=== PATIENT | female | born 1935 | race Caucasian/White ===

== ENCOUNTER 2016-09-24 14:05 | Inpatient (IN) | payer OTHER ==
[~2016-09-24] VITALS: Ht 167.6 cm; Wt 64.0 kg
[~2016-09-24 14:05] MED LIST: AMT10 PO; ATV1 PO; BISA-16 PO; CHOL400C7 PO; CLTP PO; HYDR2TAB PO; HYDR2TAB48 PO; LEVO1TAB50 PO; LRS10 PO; POLY335040 PO
[2016-09-24] MEDS ORDERED: OPTIRAY 320 IV PRN (15:00)
[2016-09-24] MEDS ORDERED: CLINDAMYCIN IV 900 MG in DEXTROSE 5% ADD-VANTAGE 100ML 100 ML IV ONE (15:00)
[2016-09-24] MEDS ORDERED: MULT-513 PO (15:29)
[2016-09-24] MEDS ORDERED: FURO40TA3 PO (15:29)
[2016-09-24 16:04] LABS: COMPLETE YES; HEMATOCRIT 42.6 % (37-47); IG% 0.1 %; LYMPH % 6.4 %; LYMPH ABS # 0.57 K/uL (1.2-3.4); MEAN CELL VOLUME 87.8 fL (80-100); MEAN CORPUSCULAR HEMOGLOBIN 29.9 pg (25-34); MEAN PLATELET VOLUME 11.4 fL (7.4-10.4); MONO % 13.9 %; NEUT % 79.6 %; PLATELET COUNT 196 K/uL (130-400); RED BLOOD COUNT 4.85 M/uL (4.2-5.4); WHITE BLOOD COUNT 8.86 K/uL (4.8-10.8)
[2016-09-24 16:15] LABS: PROTHROMBIN TIME (PATIENT) 10.7 SECONDS (9.0-12.0)
[2016-09-24 16:26] LABS: BUN/CREATININE RATIO 11.5 (10-20); CALCIUM 9.1 mg/dl (8.5-10.1); CREATININE 0.52 mg/dl (0.60-1.20); POTASSIUM 3.4 mmol/L (3.5-5.1)
--- NOTE | 2016-09-24 17:27 | DIAGNOSTIC IMAGING REPORT ---
CT neck with intravenous contrast. HISTORY: Right neck swelling. eval for abscess/bulmaro TECHNIQUE: Multiaxial CT images of the neck were performed following the use of intravenous contrast. COMPARISON STUDY: None. FINDINGS: The paranasal sinuses and mastoid air cells are clear. The visualized brain parenchyma and orbits are unremarkable. The parotid and submandibular glands appear symmetric. Difficult evaluation of the neck due to patient's positioning. The major mucosal airway surfaces appear to be grossly intact. Prevertebral soft tissues and the epiglottis are normal in thickness. No pneumothorax. The trachea is patent. Moderate calcified plaque within the bilateral carotid bifurcations. This results in 30% stenosis at the proximal right internal carotid artery. No loculated fluid collections to suggest an abscess. Skin thickening and subcutaneous fat stranding along the right side of the jaw which appears to extend into the right sublingual area. However, this is difficult to confirm due to patient's positioning and the dental hardware artifact. There is also mild edema surrounding the inferior right sternocleidomastoid muscle. There is also mild edema surrounding the right masseter muscle. Multiple right lower molar caries and periapical lucencies which measure up to 5 mm in size. This may account for the right lower mandibular soft tissue edema. IMPRESSION: 1. Difficult evaluation due to patient's positioning. 2. Right lateral mandibular and lower neck subcutaneous fat stranding/edema which may extend towards the right sublingual space. However, this is difficult to assess due to patient positioning and the dental hardware artifact. Clinical correlation recommended to evaluate for Bulmaro's angina. There are no loculated fluid collections to suggest an abscess within the soft tissues at this time. 3. Right lower molar caries and periapical lucencies which may account for the right mandibular/neck soft tissue swelling. Electronically signed by: Sunil Hutton M.D. 09/24/2016 5:25 PM Dictated Date/Time: 09/24/2016 5:14 PM
[2016-09-24] MEDS ORDERED: HYDROmorphone HCL 2 MG TAB PO PRN (18:30)
[2016-09-24] MEDS ORDERED: CLINDAMYCIN 600 MG/54 ML D5W IV SCH (18:30)
[2016-09-24] MEDS ORDERED: ONDANSETRON INJ 2 MG/ML 2 ML VIAL IV PRN (18:45)
[2016-09-24] MEDS ORDERED: ACETAMINOPHEN 325 MG TAB PO PRN (18:45)
[2016-09-24] MEDS: HYDROmorphone HCL 2 MG TAB PO PRN ×2 (18:59→22:21)
[2016-09-24] MEDS ORDERED: BACLOFEN 10 MG TAB PO ONE (19:15)
[2016-09-24 19:47] VITALS: BP 169/91; PULSE 81; TEMP 37.2; O2SAT 93; Ht 167.6 cm; Wt 64.0 kg
[2016-09-24] MEDS ORDERED: LEVOTHYROXINE 50 MCG TAB PO ONE (20:00)
[2016-09-24] MEDS: CALCIUM 600MG + VIT D 400 IU TAB PO SCH (20:05)
--- NOTE | 2016-09-24 20:25 | EMERGENCY ROOM VISIT NOTE ---
History Report prepared by Francisco: Angella Brewster Under the Supervision of: Dr. Homer Burden M.D. First contact with patient: 14:39 Chief Complaint: OTHER COMPLAINT Stated Complaint: SWOLLEN FACE History of Present Illness The patient is a 81 year old female who presents to the Emergency Room with complaints of worsening right sided jaw swelling that began 2 days ago. The patient notes that she initially had some pain to her bottom right first molar a few days ago and subsequently developed the swelling. She does have increased pain with cold food and liquid on the right side of her mouth. She had a dose of Dilaudid about an hour ago. She is chronically on MS. Denies fever, body aches, chills, vomiting, or other complaints. Source of History: patient Onset: 2 days ago Position: other (right jaw) Quality: other (swelling) Timing: worsening Associated Symptoms: No chills, No fevers, No vomiting Review of Systems See HPI for pertinent positives & negatives. A total of 10 systems reviewed and were otherwise negative. Past Medical & Surgical Medical Problems: (1) Deep venous thrombosis (2) Diffuse cellulitis of face (3) Endocarditis (4) Hypothyroidism (5) Multiple sclerosis (6) Osteoporosis (7) s/p hysterectomy (8) s/p left LUCERO (9) s/p tonsillectomy Family History Cancer Diabetes mellitus Heart disease Hypertension Social History Smoking Status: Former Smoker Alcohol Use: none Occupation Status: retired Current/Historical Medications Scheduled Amitriptyline Hcl (Elavil *), 20 MG PO HS Baclofen (Baclofen *), 20 MG PO QID PRN Calcium/Vitamin D (Caltrate 600 Plus *), 1 TAB PO BID Cholecalciferol (Vitamin D 400 Iu), 800 INTER.UNIT PO DAILY Hydromorphone Hcl (Dilaudid), 6 MG PO DIRECTED Hydromorphone Hcl (Dilaudid), 4 MG PO DIRECTED Levothyroxine Sodium (Levoxyl), 0.05 MG PO DAILY Lorazepam (Ativan *), 1 MG PO BID Multivitamins/Minerals (Mvi With Minerals), 1 TAB PO DAILY Polyethylene (Miralax Powder Packet), 17 GM PO DAILY PRN Scheduled PRN Furosemide (Lasix), 1 TAB PO DAILY PRN for SWELLING Allergies Coded Allergies: Nitrofurantoin (Unverified Allergy, Severe, FEVER, 09/24/16) Ceftriaxone (Verified Allergy, Mild, 09/24/16) Penicillins (Verified Allergy, Mild, 09/24/16) Sulbactam (Verified Allergy, Mild, 09/24/16) Clavulanic Acid (Verified Allergy, Unknown, "BETA-LACTAMASE INHIBITORS" ALLERGY, 09/24/16) Rifampin (Verified Allergy, Unknown, POSSIBLE DRUG FEVER, 09/24/16) Tazobactam (Verified Allergy, Unknown, "BETA-LACTAMASE INHIBITORS" ALLERGY , 09/24/16) Physical Exam Vital Signs Date Time Temp Pulse Resp B/P Pulse Ox O2 Delivery O2 Flow Rate FiO2 09/24/16 18:15 87 16 173/91 95 Room Air 09/24/16 16:07 78 18 171/88 93 Room Air 09/24/16 14:15 37.0 92 18 186/90 94 Room Air Physical Exam Constitutional: Vital signs reviewed. Eyes: Pupils are equal round reactive to light. Conjunctiva are noninjected. ENT: Mild percussion tenderness to the right mandibular first molar. Significant soft tissue swelling to the right face with cellulitis extending into the neck. No submandibular tenderness or firmness. No elevation of the tongue. Mucous membranes are moist. Neck supple without meningeal signs. Respiratory: Clear to auscultation bilaterally. Breath sounds are equal bilaterally. Cardiovascular: Regular rate and rhythm. No rubs or gallops. GI: Soft, nondistended and nontender. Bowel sounds are present. Musculoskeletal: No peripheral edema. No lower extremity tenderness. Integumentary: No cyanosis. Neurological: The patient is awake and alert. She is wheelchair bound. Psychiatric: Normal affect. Medical Decision & Procedures ER Provider Diagnostic Interpretation: CT results as stated below per my review and radiologist interpretation. CT neck with intravenous contrast. HISTORY: Right neck swelling. eval for abscess/andre TECHNIQUE: Multiaxial CT images of the neck were performed following the use of intravenous contrast. COMPARISON STUDY: None. FINDINGS: The paranasal sinuses and mastoid air cells are clear. The visualized brain parenchyma and orbits are unremarkable. The parotid and submandibular glands appear symmetric. Difficult evaluation of the neck due to patient's positioning. The major mucosal airway surfaces appear to be grossly intact. Prevertebral soft tissues and the epiglottis are normal in thickness. No pneumothorax. The trachea is patent. Moderate calcified plaque within the bilateral carotid bifurcations. This results in 30% stenosis at the proximal right internal carotid artery. No loculated fluid collections to suggest an abscess. Skin thickening and subcutaneous fat stranding along the right side of the jaw which appears to extend into the right sublingual area. However, this is difficult to confirm due to patient's positioning and the dental hardware artifact. There is also mild edema surrounding the inferior right sternocleidomastoid muscle. There is also mild edema surrounding the right masseter muscle. Multiple right lower molar caries and periapical lucencies which measure up to 5 mm in size. This may account for the right lower mandibular soft tissue edema. IMPRESSION: 1. Difficult evaluation due to patient's positioning. 2. Right lateral mandibular and lower neck subcutaneous fat stranding/edema which may extend towards the right sublingual space. However, this is difficult to assess due to patient positioning and the dental hardware artifact. Clinical correlation recommended to evaluate for Andre's angina. There are no loculated fluid collections to suggest an abscess within the soft tissues at this time. 3. Right lower molar caries and periapical lucencies which may account for the right mandibular/neck soft tissue swelling. Electronically signed by: Sunil Hutton M.D. 09/24/2016 5:25 PM Dictated Date/Time: 09/24/2016 5:14 PM Laboratory Results 09/24/16 15:40 Red Blood Count 4.85, Mean Corpuscular Volume 87.8, Mean Corpuscular Hemoglobin 29.9, Mean Corpuscular Hemoglobin Concent 34.0, Mean Platelet Volume 11.4, Neutrophils (%) (Auto) 79.6, Lymphocytes (%) (Auto) 6.4, Monocytes (%) (Auto) 13.9, Eosinophils (%) (Auto) 0.0, Basophils (%) (Auto) 0.0, Neutrophils # (Auto ) 7.05, Lymphocytes # (Auto) 0.57, Monocytes # (Auto) 1.23, Eosinophils # (Auto ) 0.00, Basophils # (Auto) 0.00 09/24/16 15:40 Test 09/24/16 15:40 White Blood Count 8.86 K/uL (4.8-10.8) Red Blood Count 4.85 M/uL (4.2-5.4) Hemoglobin 14.5 g/dL (12.0-16.0) Hematocrit 42.6 % (37-47) Mean Corpuscular Volume 87.8 fL (80-100) Mean Corpuscular Hemoglobin 29.9 pg (25-34) Mean Corpuscular Hemoglobin Concent 34.0 g/dl (32-36) Platelet Count 196 K/uL (130-400) Mean Platelet Volume 11.4 fL (7.4-10.4) Neutrophils (%) (Auto) 79.6 % Lymphocytes (%) (Auto) 6.4 % Monocytes (%) (Auto) 13.9 % Eosinophils (%) (Auto) 0.0 % Basophils (%) (Auto) 0.0 % Neutrophils # (Auto) 7.05 K/uL (1.4-6.5) Lymphocytes # (Auto) 0.57 K/uL (1.2-3.4) Monocytes # (Auto) 1.23 K/uL (0.11-0.59) Eosinophils # (Auto) 0.00 K/uL (0-0.5) Basophils # (Auto) 0.00 K/uL (0-0.2) RDW Standard Deviation 44.7 fL (36.4-46.3) RDW Coefficient of Variation 13.9 % (11.5-14.5) Immature Granulocyte % (Auto) 0.1 % Immature Granulocyte # (Auto) 0.01 K/uL (0.00-0.02) Prothrombin Time 10.7 SECONDS (9.0-12.0) Prothromb Time International Ratio 1.0 (0.9-1.1) Activated Partial Thromboplast Time 26.6 SECONDS (21.0-31.0) Partial Thromboplastin Ratio 1.0 Anion Gap 11.0 mmol/L (3-11) Est Creatinine Clear Calc Drug Dose 80.7 ml/min Estimated GFR () 104.6 Estimated GFR (Non- 90.2 BUN/Creatinine Ratio 11.5 (10-20) Calcium Level 9.1 mg/dl (8.5-10.1) Laboratory results as reviewed by me. Medications Administered Medications (Trade) Dose Ordered Sig/It[place] Route Start Time Stop Time Status Last Admin Dose Admin Clindamycin Phosphate/Dextrose (Cleocin Iv/ Dextrose Add-[place] 100ML) 106 ml @ 100 mls/hr ONE ONCE IV 2/5/17 15:00 09/24/16 16:03 DC 09/24/16 16:02 100 MLS/HR Hydromorphone HCl (Dilaudid Tab) 4 mg Q3H PRN PO 09/24/16 18:30 10/08/16 18:29 09/24/16 18:59 4 MG ED Course 1443: The patient was evaluated in room B8. A complete history and physical exam was performed. 1500: Ordered Clindamycin Phosphate 900 mg/Dextrose 106 ml @ 100 mls/hr IV. 1748: I told the patient her test results and recommended hospitalization after I speak with an oral surgeon. 1754: I discussed the case with Dr. Mix - Oral Surgery. He said that there is no need for surgical intervention at this time and he will see the patient in the hospital once she is on IV antibiotics and her swelling comes down. 1800: I reassessed the patient and talked to her about the plan. She was agreeable. 180: I discussed the case with Leeann Sepulveda PA-C - [facility]. The patient will be evaluated for further management. Medical Decision This is an 81-year-old female who presents with right facial pain and swelling. Differential diagnosis includes cellulitis, infection, facial abscess, periapical abscess, Andre angina. I did perform a limited focused review of portions of the patient's old chart on the electronic medical record. The patient has had no recent pertinent visits to this hospital. I did evaluate the patient as noted above. IV access was established. I did treat the patient with clindamycin IV. She did have Dilaudid prior to arrival and so not require any pain medication here. I did order blood cultures. I did order and review the patient's blood work as noted in the electronic medical record. I did order a CT of the soft tissue neck. I did review the images myself as well as the radiology report as described above. She does have significant facial cellulitis. I do not believe that clinically she has a Andre's angina. There is no elevation of tongue or firmness in the submental region. She does have some swelling on the right jaw but this is mostly redundant tissue. I did discuss the test results with the patient. I did recommend hospitalization for IV antibiotics. I did discuss the case with Dr. Mix of oral surgery. I did discuss case with the hospitalist and case planner. Consults Time Called: 1749 Consulting Physician: Dr. Mix - Oral Surgery Returned Call: 1753 I discussed the case with him. He said that there is no need for surgical intervention at this time and he will see the patient in the hospital once she is on IV antibiotics and her swelling comes down. Additional Consults: Time Called: 1757 Consulted Physician: [facility] Returned Call: [phone] Additional Comments: I discussed the case with her. The patient will be evaluated for further management. Impression Primary Impression: Facial cellulitis Additional Impression: Periapical abscess Scribe Attestation The scribe's documentation has been prepared under my direct and personally reviewed by me in its entirety. I confirm that the note above accurately reflects all work, treatment, procedures, and medical decision making performed by me. Departure Information Dispostion Being Evaluated By Hospitalist Referrals Lee Keller D.O. (PCP) Patient Instructions My [facility] Problem Qualifiers
[2016-09-24] MEDS: NSS + 20MEQ KCL 1000ML 1,000 ML IV SCH (20:43)
[2016-09-24] MEDS: CLINDAMYCIN IV 600 MG in DEXTROSE 5% ADD-VANTAGE 50ML 50 ML IV SCH (20:44)
[2016-09-24] MEDS ORDERED: METHYLPREDNISOLONE IV 60 MG in SYRINGE 0 ML IV STA (21:20)
[2016-09-24] MEDS: AMITRIPTYLINE HCL 10 MG TAB PO SCH (22:20)
[2016-09-24] MEDS: BACLOFEN TAB 20 MG TAB PO PRN (22:22)
[2016-09-24] MEDS: LORAZEPAM 1 MG TAB PO SCH (22:23)
[2016-09-24] MEDS: HEPARIN SOD 5000 UNIT/0.5 ML CARP SQ SCH (22:30)
[2016-09-24 22:48] VITALS: BP 166/83; PULSE 75; TEMP 37.5; O2SAT 94
[2016-09-25] MEDS: CLINDAMYCIN IV 600 MG in DEXTROSE 5% ADD-VANTAGE 50ML 50 ML IV SCH ×4 (03:33→22:07)
[2016-09-25 05:27] LABS: HEMATOCRIT 38.9 % (37-47); MEAN CELL VOLUME 87.8 fL (80-100); MEAN CORPUSCULAR HGB CONC 34.2 g/dl (32-36); PLATELET COUNT 192 K/uL (130-400); RED BLOOD COUNT 4.43 M/uL (4.2-5.4); WHITE BLOOD COUNT 7.78 K/uL (4.8-10.8)
[2016-09-25] MEDS: HEPARIN SOD 5000 UNIT/0.5 ML CARP SQ SCH ×3 (05:39→22:11)
[2016-09-25] MEDS: LEVOTHYROXINE 50 MCG TAB PO SCH (05:41)
[2016-09-25 06:00] LABS: BUN/CREATININE RATIO 16.7 (10-20); CALCIUM 8.4 mg/dl (8.5-10.1); CREATININE 0.37 mg/dl (0.60-1.20); POTASSIUM 3.7 mmol/L (3.5-5.1)
--- NOTE | 2016-09-25 07:10 | HISTORY & PHYSICAL EXAMINATION ---
DATE OF ADMISSION: 09/24/2016 PRIMARY CARE PHYSICIAN: Dr. Keller. CHIEF COMPLAINT: Swelling of the right side of the face for the last 2 days. HISTORY OF PRESENT ILLNESS: Swelling of the right side of the face for the last 2 days and also she did have fever documented at home of about 99 degrees Fahrenheit. She came to the ER with these symptoms. She does not have any problem with breathing, does not have any problem with swallowing. In the ER, she was noted to have swollen right face on the lower side with induration on palpation and also tenderness on palpation with increased local temperature and redness. A CT scan of the soft tissue of the neck that was done today documented as right lateral mandibular and lower neck subcutaneous fat stranding/edema which may extend toward the right sublingual space. There is no loculated fluid collection suggesting abscess within the soft tissue at this time. Right lower molar caries and periapical lucencies, which may account for the right mandibular neck/soft tissue swelling. From that point, the ENT on-call physician was consulted and she was started with IV antibiotic and advised for admission. PAST MEDICAL HISTORY: Significant for multiple sclerosis affecting the legs and right side of the body with involvement of the bladder, history of deep venous thrombosis, osteoporosis, history of hepatitis and infective Endocarditis , mitral valve regurgitation, persistent insomnia, hypothyroidism and chronic anemia. 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 FAMILY HISTORY: Father had heart disorder. Sister has breast cancer, mother had a pacemaker and sister with hypertension. SOCIAL HISTORY: She is . She quit smoking 08/20/1975. Does not use any alcohol. She is mostly bedbound and mobile with a wheelchair and she gets help with ADLs most of the time. REVIEW OF SYSTEMS: Systemic review was unremarkable except those mentioned in history of present complaint. ALLERGIES: ALLERGIC TO CEFTRIAXONE, CLAVULANIC ACID, NITROFURANTOIN, PENICILLIN, RIFAMPIN, SULBACTAM AND TAZOBACTAM. MEDICATIONS: She has been on furosemide 40 mg 1 tablet daily, amitriptyline 10 mg tablet 20 mg daily, baclofen 20 mg q.i.d. as needed, calcium with vitamin D 1 tablet twice daily, vitamin D 400 unit tablet 2 tablets daily, hydromorphone/Dilaudid 4 mg as directed, also Dilaudid 6 mg as directed, levothyroxine sodium 50 mcg daily, lorazepam 1 mg b.i.d., multivitamin 1 tablet daily, MiraLax 17 grams daily. PHYSICAL EXAMINATION: GENERAL: On examination in the Emergency Room, she was not having any acute distress, but she complained of some pain in the right of the face. VITAL SIGNS: Temperature 37.0, pulse 87, blood pressure 173/91, saturation 95% on room air. HEENT: Remarkable for right lower facial swelling with induration, redness and increased local temperature and tenderness involving the right lower jaw area. No definite inflammation noted inside the mouth. NECK: Supple. CHEST: Clear to auscultation bilaterally with decreased breath sounds. HEART: S1, S2 with a 2/6 systolic murmur in the precordium. ABDOMEN: Soft, benign, nontender. EXTREMITIES: Trace edema bilaterally. EXAMINATION OF THE MUSCULOSKELETAL SYSTEM: No acute arthritis. CENTRAL NERVOUS SYSTEM: She was alert, awake. She has multiple sclerosis with flexion deformity involving the right upper extremity and also extension deformity involving the legs, more on the right than the left and she has chronic indwelling Alanis catheter. LABS NOTED TODAY: White count was 8.86, H\T\H 14.5/42.6, platelet was 196. Sodium 137, potassium 3.4, chloride 98, carbon dioxide 28, BUN 6, creatinine 0.52, calcium 9.1. Coagulation profile: PT/INR unremarkable. Imaging scans: CT of the soft tissue of the neck reported as difficult evaluation due to patient's positioning. Right lateral mandibular and lower neck subcutaneous fat stranding/edema which may extend toward the right sublingual space; however, this is difficult to asses due to patient's positioning and the dental hardware defect. Clinical correlation is recommended to evaluate for abscess. There is no loculated fluid collection to suggest an abscess within the soft tissue at this time. Right lower molar caries and periapical lucencies which may account for the right mandibular neck/soft tissue swelling. IMPRESSION AND PLAN: 1. Right lateral mandibular and lower face swelling. The patient will be admitted to medical floor. She may have cellulitis and/or dental abscess. Blood cultures were taken and she was started with intravenous clindamycin. The Emergency Room physician did talk to on-call oral surgeon. The patient will be evaluated while in the hospital from him. Pain medications as needed. 2. Multiple sclerosis with chronic indwelling Alanis catheter. No acute symptoms at this time, but she mentioned that she has been having more weakness involving the left side. She does have deformities in the right side and also in the legs from multiple sclerosis. 3. Hypothyroidism. Continue with current medications. 4. History of osteoporosis. Continue with the supplement. 5. Gastrointestinal prophylaxis with Maalox and Mylanta. 6. Deep venous thrombosis prophylaxis with subQ heparin. 7. Code status. She will be a full code. In my clinical judgment, the beneficiary meets criteria as per CMS for 2-midnight stay in the hospital. ROSANNE
[2016-09-25 07:52] VITALS: BP 158/80; PULSE 84; TEMP 37.5; O2SAT 90
[2016-09-25] MEDS: CEROVITE ADV FORMULA TAB PO SCH (09:00)
[2016-09-25] MEDS: CALCIUM 600MG + VIT D 400 IU TAB PO SCH ×2 (09:00→22:13)
[2016-09-25] MEDS ORDERED: LEVOTHYROXINE 50 MCG TAB PO SCH (09:00)
[2016-09-25] MEDS: CHOLECALCIFEROL 400 INTER.UNIT TAB PO SCH (09:00)
[2016-09-25] MEDS: LACTOBACILLUS ACIDOPHILUS (FLORANEX) TAB PO SCH ×3 (09:11→18:51)
[2016-09-25] MEDS: NSS + 20MEQ KCL 1000ML 1,000 ML IV SCH ×2 (09:11→22:07)
[2016-09-25] MEDS: LORAZEPAM 1 MG TAB PO SCH ×2 (09:11→22:05)
[2016-09-25] MEDS: POLYETHYLENE (MIRALAX) 17 GM PACK PO SCH (09:11)
[2016-09-25] MEDS: HYDROmorphone HCL 2 MG TAB PO PRN ×2 (09:12→13:16)
[2016-09-25] MEDS: BACLOFEN TAB 20 MG TAB PO PRN ×3 (09:13→22:13)
[2016-09-25 10:09] VITALS: O2SAT 90; O2SAT 95
--- NOTE | 2016-09-25 13:01 | Progress Note ---
Internal Med Progress Note Date of Service: Sep 25, 2016. Provider Documentation: SUBJECTIVE: The patient was seen and examined Swelling and pain over the right facial area are better No fever,chills OBJECTIVE: Vital Signs-as noted below Exam: General-No distress Eyes-normal ENT-normal Neck-Right lower facial swelling with induration over right lower lateral Jaw Associated swelling of the upper part of the neck Redness and tenderness are better Lungs-clear to ausucltate bilaterally Heart-Regular Abdomen-Benign,no masses,bowel sound present Extremities-No edema Neuro-AA Has MS and weakness in legs and right UE deformity Lab data as noted below. ASSESSMENT & PLAN: Right lateral mandibular and lower face Cellulitis No definite Abscess on CT scan Ongoing tooth problem in that same area Has been on Clindamycin Blood culture pending Discussed with the Orofacial surgery-will need the tooth to come and will be done as an OP Clinically much better Likely discharge tomorrow Multiple sclerosis with chronic indwelling Alanis catheter. No acute symptoms at this time, she has been having more weakness involving the left side. She does have deformities in the right side and also in the legs from multiple sclerosis. Hypothyroidism. Continue with current medications. History of osteoporosis. Continue with the supplement. Gastrointestinal prophylaxis with Maalox and Mylanta. Deep venous thrombosis prophylaxis with subQ heparin. Code status. She will be a full code. Vital Signs: Date Time Temp Pulse Resp B/P Pulse Ox O2 Delivery O2 Flow Rate FiO2 09/25/16 10:09 90 Room Air 09/25/16 07:52 37.5 84 20 158/80 90 Room Air 09/25/16 07:45 Room Air 09/25/16 00:05 Room Air 09/24/16 22:48 37.5 75 14 166/83 94 Room Air 09/24/16 19:47 37.2 81 20 169/91 93 Room Air 09/24/16 19:17 82 18 166/90 91 Room Air 09/24/16 18:15 87 16 173/91 95 Room Air 09/24/16 16:07 78 18 171/88 93 Room Air 09/24/16 14:15 37.0 92 18 186/90 94 Room Air Lab Results: Results Past 24 Hours Test 09/24/16 15:40 09/25/16 05:10 09/25/16 07:45 Range/Units White Blood Count 8.86 7.78 4.8-10.8 K/uL Red Blood Count 4.85 4.43 4.2-5.4 M/uL Hemoglobin 14.5 13.3 12.0-16.0 g/dL Hematocrit 42.6 38.9 37-47 % Mean Corpuscular Volume 87.8 87.8 80-100 fL Mean Corpuscular Hemoglobin 29.9 30.0 25-34 pg Mean Corpuscular Hemoglobin Concent 34.0 34.2 32-36 g/dl Platelet Count 196 192 130-400 K/uL Mean Platelet Volume 11.4 11.0 7.4-10.4 fL Neutrophils (%) (Auto) 79.6 % Lymphocytes (%) (Auto) 6.4 % Monocytes (%) (Auto) 13.9 % Eosinophils (%) (Auto) 0.0 % Basophils (%) (Auto) 0.0 % Neutrophils # (Auto) 7.05 1.4-6.5 K/uL Lymphocytes # (Auto) 0.57 1.2-3.4 K/uL Monocytes # (Auto) 1.23 0.11-0.59 K/uL Eosinophils # (Auto) 0.00 0-0.5 K/uL Basophils # (Auto) 0.00 0-0.2 K/uL RDW Standard Deviation 44.7 44.9 36.4-46.3 fL RDW Coefficient of Variation 13.9 14.0 11.5-14.5 % Immature Granulocyte % (Auto) 0.1 % Immature Granulocyte # (Auto) 0.01 0.00-0.02 K/uL Prothrombin Time 10.7 9.0-12.0 SECONDS Prothromb Time International Ratio 1.0 0.9-1.1 Activated Partial Thromboplast Time 26.6 21.0-31.0 SECONDS Partial Thromboplastin Ratio 1.0 Sodium Level 137 136 136-145 mmol/L Potassium Level 3.4 3.7 3.5-5.1 mmol/L Chloride Level 98 101 98-107 mmol/L Carbon Dioxide Level 28 24 21-32 mmol/L Anion Gap 11.0 11.0 3-11 mmol/L Blood Urea Nitrogen 6 6 7-18 mg/dl Creatinine 0.52 0.37 0.60-1.20 mg/dl Est Creatinine Clear Calc Drug Dose 80.7 113.5 ml/min Estimated GFR () 104.6 117.0 Estimated GFR (Non- 90.2 100.9 BUN/Creatinine Ratio 11.5 16.7 10-20 Random Glucose 98 134 70-99 mg/dl Calcium Level 9.1 8.4 8.5-10.1 mg/dl Bedside Glucose 115 70-90 mg/dl Microbiology Results 09/24/16 Blood Culture, Received Pending 09/24/16 Blood Culture, Received Pending
[2016-09-25 15:15] VITALS: BP 125/71; PULSE 73; TEMP 37; O2SAT 90
[2016-09-25 15:45] VITALS: O2SAT 90
[2016-09-25] MEDS: AMITRIPTYLINE HCL 10 MG TAB PO SCH (22:05)
[2016-09-25 23:18] VITALS: BP 159/94; PULSE 87; TEMP 37; O2SAT 92
[2016-09-26] MEDS: CLINDAMYCIN IV 600 MG in DEXTROSE 5% ADD-VANTAGE 50ML 50 ML IV SCH ×2 (03:45→09:19)
[2016-09-26] MEDS: LEVOTHYROXINE 50 MCG TAB PO SCH (05:33)
[2016-09-26] MEDS: HEPARIN SOD 5000 UNIT/0.5 ML CARP SQ SCH ×2 (05:53→13:56)
[2016-09-26] MEDS: BACLOFEN TAB 20 MG TAB PO PRN ×2 (05:56→09:13)
[2016-09-26 07:41] VITALS: BP 135/75; PULSE 72; TEMP 37; O2SAT 90
[2016-09-26] MEDS: CALCIUM 600MG + VIT D 400 IU TAB PO SCH (09:00)
[2016-09-26] MEDS: POLYETHYLENE (MIRALAX) 17 GM PACK PO SCH (09:00)
[2016-09-26] MEDS: CHOLECALCIFEROL 400 INTER.UNIT TAB PO SCH (09:00)
[2016-09-26] MEDS: LACTOBACILLUS ACIDOPHILUS (FLORANEX) TAB PO SCH ×2 (09:11→12:33)
[2016-09-26] MEDS: CEROVITE ADV FORMULA TAB PO SCH (09:15)
[2016-09-26] MEDS: HYDROmorphone HCL 2 MG TAB PO PRN (09:18)
[2016-09-26] MEDS: LORAZEPAM 1 MG TAB PO SCH (09:18)
[2016-09-26] MEDS: NSS + 20MEQ KCL 1000ML 1,000 ML IV SCH (12:33)
--- NOTE | 2016-09-26 13:18 | Progress Note ---
Internal Med Progress Note Date of Service: Sep 26, 2016. Provider Documentation: SUBJECTIVE: The patient was seen and examined Swelling and pain over the right facial area are much better No fever,chills Remains stable OBJECTIVE: Vital Signs-as noted below Exam: General-No distress at rest Eyes-normal ENT-normal Neck-Right lower facial swelling with induration over right lower lateral Jaw Associated swelling of the upper part of the neck Redness and tenderness are better No fluctuation but still has the induration Lungs-clear to ausucltate bilaterally Heart-Regular Abdomen-Benign,no masses,bowel sound present Extremities-No edema Neuro-AA Has MS and weakness in legs and right UE deformity Lab data as noted below. ASSESSMENT & PLAN: Right lateral mandibular and lower face Cellulitis No definite Abscess on CT scan Ongoing tooth problem in that same area Has been on Clindamycin Blood culture pending Discussed with the Orofacial surgery-will need the tooth to come and will be done as an OP Clinically much better Only Induration but no fluctuation Discussed with Dr Mix -will see her tomorrow AM Multiple sclerosis with chronic indwelling Alanis catheter. No acute symptoms at this time, she has been having more weakness involving the left side. She does have deformities in the right side and also in the legs from multiple sclerosis. Hypothyroidism. Continue with current medications. History of osteoporosis. Continue with the supplement. Gastrointestinal prophylaxis with Maalox and Mylanta. Deep venous thrombosis prophylaxis with subQ heparin. Code status. She will be a full code. Discharge today Vital Signs: Date Time Temp Pulse Resp B/P Pulse Ox O2 Delivery O2 Flow Rate FiO2 09/26/16 07:41 Room Air 09/26/16 07:41 37.0 72 18 135/75 90 Room Air 09/25/16 23:45 Room Air 92 09/25/16 23:18 37.0 87 18 159/94 92 Room Air 09/25/16 15:45 90 09/25/16 15:15 37.0 73 16 125/71 90 Room Air
[2016-09-26] MEDS ORDERED: LCTX PO (13:24)
[2016-09-26] MEDS ORDERED: CLIN300C2 PO (13:24)
--- NOTE | 2016-09-26 13:27 | Discharge Instructions ---
Discharge Instructions Admission Reason for Admission: Diffuse Cellulitis Of Face Discharge Discharge Diagnosis / Problem: Facila Cellulitis,Infected tooth Discharge Goals Goal(s): Prevent Disease Progression Activity Recommendations Activity Limitations: resume your previous activity . Instructions / Follow-Up Instructions / Follow-Up Dr Keller on 10/02/16 at 11:10AM.Dr Mix's office will call for appointment Current Hospital Diet Patient's current hospital diet: Regular Diet Discharge Diet Recommended Diet: Regular Diet Pending Studies Studies pending at discharge: no Medical Emergencies . Who to Call and When: Medical Emergencies: If at any time you feel your situation is an emergency, please call 911 immediately. . Non-Emergent Contact Non-Emergency issues call your: Primary Care Provider . . "Provider Documentation" section prepared by Sherry Gillette. VTE Core Measure Inpt VTE Proph given/why not?: Unfractionated heparin SQ
[2016-09-26 13:59] VITALS: BP 135/75; PULSE 72; TEMP 37; O2SAT 90
[2016-09-26] MEDS ORDERED: CLINDAMYCIN HCL 150 MG CAP PO SCH (14:00)
--- NOTE | 2016-09-27 08:22 | Discharge Summary ---
Discharge Summary Admission Date: Sep 24, 2016 at 18:46 Discharge Date: Sep 26, 2016 Discharge Disposition: Home with services Principal Diagnosis: Right facial Cellulitis/Abscess.Dental Infection Secondary Diagnoses/Problems: Please see H&P Medication Reconciliation New Medications: Clindamycin Hcl (Cleocin) 300 Mg Cap 300 MG PO TID for 7 Days, #21 CAP Lactobacillus Acidophilus (Floranex) 1 Tab Tab 2 TAB PO BID for 10 Days, #40 TAB Continued Medications: Amitriptyline Hcl (Elavil *) 10 Mg Tab 20 MG PO HS Baclofen (Baclofen *) 10 Mg Tab 20 MG PO QID PRN Calcium/Vitamin D (Caltrate 600 Plus *) Tab 1 TAB PO BID Cholecalciferol (Vitamin D 400 Iu) 400 Unit Cap 800 INTER.UNIT PO DAILY, CAP Furosemide (Lasix) 40 Mg Tab 1 TAB PO DAILY PRN for SWELLING for 30 Days, #30 TAB 5 Refills Hydromorphone Hcl (Dilaudid) 2 Mg Tab 6 MG PO DIRECTED, TAB Q 3 HOURS FOR SEVERE PAIN Hydromorphone Hcl (Dilaudid) 2 Mg Tab 4 MG PO DIRECTED, TAB Q 3 HOURS FOR MOERATE PAIN Levothyroxine Sodium (Levoxyl) 50 Mcg Tab 0.05 MG PO DAILY, TAB Lorazepam (Ativan *) 1 Mg Tab 1 MG PO BID Multivitamins/Minerals (Mvi With Minerals) Tab 1 TAB PO DAILY, TAB Polyethylene (Miralax Powder Packet) 17 Gm Pack 17 GM PO DAILY PRN, PACK Admission Information HPI (per Admitting provider): DATE OF ADMISSION: 09/24/2016 PRIMARY CARE PHYSICIAN: Dr. Keller. CHIEF COMPLAINT: Swelling of the right side of the face for the last 2 days. HISTORY OF PRESENT ILLNESS: Swelling of the right side of the face for the last 2 days and also she did have fever documented at home of about 99 degrees Fahrenheit. She came to the ER with these symptoms. She does not have any problem with breathing, does not have any problem with swallowing. In the ER, she was noted to have swollen right face on the lower side with induration on palpation and also tenderness on palpation with increased local temperature and redness. A CT scan of the soft tissue of the neck that was done today documented as right lateral mandibular and lower neck subcutaneous fat stranding/edema which may extend toward the right sublingual space. There is no loculated fluid collection suggesting abscess within the soft tissue at this time. Right lower molar caries and periapical lucencies, which may account for the right mandibular neck/soft tissue swelling. From that point, the ENT on-call physician was consulted and she was started with IV antibiotic and advised for admission. PAST MEDICAL HISTORY: Significant for multiple sclerosis affecting the legs and right side of the body with involvement of the bladder, history of deep venous thrombosis, osteoporosis, history of hepatitis and infective Endocarditis , mitral valve regurgitation, persistent insomnia, hypothyroidism and chronic anemia. 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 FAMILY HISTORY: Father had heart disorder. Sister has breast cancer, mother had a pacemaker and sister with hypertension. SOCIAL HISTORY: She is . She quit smoking 08/20/1975. Does not use any alcohol. She is mostly bedbound and mobile with a wheelchair and she gets help with ADLs most of the time. REVIEW OF SYSTEMS: Systemic review was unremarkable except those mentioned in history of present complaint. ALLERGIES: ALLERGIC TO CEFTRIAXONE, CLAVULANIC ACID, NITROFURANTOIN, PENICILLIN, RIFAMPIN, SULBACTAM AND TAZOBACTAM. MEDICATIONS: She has been on furosemide 40 mg 1 tablet daily, amitriptyline 10 mg tablet 20 mg daily, baclofen 20 mg q.i.d. as needed, calcium with vitamin D 1 tablet twice daily, vitamin D 400 unit tablet 2 tablets daily, hydromorphone/Dilaudid 4 mg as directed, also Dilaudid 6 mg as directed, levothyroxine sodium 50 mcg daily, lorazepam 1 mg b.i.d., multivitamin 1 tablet daily, MiraLax 17 grams daily. PHYSICAL EXAMINATION: GENERAL: On examination in the Emergency Room, she was not having any acute distress, but she complained of some pain in the right of the face. VITAL SIGNS: Temperature 37.0, pulse 87, blood pressure 173/91, saturation 95% on room air. HEENT: Remarkable for right lower facial swelling with induration, redness and increased local temperature and tenderness involving the right lower jaw area. No definite inflammation noted inside the mouth. NECK: Supple. CHEST: Clear to auscultation bilaterally with decreased breath sounds. HEART: S1, S2 with a 2/6 systolic murmur in the precordium. ABDOMEN: Soft, benign, nontender. EXTREMITIES: Trace edema bilaterally. EXAMINATION OF THE MUSCULOSKELETAL SYSTEM: No acute arthritis. CENTRAL NERVOUS SYSTEM: She was alert, awake. She has multiple sclerosis with flexion deformity involving the right upper extremity and also extension deformity involving the legs, more on the right than the left and she has chronic indwelling Alanis catheter. LABS NOTED TODAY: White count was 8.86, H\\T\\H 14.5/42.6, platelet was 196. Sodium 137, potassium 3.4, chloride 98, carbon dioxide 28, BUN 6, creatinine 0.52, calcium 9.1. Coagulation profile: PT/INR unremarkable. Imaging scans: CT of the soft tissue of the neck reported as difficult evaluation due to patient's positioning. Right lateral mandibular and lower neck subcutaneous fat stranding/edema which may extend toward the right sublingual space; however, this is difficult to asses due to patient's positioning and the dental hardware defect. Clinical correlation is recommended to evaluate for abscess. There is no loculated fluid collection to suggest an abscess within the soft tissue at this time. Right lower molar caries and periapical lucencies which may account for the right mandibular neck/soft tissue swelling. IMPRESSION AND PLAN: 1. Right lateral mandibular and lower face swelling. The patient will be admitted to medical floor. She may have cellulitis and/or dental abscess. Blood cultures were taken and she was started with intravenous clindamycin. The Emergency Room physician did talk to on-call oral surgeon. The patient will be evaluated while in the hospital from him. Pain medications as needed. 2. Multiple sclerosis with chronic indwelling Alanis catheter. No acute symptoms at this time, but she mentioned that she has been having more weakness involving the left side. She does have deformities in the right side and also in the legs from multiple sclerosis. 3. Hypothyroidism. Continue with current medications. 4. History of osteoporosis. Continue with the supplement. 5. Gastrointestinal prophylaxis with Maalox and Mylanta. 6. Deep venous thrombosis prophylaxis with subQ heparin. 7. Code status. She will be a full code. In my clinical judgment, the beneficiary meets criteria as per CMS for 2-midnight stay in the hospital. Hospital Course Right lateral mandibular and lower face Cellulitis No definite Abscess on CT scan Ongoing tooth problem in that same area Has been on Clindamycin Blood culture pending Discussed with the Orofacial surgery-will need the tooth to come and will be done as an OP Clinically much better Only Induration but no fluctuation Discussed with Dr Mix -will see her tomorrow AM Multiple sclerosis with chronic indwelling Alanis catheter. No acute symptoms at this time, she has been having more weakness involving the left side. She does have deformities in the right side and also in the legs from multiple sclerosis. Hypothyroidism. Continue with current medications. History of osteoporosis. Continue with the supplement. Gastrointestinal prophylaxis with Maalox and Mylanta. Deep venous thrombosis prophylaxis with subQ heparin. Code status. She will be a full code. Discharge today Total time spent on discharge = 35 minutes This includes examination of the patient, discharge planning, medication reconciliation, and communication with other providers. Discharge Instructions Admission Reason for Admission: Diffuse Cellulitis Of Face Discharge Discharge Diagnosis / Problem: Facial Cellulitis,Infected tooth Discharge Goals Goal(s): Prevent Disease Progression Activity Recommendations Activity Limitations: resume your previous activity . Instructions / Follow-Up Instructions / Follow-Up Dr Keller on 10/02/16 at 11:10AM.Dr Mix's office will call for appointment Current Hospital Diet Patient's current hospital diet: Regular Diet Discharge Diet Recommended Diet: Regular Diet Pending Studies Studies pending at discharge: no Medical Emergencies . Who to Call and When: Medical Emergencies: If at any time you feel your situation is an emergency, please call 911 immediately. . Non-Emergent Contact Non-Emergency issues call your: Primary Care Provider . . "Provider Documentation" section prepared by Sherry Gillette. VTE Core Measure Inpt VTE Proph given/why not?: Unfractionated heparin SQ <Electronically signed by Sherry Gillette M.D.> Additional Copies To Lee Keller D.O.
== END 2016-09-26 15:58 | disposition home health service (06) | DRG 158 ==
LOC: ENRESERVDT → ENRESERVTM → C.EDB 14:06 → C.MSW 18:46
PROVIDERS: ADMIT Internal Medicine; ATTEND Internal Medicine
DX: K04.7 Periapical abscess without sinus (principal); L03.211 Cellulitis of face; G35 Multiple sclerosis; E03.9 Hypothyroidism, unspecified; D64.9 Anemia, unspecified; M81.0 Age-related osteoporosis without current pathological fracture; M21.821 Other specified acquired deformities of right upper arm; M21.852 Other specified acquired deformities of left thigh; M21.851 Other specified acquired deformities of right thigh; Z96.642 Presence of left artificial hip joint; Z96.0 Presence of urogenital implants; Z99.3 Dependence on wheelchair; Z87.891 Personal history of nicotine dependence; Z86.718 Personal history of other venous thrombosis and embolism; Z79.891 Long term (current) use of opiate analgesic; Z79.899 Other long term (current) drug therapy

== ENCOUNTER → 2018-03-19 | Outpatient (CLI) | payer OTHER ==
[~2018-03-19] MED LIST changes: +AMIT10TA6 PO; -AMT10 PO; +ASPI-320 PO; +ATV/1 PO; -ATV1 PO; +BACL10TA PO; -BISA-16 PO; +CALC-354 PO; -CHOL400C7 PO; +CLC100 PO; -CLTP PO; +ERGO500011 PO; +FRRS300 PO; +FRS/40 PO; -HYDR2TAB PO; -LEVO1TAB50 PO; +LEVO50TA PO; +LPR25 PO; -LRS10 PO; +LVQ500 PO; +MULT-513 PO; +POLY335019 PO; -POLY335040 PO; +TUMS PO
[2018-03-19 18:38] LABS: HEMATOCRIT 35.3 % (37-47); HEMOGLOBIN 11.3 g/dL (12.0-16.0); MEAN CELL VOLUME 91.2 fL (80-100); MEAN CORPUSCULAR HEMOGLOBIN 29.2 pg (25-34); MEAN PLATELET VOLUME 10.9 fL (7.4-10.4); PLATELET COUNT 260 K/uL (130-400); RED CELL DISTRIBUTION WIDTH CV 16.3 % (11.5-14.5); RED CELL DISTRIBUTION WIDTH SD 54.4 fL (36.4-46.3); WHITE BLOOD COUNT 6.51 K/uL (4.8-10.8)
[2018-03-19 18:50] LABS: BLOOD UREA NITROGEN 5 mg/dl (7-18); CALCIUM 8.4 mg/dl (8.5-10.1); CARBON DIOXIDE 28 mmol/L (21-32); CREATININE 0.41 mg/dl (0.60-1.20); GLUCOSE 137 mg/dl (70-99); POTASSIUM 3.6 mmol/L (3.5-5.1); SODIUM 136 mmol/L (136-145)
== END | disposition home or self-care (01) ==
LOC: C.LABSPEC 17:58
PROVIDERS: ATTEND Internal Medicine
DX: D50.9 Iron deficiency anemia, unspecified (principal)

== ENCOUNTER 2019-10-26 21:36 | Inpatient (IN) ==
[2019-10-26] MEDS ORDERED: SODIUM CHLORIDE 0.9% 1000ML 1,000 ML IV SCH (22:00)
--- NOTE | 2019-10-26 22:12 | XRay Report ---
SINGLE VIEW CHEST CLINICAL HISTORY: Seizure. FINDINGS: 2 AP, portable, semierect chest radiographs are compared to study dated 08/19/2018. Correla tion is made with chest CT dated 02/14/2018. The examination is severely degraded by portable techniqu e, scoliosis, and patient rotation. The heart is enlarged and there is atherosclerotic calcification of the thoracic aorta. The pulmonary vasculature is noncongested. Chronic interstitial thickening is similar to previous. Biapical scarring is observed. Patchy airspace consolidation is seen in the righ t upper lobe. Dense consolidation is noted at the right lung base. No large pleural effusion or pneum othorax is seen. The skeletal structures are osteopenic. Degenerative change and scoliosis are noted in the thoracic spine. IMPRESSION: 1. Cardiomegaly without radiographic evidence of congestive failure. 2. There is patchy airspace consolidation in the right upper lobe with dense airspace consolidation a t the right lung base. Correlate clinically for evidence of pneumonia/aspiration pneumonitis. Radiogr aphic follow-up to resolution is recommended. Electronically signed by: Min Faustin M.D. 10/26/2019 10:11 PM
[2019-10-26 22:49] LABS: Basophils # (auto) 0.01 K/uL (0-0.2); Basophils % (auto) 0.2 %; Eosinophils # (auto) 0.03 K/uL (0-0.5); Eosinophils % (auto) 0.5 %; Hematocrit (blood only) 41.8 % (37-47); Hemoglobin 14.2 g/dL (12.0-16.0); Immature Granulocytes # (auto) 0.02 K/uL (0.00-0.02); Immature Granulocytes % (auto) 0.3 %; Lymphocytes # (auto) 0.58 K/uL (1.2-3.4); Mean Corpuscular Hemoglobin 29.2 pg (25-34); Mean Corpuscular Volume 85.8 fL (80-100); Mean Platelet Volume 10.7 fL (7.4-10.4); Monocytes # (auto) 0.66 K/uL (0.11-0.59); Monocytes % (auto) 10.2 %; Neutrophils # (auto) 5.16 K/uL (1.4-6.5); Neutrophils % (auto) 79.8 %; Platelet Count 198 K/uL (130-400); RDW Coefficient of Variation 15.4 % (11.5-14.5); RDW Standard Deviation 48.9 fL (36.4-46.3); Red Blood Count 4.87 M/uL (4.2-5.4); White Blood Count 6.46 K/uL (4.8-10.8)
--- NOTE | 2019-10-26 22:59 | CT Scan Report ---
CT SCAN OF THE BRAIN WITHOUT IV CONTRAST CLINICAL HISTORY: Seizure. COMPARISON STUDY: CT of the brain dated 07/30/2018. TECHNIQUE: Unenhanced axial CT scan of the brain is performed from the vertex to the skull base. A do se lowering technique was utilized adhering to the principles of ALARA. The examination is modestly d egraded by motion artifact. CT DOSE: 537.48 mGy.cm FINDINGS: Brain parenchyma: There are age-related involutional changes noting moderate to advanced subcortical and periventricular microangiopathic change. Foci of right temporal and right parietal encephalomala rodriguez are consistent with a remote insult. There is no hemorrhage, mass effect, or evidence of acute te rritorial ischemia by CT criteria. Natarajan-white matter differentiation is preserved. No extra-axial flu id collection is seen. Ventricles, sulci, cisterns: Prominent secondary to involutional change. Intracranial vasculature: There is atherosclerotic calcification of the cavernous carotid arteries. Calvarium: Unremarkable. Sinuses and mastoids: The visualized paranasal sinuses are clear. The mastoid air cells are well pneu matized. Orbits: The bony orbits are grossly intact. IMPRESSION: There is no hemorrhage, mass effect, or evidence of acute territorial ischemia by CT laura rodriguez. ACT 112: Negative or not required by law. Electronically signed by: Min Faustin M.D. 10/26/2019 10:58 PM
[2019-10-26 23:07] LABS: Alanine Aminotransferase 11 U/L (12-78); Albumin Level 3.7 gm/dl (3.4-5.0); Aspartate Aminotransferase 20 U/L (15-37); BUN Creatinine Ratio 36.7 (10-20); Blood Urea Nitrogen 17 mg/dl (7-18); Carbon Dioxide 27 mmol/L (21-32); Chloride 95 mmol/L (98-107); Est GFR (African American) 107.4; Est GFR (Non-African American) 92.7; Glucose 111 mg/dl (70-99); Lipase 36 U/L (73-393); Magnesium 1.8 mg/dl (1.8-2.4); Potassium 3.9 mmol/L (3.5-5.1); Sodium 130 mmol/L (136-145)
[2019-10-26 23:10] LABS: INR 1.1 (0.9-1.1); Partial Thromboplastin Time 27.6 Seconds (21.0-31.0); Prothrombin Time 11.5 Seconds (9.0-12.0)
[2019-10-26 23:11] LABS: Alkaline Phosphatase 130 U/L (45-117); Bilirubin Direct 0.3 mg/dl (0-0.2); Creatine Kinase 107 U/L (26-192); Total Protein 8.1 gm/dl (6.4-8.2)
[2019-10-26] MEDS ORDERED: metroNIDAZOLE 500 MG/100 ML BAG IV STA (23:17)
[2019-10-26] MEDS ORDERED: LEVOFLOXACIN/D5W 750 MG/150 ML BAG IV SCH (23:30)
--- NOTE | 2019-10-26 23:57 | Emergency Department Note ---
Entered by Hien Mosquera acting as a scribe for Marek Thurman History of Present Illness General Chief complaint: Seizure Stated complaint: SEIZURE, AMS, AGITATED, COMBATIVE Time Seen by Provider: 10/26/19 21:42 Source: patient Mode of arrival: EMS Limitations: altered mental status History of Present Illness Onset (ago): hour(s) less than 1 Location: head Pain Consistency: + constant Quality: + other (seizure) Relieved By: + none Exacerbated By: + none Treatments prior to arrival: none The patient is a 84 year old female who presents to the Emergency Room with complaints of seizure that occurred less than an hour ago. EMS reports that the patient is bed all the time. Her seizure reportedly lasted about 1 minute. The patient has a history of MS and A fib. History is limited due to altered mental status. Home Medications Home Medications Medication Instructions Recorded Confirmed Type amitriptyline 20 mg PO HS 07/30/18 10/26/19 History aspirin 81 mg PO DAILY 07/30/18 10/26/19 History baclofen 20 mg PO QID 07/30/18 10/26/19 History levothyroxine 50 mcg PO DAILY 07/30/18 10/26/19 History metoprolol tartrate 12.5 mg PO BID 07/30/18 10/26/19 History polyethylene glycol 3350 [Miralax] 17 g PO DAILY PRN 07/30/18 10/26/19 History lorazepam [Ativan] 0.5 mg PO BID PRN 07/31/18 10/26/19 History lorazepam [Ativan] 1 mg PO HS 07/31/18 10/26/19 History levofloxacin 500 mg tablet 500 mg PO DAILY #30 tab 08/15/19 10/26/19 Rx calcium carbonate-vitamin D3 1 tab PO DAILY 10/26/19 10/26/19 History [Caltrate with Vitamin D3] furosemide 40 mg PO DAILY PRN 10/26/19 10/26/19 History hydromorphone [Dilaudid] 4 mg PO Q3H PRN 10/26/19 10/26/19 History nystatin 1 applic TOPICAL BID 10/26/19 10/26/19 History Allergies Allergy/AdvReac Type Severity Reaction Status Date / Time nitrofurantoin Allergy Severe FEVER Verified 08/26/19 11:30 ceftriaxone Allergy Mild Unknown Verified 08/26/19 11:30 Penicillins Allergy Mild Unknown Verified 08/26/19 11:30 sulbactam Allergy Mild Unknown Verified 08/26/19 11:30 Bactrim Allergy Unknown RASH/HIVES Verified 01/15/18 17:49 clavulanic acid Allergy Unknown "BETA-LACTAMASE Verified 08/26/19 11:30 INHIBITORS" ALLERGY clindamycin Allergy Unknown RASH Verified 08/26/19 11:30 rifampin Allergy Unknown POSSIBLE Verified 08/26/19 11:30 DRUG FEVER sulfamethoxazole Allergy Unknown RASH/HIVES Verified 08/26/19 11:30 tazobactam Allergy Unknown "BETA-LACTAMASE Verified 08/26/19 11:30 INHIBITORS" ALLERGY trimethoprim Allergy Unknown RASH/HIVES Verified 08/26/19 11:30 Past Med/Surg History Medical History Acute CVA (cerebrovascular accident) (Acute) GERD (gastroesophageal reflux disease) (Chronic) History of hepatitis (Chronic) Mitral regurgitation (Chronic) Multiple sclerosis (Chronic) Osteomyelitis (Acute) Permanent atrial fibrillation Sacral decubitus ulcer, stage III (Acute) Surgical History H/O cystoscopy (Chronic) S/P hysterectomy (Resolved Unknown) S/P tonsillectomy (Resolved Unknown) Family History Other Family history non-contributory Social History Preferred Language: Georgian Communication Ability: Effective Beliefs That Will Affect Care: None marital status: / Current Living Situation: Family Current Living Situation Comment: lives with son Feels Safe at Home: Yes Smoking Status: Unknown if ever smoked Hx Alcohol Use: No Hx Substance Use: No Review of Systems See HPI for pertinent positives & negatives. and A total of 10 systems reviewed and were otherwise negative Physical Exam Vital Signs Vital Signs - 24 hr 10/26/19 21:36 10/26/19 21:54 10/26/19 21:56 Temperature 36.4 C L Temperature Source Oral Pulse Rate 96 H 92 H Pulse Rate from SpO2 Sensor 88 Respiratory Rate 23 Respiratory Depth Normal Blood Pressure 169/111 H Blood Pressure Mean 130 Pulse Oximetry 93 93 Oxygen Delivery Method Room Air Room Air Room Air Sepsis Recent Fever Within 48 Hours No Sepsis New/Unexplained Change in Mental Status Yes Sepsis Action Taken by Nursing No Action Required 10/26/19 22:00 10/26/19 22:52 10/26/19 23:00 Temperature Temperature Source Pulse Rate 86 84 90 Pulse Rate from SpO2 Sensor Respiratory Rate 16 21 Respiratory Depth Blood Pressure 171/110 H 175/127 H Blood Pressure Mean 139 139 Pulse Oximetry 93 96 Oxygen Delivery Method Room Air Room Air Sepsis Recent Fever Within 48 Hours Sepsis New/Unexplained Change in Mental Status Sepsis Action Taken by Nursing 10/26/19 23:01 Temperature Temperature Source Pulse Rate 93 H Pulse Rate from SpO2 Sensor Respiratory Rate 15 Respiratory Depth Blood Pressure Blood Pressure Mean Pulse Oximetry 96 Oxygen Delivery Method Room Air Sepsis Recent Fever Within 48 Hours Sepsis New/Unexplained Change in Mental Status Sepsis Action Taken by Nursing GENERAL: She is oriented to person, place, and time. She appears well-developed and well-nourished. She does not appear distressed. HENT: Exam performed. Head: Normocephalic and atraumatic. Right Ear: External ear normal. No mastoid tenderness. Left Ear: External ear normal. No mastoid tenderness. Mouth/Throat: Dry mucus membranes. The oropharynx is clear and moist. No trismus in the jaw. No dental abscesses or uvula swelling. No oropharyngeal exudate or tonsillar abscesses. EYES: Conjunctivae and EOM are normal. Pupils are equal, round, and reactive to light. Right eye exhibits no discharge. Left eye exhibits no discharge. No scleral icterus. NECK: Normal range of motion. Neck supple. No JVD present. No spinous process tenderness present. No carotid bruit present. No rigidity. No tracheal deviation and normal range of motion present. No Brudzinski's sign and no Kernig's sign noted. CV: Normal rate, regular rhythm, normal heart sounds and intact distal pulses. There is no peripheral edema. Palpable radial pulses bue. PULM/CHEST: Effort normal and breath sounds normal. No respiratory distress. No stridor. She has no wheezes. She has no rales. Chest Wall: She exhibits no tenderness. ABD: Alanis with purulent looking urine. The abdomen is soft. Bowel sounds are normal. She has no distension. No mass is present. There is no tenderness. There is no rebound, no guarding, no Munoz's sign and no tenderness at McBurney's point. Rovsig negative BACK: Ulcer that is packed. No surrounding discharge or erythema. MUSC/SKEL: Normal range of motion. There is no peripheral edema, tenderness or deformity. LYMPH: No cervical adenopathy. NEURO: She is alert and oriented x 0. Paraplegic. She has normal strength. No cranial nerve deficit or sensory deficit. Coordination and gait normal. GCS eye subscore is 4. GCS verbal subscore is 5. GCS motor subscore is 6. cerbellar tests wnl. SKIN: Skin is warm and dry. She is not diaphoretic. PSYCH: She has a normal mood and affect. Her behavior is normal. Judgment and thought content normal. Course Course 2142: Past medical records reviewed. The patient was evaluated in room B04B. A c omplete history and physical exam was performed. Cardiac monitoring: An order was placed for continuous cardiac monitoring. The monitor shows a rate of 93 with sinus rhythm 2199: The patients son arrived and is sitting at bedside. He notes that most of the weekend, she has been slightly altered and confusing her dreams for reality. The patient was getting ready for dinner tonight, and her son states that it looked like she experienced a seizure. Her head and left side and went rigid. Her eyes rolled back slightly and the patient was unresponsive. After about a minute or two her body relaxed, but she was still not responsive. The patient was able to start talking by the time the ambulance arrived, but her words did not make sense. She has no history of seizure. The patient has bladder contractions with her MS that sometimes makes her feel like she needs to urinate. The patient ran out of Ativan about 4 days ago, and was not getting it refilled until she sees her PCP again this week. 4: The patients vital signs are stable. Labs show that the patient appears dehydrated. Her sodium is 130, and her lactic acid is within normal limits. The patients CT of head was within normal limits. There is concern for aspiration pneumonia on the chest X-ray. The patient has no elevated white blood cell count. A page to neurology has been sent out at this time. 2315: [facility] the patient. The patient and family understand and are agreeable to the treatment plan. The patient will be evaluated for further treatment. 2348: There is still no response from neurology, so we are going to treat the patient with Keppra 1g. Administered Medications Sodium Chloride (Nss 1000ml) 1,000 mls @ 125 mls/hr IV .Q8H CHRISTOFER Stop: 11/25/19 21:59 Last Admin: 10/26/19 22:56 Dose: 125 mls/hr Documented by: [id number] Levofloxacin/Dextrose (Levaquin/D5w) 750 mg in 150 mls @ 100 mls/hr IV Q24H CHRISTOFER Stop: 11/02/19 23:29 Last Admin: 10/26/19 23:26 Dose: 100 mls/hr Documented by: [id number] Medical Decision Making Medical Records Attestation: I reviewed the patient's medical records. Home Medications Current Medication List: was personally reviewed by me Laboratory Data Attestation: I reviewed the patient's lab results. Result diagrams: 10/26/19 22:38 10/26/19 22:38 Lab Results 10/26/19 10/26/19 10/26/19 Range/Units 22:11 22:38 22:38 WBC 6.46 (4.8-10.8) K/uL RBC 4.87 (4.2-5.4) M/uL Hgb 14.2 (12.0-16.0) g/dL Hct 41.8 (37-47) % MCV 85.8 (80-100) fL MCH 29.2 (25-34) pg MCHC 34.0 (32-36) g/dL RDW Std Deviation 48.9 H (36.4-46.3) fL RDW Coeff of Arsenio 15.4 H (11.5-14.5) % Plt Count 198 (130-400) K/uL MPV 10.7 H (7.4-10.4) fL Immature Gran % (Auto) 0.3 % Neut % (Auto) 79.8 % Lymph % (Auto) 9.0 % Churchill % (Auto) 10.2 % Eos % (Auto) 0.5 % Baso % (Auto) 0.2 % Immature Gran # (Auto) 0.02 (0.00-0.02) K/uL Neut # (Auto) 5.16 (1.4-6.5) K/uL Lymph # (Auto) 0.58 L (1.2-3.4) K/uL Churchill # (Auto) 0.66 H (0.11-0.59) K/uL Eos # (Auto) 0.03 (0-0.5) K/uL Baso # (Auto) 0.01 (0-0.2) K/uL PT 11.5 (9.0-12.0) Seconds INR 1.1 (0.9-1.1) APTT 27.6 (21.0-31.0) Seconds PTT Ratio 1.0 Sodium (136-145) mmol/L Potassium (3.5-5.1) mmol/L Chloride (98-107) mmol/L Carbon Dioxide (21-32) mmol/L Anion Gap (3-11) BUN (7-18) mg/dl Creatinine (0.6-1.2) mg/dl Est Cr Clr Drug Dosing Est GFR ( Amer) Est GFR (Non-Af Amer) BUN/Creatinine Ratio (10-20) Glucose (70-99) mg/dl POC Glucose 101 H (70-99) mg/dl Lactate (0.4-2.0) mmol/L Calcium (8.5-10.1) mg/dl Magnesium (1.8-2.4) mg/dl Total Bilirubin (0.2-1) mg/dl Direct Bilirubin (0-0.2) mg/dl AST (15-37) U/L ALT (12-78) U/L Alkaline Phosphatase (45-117) U/L Total Creatine Kinase (26-192) U/L Total Protein (6.4-8.2) gm/dl Albumin (3.4-5.0) gm/dl Lipase (73-393) U/L Prolactin ng/ml 10/26/19 10/26/19 10/26/19 Range/Units 22:38 22:38 22:38 WBC (4.8-10.8) K/uL RBC (4.2-5.4) M/uL Hgb (12.0-16.0) g/dL Hct (37-47) % MCV (80-100) fL MCH (25-34) pg MCHC (32-36) g/dL RDW Std Deviation (36.4-46.3) fL RDW Coeff of Arsenio (11.5-14.5) % Plt Count (130-400) K/uL MPV (7.4-10.4) fL Immature Gran % (Auto) % Neut % (Auto) % Lymph % (Auto) % Churchill % (Auto) % Eos % (Auto) % Baso % (Auto) % Immature Gran # (Auto) (0.00-0.02) K/uL Neut # (Auto) (1.4-6.5) K/uL Lymph # (Auto) (1.2-3.4) K/uL Churchill # (Auto) (0.11-0.59) K/uL Eos # (Auto) (0-0.5) K/uL Baso # (Auto) (0-0.2) K/uL PT (9.0-12.0) Seconds INR (0.9-1.1) APTT (21.0-31.0) Seconds PTT Ratio Sodium 130 L (136-145) mmol/L Potassium 3.9 (3.5-5.1) mmol/L Chloride 95 L (98-107) mmol/L Carbon Dioxide 27 (21-32) mmol/L Anion Gap 8.0 (3-11) BUN 17 (7-18) mg/dl Creatinine 0.45 L (0.6-1.2) mg/dl Est Cr Clr Drug Dosing Not Reportable Est GFR ( Amer) 107.4 Est GFR (Non-Af Amer) 92.7 BUN/Creatinine Ratio 36.7 H (10-20) Glucose 111 H (70-99) mg/dl POC Glucose (70-99) mg/dl Lactate 1.9 (0.4-2.0) mmol/L Calcium 9.0 (8.5-10.1) mg/dl Magnesium 1.8 (1.8-2.4) mg/dl Total Bilirubin 1.0 (0.2-1) mg/dl Direct Bilirubin 0.3 H (0-0.2) mg/dl AST 20 (15-37) U/L ALT 11 L (12-78) U/L Alkaline Phosphatase 130 H (45-117) U/L Total Creatine Kinase 107 (26-192) U/L Total Protein 8.1 (6.4-8.2) gm/dl Albumin 3.7 (3.4-5.0) gm/dl Lipase 36 L (73-393) U/L Prolactin 5.67 ng/ml Imaging Data Radiologist's Impression: Radiology results as stated below per my review and the radiologist's interpretation: SINGLE VIEW CHEST CLINICAL HISTORY: Seizure. FINDINGS: 2 AP, portable, semierect chest radiographs are compared to study dated 08/19/2018. Correlation is made with chest CT dated 02/14/2018. The examination is severely degraded by portable technique, scoliosis, and patient rotation. The heart is enlarged and there is atherosclerotic calcification of the thoracic aorta. The pulmonary vasculature is noncongested. Chronic interstitial thickening is similar to previous. Biapical scarring is observed. Patchy airspace consolidation is seen in the right upper lobe. Dense consolidation is noted at the right lung base. No large pleural effusion or pneumothorax is seen. The skeletal structures are osteopenic. Degenerative change and scoliosis are noted in the thoracic spine. IMPRESSION: 1. Cardiomegaly without radiographic evidence of congestive failure. 2. There is patchy airspace consolidation in the right upper lobe with dense air space consolidation at the right lung base. Correlate clinically for evidence of pneumonia/aspiration pneumonitis. Radiographic follow-up to resolution is recommended. Electronically signed by: Min Faustin M.D. 10/26/2019 10:[address] SCAN OF THE BRAIN WITHOUT IV CONTRAST CLINICAL HISTORY: Seizure. COMPARISON STUDY: CT of the brain dated 07/30/2018. TECHNIQUE: Unenhanced axial CT scan of the brain is performed from the vertex to the skull base. A dose lowering technique was utilized adhering to the principles of ALARA. The examination is modestly degraded by motion artifact. CT DOSE: 537.48 mGy.cm FINDINGS: Brain parenchyma: There are age-related involutional changes noting moderate to advanced subcortical and periventricular microangiopathic change. Foci of right temporal and right parietal encephalomalacia are consistent with a remote insult. There is no hemorrhage, mass effect, or evidence of acute territorial ischemia by CT criteria. Natarajan-white matter differentiation is preserved. No extra-axial fluid collection is seen. Ventricles, sulci, cisterns: Prominent secondary to involutional change. Intracranial vasculature: There is atherosclerotic calcification of the cavernous carotid arteries. Calvarium: Unremarkable. Sinuses and mastoids: The visualized paranasal sinuses are clear. The mastoid air cells are well pneumatized. Orbits: The bony orbits are grossly intact. IMPRESSION: There is no hemorrhage, mass effect, or evidence of acute territorial ischemia by CT criteria. ACT 112: Negative or not required by law. Electronically signed by: Min Faustin M.D. 10/26/2019 10:58 PM Blood Pressure Blood Pressure Findings: Elevated blood pressure Blood Pressure Disposition: further management by hospitalist JONATAN Narrative 2142: Past medical records reviewed. The patient was evaluated in room B04B. A complete history and physical exam was performed. Cardiac monitoring: An order was placed for continuous cardiac monitoring. The monitor shows a rate of 93 with sinus rhythm 2199: The patients son arrived and is sitting at bedside. He notes that most of the weekend, she has been slightly altered and confusing her dreams for reality. The patient was getting ready for dinner tonight, and her son states that it looked like she experienced a seizure. Her head and left side and went rigid. Her eyes rolled back slightly and the patient was unresponsive. After about a minute or two her body relaxed, but she was still not responsive. The patient was able to start talking by the time the ambulance arrived, but her words did not make sense. She has no history of seizure. The patient has bladder contractions with her MS that sometimes makes her feel like she needs to urinate. The patient ran out of Ativan about 4 days ago, and was not getting it refilled until she sees her PCP again this week. 2304: The patients vital signs are stable. Labs show that the patient appears dehydrated. Her sodium is 130, and her lactic acid is within normal limits. The patients CT of head was within normal limits. There is concern for aspiration pneumonia on the chest X-ray. The patient has no elevated white blood cell count. A page to neurology has been sent out at this time. 2315: I spoke to Dr. Banks, [facility] hospitalist, who agreed to take over care of the patient. The patient and family understand and are agreeable to the treatment plan. The patient will be evaluated for further treatment. 2348: There is still no response from neurology, so we are going to treat the patient with Christine oconnell. Impression & Plan AMS (altered mental status), Seizure Discharge Plan Visit Data Chief Complaint: Seizure Stated Complaint: SEIZURE, AMS, AGITATED, COMBATIVE ED Provider: Marek Thurman Discharge Problem: AMS (altered mental status), Seizure Forms Stand Alone Forms: My [facility] Prescriptions Prescriptions: No Action levofloxacin 500 mg tablet 500 mg PO DAILY Qty: 30 RF: 5 levothyroxine 50 mcg Tablet 50 mcg PO DAILY RF: 0 metoprolol tartrate 25 mg tablet 12.5 mg PO BID RF: 0 aspirin 81 mg Tablet,Delayed Release (Dr/Ec) 81 mg PO DAILY RF: 0 amitriptyline 10 mg Tablet 20 mg PO HS RF: 0 baclofen 10 mg Tablet 20 mg PO QID RF: 0 polyethylene glycol 3350 [Miralax] 17 gram/dose Powder 17 g PO DAILY PRN (Reason: Constipation) RF: 0 lorazepam [Ativan] 0.5 mg Tablet 0.5 mg PO BID PRN (Reason: Anxiety) RF: 0 lorazepam [Ativan] 1 mg Tablet 1 mg PO HS RF: 0 furosemide 40 mg Tablet 40 mg PO DAILY PRN (Reason: Edema) RF: 0 hydromorphone [Dilaudid] 4 mg Tablet 4 mg PO Q3H PRN (Reason: Pain, Moderate) RF: 0 calcium carbonate-vitamin D3 [Caltrate with Vitamin D3] 600 mg(1,500mg) -800 unit Tablet 1 tab PO DAILY RF: 0 nystatin 100,000 unit/gram Powder 1 applic TOPICAL BID RF: 0 Discharge Problem: AMS (altered mental status) Qualifiers: Altered mental status type: unspecified Qualified Code(s): R41.82 - Altered mental status, unspecified The scribe's documentation has been prepared under my direction and personally reviewed by me in its entirety. I confirm that the note above accurately reflects all work, treatment, procedures, and medical decision making performed by me.
[2019-10-27] MEDS ORDERED: POLYETHYLENE (MIRALAX) 17 GM PACK PO PRN (01:36)
[2019-10-27] MEDS ORDERED: NITROGLYCERIN SL 0.4 MG/TAB TAB SL PRN (01:36)
[2019-10-27] MEDS ORDERED: ONDANSETRON INJ 2 MG/ML 2 ML VIAL IV PRN (01:36)
[2019-10-27] MEDS ORDERED: FUROSEMIDE 40 MG TAB PO PRN (01:36)
[2019-10-27] MEDS ORDERED: ACETAMINOPHEN 325 MG TAB PO PRN (01:36)
[2019-10-27] MEDS ORDERED: LORazepam 1 MG/2 ML VIAL IV PRN (01:36)
[2019-10-27] MEDS ORDERED: LORazepam 0.5 MG TAB PO PRN (01:36)
[2019-10-27] MEDS: SODIUM CHLORIDE 0.9% 1000ML 1,000 ML IV SCH ×2 (01:40→08:08)
[2019-10-27] MEDS ORDERED: ERTAPENEM CONSULT ACTIVE PRN (01:52)
[2019-10-27] MEDS ORDERED: PATIENT'S HEIGHT AND/OR WEIGHT NEEDED SCH (02:00)
[2019-10-27] MEDS ORDERED: ERTAPENEM SODIUM 1,000 MG in SODIUM CHLORIDE 0.9% 50 ML IV SCH (03:00)
--- NOTE | 2019-10-27 03:06 | History and Physical Report ---
DATE OF ADMISSION: 10/27/2019 CHIEF COMPLAINT: Seizures. HISTORY OF PRESENT ILLNESS: This is an 84-year-old female with past medical history significant for hypothyroidism, atrial fibrillation, mitral valve regurgitation, urinary retention, on chronic Alanis catheter, multiple sclerosis with functional quadriplegia secondary to multiple sclerosis, chronic pain disorder, compression fracture of the spine, lower extremity edema, osteoporosis, anemia. The patient lives with her son, mostly bedbound. Son helps her to go to the bathroom. Presents with seizure-like episode. Last night around 8:30 p.m., she had a brief episode of 1-2 minutes of stiffness, seemed like seizure kind of episode, after that she rolled her eyes and she was unresponsive for some time and when woke up she was almost speaking gibberish for about 20 minutes and slowly improved. Now her mental status seemed to be back to baseline. In the ER, she had no more seizures. In the ER, CT of the head was okay. Labs are all fine. The patient is getting loaded with Keppra and her procalcitonins and lactate levels are okay. On chest x-ray, it looks like aspiration pneumonitis. Son says she is on regular diet. No dysphagia, but because she is always on the bed lying sometimes she may choke on the food. The patient has some chest pain, but more when taking deep breath. Denies any shortness of breath, no cough, no fever, no chills. Has some headache. Sometimes on and off she gets visual hallucinations.Has some pain behind her right ear from her MS. No sore throat. No biting of the tongue or incontinence during the episode. Currently, no nausea. She has chronic abdominal pain. No rash. Currently alert and oriented x2 and hemodynamically stable. ALLERGIES: CLINDAMYCIN, BACTRIM, CEFTRIAXONE, CLAVULANIC ACID, MACROBID, PENICILLIN, RIFAMPIN, SULBACTAM. PAST MEDICAL HISTORY: As mentioned above. PAST SURGICAL HISTORY: Hysteroscopy, flexible sigmoidoscopy, partial hysterectomy, tonsillectomy, left total hip replacement, treatment of collapsed spontaneous lung in 1975. MEDICATIONS: The patient is on amitriptyline 20 mg at bedtime, aspirin 81 mg p.o. daily, baclofen 20 mg p.o. b.i.d., calcium carbonate 1 tablet daily, Lasix 40 mg daily p.r.n., Dilaudid 4 mg p.o. q. 3 hours p.r.n., Levaquin 500 mg p.o. daily, levothyroxine 50 mcg p.o. daily, Ativan 0.5 mg p.o. b.i.d. p.r.n., Ativan 1 mg p.o. at bedtime, metoprolol tartrate 12.5 mg p.o. b.i.d., nystatin 1 application topically b.i.d., MiraLax 17 grams p.o. daily p.r.n. FAMILY HISTORY: Significant for father had heart disorder, mother has heart disorder, sister has hypertension, breast cancer. SOCIAL HISTORY: at age of 34, lives with her son. Former smoker, quit in 1975. No alcohol use, no drug use. REVIEW OF SYSTEMS: As per HPI. Rest of review of systems negative. PHYSICAL EXAMINATION: GENERAL: The patient is old and frail, not in acute distress. VITAL SIGNS: Temperature 36.4, pulse 93, respiratory rate 15, blood pressure 175/127, oxygen 96% on room air. HEENT: No pallor, no icterus. Pupils equal, round, reactive to light. NECK: No JVD, no neck masses, no carotid bruit. CARDIOVASCULAR: S1, S2 heard, regular rate and rhythm, no murmur, no gallop. RESPIRATORY SYSTEM: Normal AP diameter. No accessory muscle use. No wheezing, no crackles. ABDOMEN: Soft, bowel sounds present, nontender. No distention. CENTRAL NERVOUS SYSTEM: Cranial nerves II-XII grossly intact. Moves extremities. EXTREMITIES: No edema, no erythema. SKIN: Sacral decubitus ulcer stage II present. LABORATORY DATA: WBC 6.4, hemoglobin 14.2, hematocrit 41.8, platelets 198. PTT 11.5, INR 1.1, APTT 27.6. Sodium 130, potassium 3.9, chloride 95, bicarbonate 27, BUN 17, creatinine 0.4, serum glucose 111, lactate 1.9, calcium 9, magnesium 1.8, total bilirubin 1, direct bilirubin 0.3, AST 20, ALT 11, alkaline phosphatase 130, total creatinine kinase 107. Lipase 36. Procalcitonin 5.67. IMAGING DATA: CT of the head, there is no hemorrhage, mass effect, or evidence of acute territorial ischemia by CT criteria. Chest x-ray, cardiomegaly without radiological evidence of congestive failure. There is patchy airspace consolidation in the right lung base. Clinically, correlate for evidence of pneumonia, aspiration pneumonitis. ASSESSMENT AND PLAN: This is an 84-year-old female who presents with seizure-like episode. 1. Seizure-like episode. CT of the head is unremarkable. Currently, patient is back to baseline. Getting loaded with Keppra in the ER. We will get an EEG in the a.m. IV Ativan p.r.n. for breakthrough seizures. Consult neurology for further recommendation. Closely monitor in the tele floor. 2. Aspiration pneumonitis on chest x-ray. The patient is on regular diet at home. She has MS, she is mostly bedbound and because of position sometimes she may choke as per son. She has multiple drug allergies, we will start on IV Invanz. Follow the cultures. We will keep her n.p.o. except meds and consult speech therapy in a.m. for further recommendations. 3. Chronic sacral decubitus ulcer stage II. Follows with wound care and ID, on Levaquin. We will consult wound care while the patient is in the hospital. 4. Multiple sclerosis, functional quadriplegia secondary to multiple sclerosis. Follows with neurology, bedbound. 5. Chronic pain disorder. Continue with home pain medications. 6. Urinary retention, on Alanis catheter. 7. Hypothyroidism, on Synthroid. 8. Hyponatremia, sodium is 130, getting fluids. We will follow the labs in the a.m. 9. History of atrial fibrillation, rate is under control, on metoprolol. Not on anticoagulation because of bleeding risk. 10. History of endocarditis. 11. Dvt Px scds. 12. Disposition: Closely monitor in tele. Level 1 full code as per my discussion with son. Social service to help with discharge planning. ROSANNE
[2019-10-27] MEDS ORDERED: LEVOTHYROXINE SODIUM 50 MCG TABLET PO SCH (06:30)
[2019-10-27 07:17] LABS: Appearance Urine Slightly Cloudy (Clear); Bilirubin Urine Negative (Negative); Blood Urine 2+ (Negative); Color Urine Yellow; Glucose Urine UA Negative (Negative); Ketones Urine 2+ (Negative); Leukocyte Esterase Urine Negative (Negative); Nitrite Urine Positive (Negative); Urobilinogen Urine Negative (Negative); pH Urine 8.5 (4.5-7.5)
[2019-10-27 07:18] LABS: Protein Urine 1+ (Negative)
[2019-10-27 07:22] LABS: Sulfosalicylic Acid Urine Positive (Negative)
[2019-10-27 07:46] LABS: RBC Urine >30 /hpf (0-4)
[2019-10-27 07:48] LABS: Bacteria Urine Negative (Negative); Triple Phosphate Crystal Urine Present (None Prsent)
[2019-10-27] MEDS: ASPIRIN 81 MG ECTAB PO SCH (08:10)
[2019-10-27] MEDS: METOPROLOL TARTRATE 25 MG TAB PO SCH ×2 (08:10→20:44)
[2019-10-27] MEDS: NYSTATIN POWDER 15GM BTL EXT SCH ×2 (08:10→20:44)
[2019-10-27] MEDS: BACLOFEN 10 MG TAB PO SCH ×4 (08:11→20:44)
[2019-10-27] MEDS: CALCIUM 600MG + VIT D 400 IU TAB PO SCH (08:11)
--- NOTE | 2019-10-27 08:58 | Hospitalist Progress Note ---
Date of Service October 27, 2019 Assessment & Plan (1) AMS (altered mental status): from possible seizure -patient presented to the ED on 10/26/2019 brought in by EMS. as per review of the notes, that around 8:30 PM on 10/26/2019, patient was witnessed by family to have brief episode of 1 to 2 minutes of stiffness, seemed like seizure kind of episode, after that she rolled her eyes and she was unresponsive for some time and when woke up she was almost speaking gibberish for about 20 minutes and slowly improved. -patient was loaded with Keppra in the ED -awaiting EEG results and neurology consults, IV Ativan p.r.n. for breakthrough seizures, on telemetry -check prolactin, check CK, check lactic acid chronic atrial fibrillation -on metoprolol -not on systemic anticoagulation because of bleeding risks as per admission note Aspiration pneumonitis on chest x-ray. -The patient is on regular diet at home. She has Multiple Sclerosis (MS), she is mostly bedbound and because of position sometimes she may choke as per son. She has multiple drug allergies, started start on IV ertapenem -n.p.o. except meds and consult speech therapy Multiple sclerosis functional quadriplegia secondary to multiple sclerosis -bedbound. Chronic sacral decubitus ulcer stage II -on Levaquin as outpatient , will continue as IV Levaquin -consult wound care Chronic pain disorder. Continue with home pain medications. Urinary retention -on Alanis catheter. Hypothyroidism -on Synthroid. Hyponatremia -admission serum sodium is 130 -given IV fluids, trend serum sodium History of endocarditis in the past DVT Prophylaxis: SCDS Full Code Admission and Anticipated Discharge Date Admission Date: October 27, 2019 Subjective Patient seen and examined after cleaning by nurses. As per nurses patient was able to take her pills today. But reported to them that she felt very sleepy. Nurses report that patient can make some movements of the left upper extremity. The right upper extremity is contracted. The patient cannot move her lower extremities. On my exam, patient was arousable and able to open her eyes and say a few worlds but then kept going back to sleep. Review of Systems Review of Systems: Unobtainable due to cognitive status Physical Exam Constitutional: + frail appearing Eyes: PERRL, conjunctivae normal, anicteric sclerae ENMT: dry oral mucosa Neck: normal visual inspection Respiratory: normal respiratory effort Cardiovascular: Rate/Rhythm: regular rate and + irregularly irregular Gastrointestinal (Abdomen): normal bowel sounds, soft, nontender, no hepatosplenomegaly Neurologic: Nurses report that patient can make some movements of the left upper extremity. The right upper extremity is contracted. The patient cannot move her lower extremities. Results & Data ([facility]) Vital Signs (Past 12 Hours) Vital Signs Temp Pulse Pulse Resp BP BP BP 10/27/19 08:06 37.1 C 78 16 144/85 H 10/27/19 08:04 37.1 C 78 16 144/85 H 10/27/19 04:00 36.7 C 75 18 133/78 10/27/19 02:48 77 10/27/19 01:36 37.2 C 80 20 171/98 H 10/27/19 00:36 73 23 153/103 H 10/26/19 23:01 93 H 15 10/26/19 23:00 90 21 175/127 H 10/26/19 22:52 84 16 171/110 H 10/26/19 22:00 86 10/26/19 21:56 92 H 10/26/19 21:36 36.4 C L 96 H 23 169/111 H Pulse Ox Pulse Ox 10/27/19 08:06 96 10/27/19 08:04 96 10/27/19 04:00 98 10/27/19 02:48 10/27/19 01:36 95 95 10/27/19 00:36 96 10/26/19 23:01 96 10/26/19 23:00 96 10/26/19 22:52 10/26/19 22:00 93 10/26/19 21:56 93 10/26/19 21:36 93 (1) AMS (altered mental status) Altered mental status type: unspecified Qualified Code(s): R41.82 - Altered mental status, unspecified
[2019-10-27] MEDS ORDERED: ACETAMINOPHEN 1,000 MG/100 ML VIAL IV PRN (09:08)
[2019-10-27] MEDS ORDERED: D5W AND 1/2NSS 1,000 ML IV SCH (09:30)
[2019-10-27] MEDS: LEVOTHYROXINE SODIUM 25 MCG in SYRINGE 0 ML IV SCH (10:06)
[2019-10-27 10:15] LABS: Albumin Level 2.7 gm/dl (3.4-5.0); BUN Creatinine Ratio 50.4 (10-20); Calcium 8.1 mg/dl (8.5-10.1); Creatinine Clr Calc Pharmacy 137.1 ml/min; Est GFR (African American) 132.1; Potassium 3.4 mmol/L (3.5-5.1)
[2019-10-27 10:23] LABS: Albumin Globulin Ratio 0.8 (0.9-2); Globulin 3.6 gm/dl (2.5-4.0); Total Protein 6.3 gm/dl (6.4-8.2)
--- NOTE | 2019-10-27 10:27 | Electroencephalogram ---
EEG Procedure Note Date of Service October 27, 2019 Start / End Times Start Time: 09:10 End Time: 09:[address] Banks History A 84 year old woman with MS admitted for episode of unresponsiveness. EEG performed for evaluation of epileptiform activity. Home Medication List Home Medications Medication Instructions Recorded Confirmed Type amitriptyline 20 mg PO HS 07/30/18 10/26/19 History aspirin 81 mg PO DAILY 07/30/18 10/26/19 History baclofen 20 mg PO QID 07/30/18 10/26/19 History levothyroxine 50 mcg PO DAILY 07/30/18 10/26/19 History metoprolol tartrate 12.5 mg PO BID 07/30/18 10/26/19 History polyethylene glycol 3350 [Miralax] 17 g PO DAILY PRN 07/30/18 10/26/19 History lorazepam [Ativan] 0.5 mg PO BID PRN 07/31/18 10/26/19 History lorazepam [Ativan] 1 mg PO HS 07/31/18 10/26/19 History levofloxacin 500 mg tablet 500 mg PO DAILY #30 tab 08/15/19 10/26/19 Rx calcium carbonate-vitamin D3 1 tab PO DAILY 10/26/19 10/26/19 History [Caltrate with Vitamin D3] furosemide 40 mg PO DAILY PRN 10/26/19 10/26/19 History hydromorphone [Dilaudid] 4 mg PO Q3H PRN 10/26/19 10/26/19 History nystatin 1 applic TOPICAL BID 10/26/19 10/26/19 History Inpatient Medication List Aspirin (Ecotrin Ectab) 81 mg PO DAILY [facility]STOF[facility] Stop: 11/26/19 08:59 Last Admin: 10/27/19 08:10 Dose: 81 mg Documented by: [id number] Baclofen (Lioresal) 20 mg PO QID [facility] Stop: 11/26/19 08:59 Last Admin: 10/27/19 08:11 Dose: 20 mg Documented by: [id number] Ertapenem 1,000 mg/ Sodium (Chloride) 60 mls @ 100 mls/hr IV Q24H [facility] Stop: 11/03/19 02:59 Last Infusion: 10/27/19 03:14 Dose: 0 mls/hr Documented by: [id number] Admin: 03/09/20 02:39 Dose: 100 mls/hr Documented by: [id number] Levothyroxine Sodium 25 mcg/ (Syringe) 1.25 mls @ 2 mls/min IV DAILY@0900 [facility] Stop: 11/26/19 08:59 Last Admin: 10/27/19 10:06 Dose: 2 mls/min Documented by: [id number] Dextrose/Sodium Chloride (D5w And 1/2nss) 1,000 mls @ 60 mls/hr IV .[id number] [facility] Stop: 11/26/19 09:29 Last Admin: 10/27/19 10:07 Dose: 60 mls/hr Documented by: [id number] Metoprolol Tartrate (Lopressor) 12.5 mg PO BID [facility]STOFER Stop: 11/26/19 08:59 Last Admin: 10/27/19 08:10 Dose: 12.5 mg Documented by: [id number] Multivitamins/Minerals (Caltrate Plus) 1 tab PO DAILY [facility]OF[facility] Stop: 11/26/19 08:59 Last Admin: 10/27/19 08:11 Dose: 1 tab Documented by: [id number] Nystatin (Mycostatin) 1 appln EXT BID [facility]OF[facility] Stop: 11/26/19 08:59 Last Admin: 10/27/19 08:10 Dose: 1 appln Documented by: [id number] Discontinued Medications Sodium Chloride (Nss 1000ml) 1,000 mls @ 125 mls/hr IV .Q8H [facility] Stop: 11/25/19 21:59 Last Infusion: 10/27/19 01:40 Dose: 0 mls/hr Documented by: [id number] Admin: 10/26/19 22:56 Dose: 125 mls/hr Documented by: [id number] Metronidazole (Flagyl) 500 mg in 100 mls @ 100 mls/hr IV NOW STA Stop: 10/27/19 00:16 Last Infusion: 10/27/19 01:39 Dose: 0 mls/hr Documented by: [id number] Admin: 10/27/19 00:26 Dose: 100 mls/hr Documented by: [id number] Levofloxacin/Dextrose (Levaquin/D5w) 750 mg in 150 mls @ 100 mls/hr IV Q24H [facility] Stop: 11/02/19 23:29 Last Infusion: 10/27/19 00:56 Dose: 0 mls/hr Documented by: [id number] Admin: 10/26/19 23:26 Dose: 100 mls/hr Documented by: [id number] Levetiracetam 1,000 mg/ (Dextrose) 110 mls @ 440 mls/hr IV NOW STA Stop: 10/27/19 00:01 Last Infusion: 10/27/19 00:24 Dose: 0 mls/hr Documented by: [id number] Admin: 10/27/19 00:09 Dose: 440 mls/hr Documented by: [id number] Sodium Chloride (Nss 1000ml) 1,000 mls @ 100 mls/hr IV .Q10H [facility]STOF[facility] Stop: 11/26/19 01:35 Last Infusion: 10/27/19 10:08 Dose: 0 mls/hr Documented by: [id number] Admin: 10/27/19 08:08 Dose: 100 mls/hr Documented by: [id number] Infusion: 10/27/19 08:08 Dose: 100 mls/hr Documented by: [id number] Admin: 10/27/19 01:40 Dose: 100 mls/hr Documented by: [id number] Levothyroxine Sodium (Synthroid) 50 mcg PO DAILYBB [facility] Stop: 11/26/19 06:29 Last Admin: 10/27/19 05:40 Dose: Not Given Documented by: [id number] Description This is a 21 electrode EEG with a single channel dedicated to limited EKG. The electrodes were placed in accordance with the International 10-20 system. REPORT: At the onset of the EEG the patient is in an altered mental state. There is no posterior dominant rhythm. There is no anterior to posterior gradient. Instead the background is symmetric and mainly consist of polymorphic 2-3 delta activity with intermixed faster frequencies. There is intermittent electrode artifact and movement artifact noted. Photic stimulation does no elicit any add itional abnormalities. IMPRESSION: This is an abnormal EEG in an patient with altered mentation due to moderate to severe background slowing suggestive of a nonspecific encephalopathy. No epileptiform discharges are recorded.
--- NOTE | 2019-10-27 13:55 | Neurology Consultation ---
Date of Consultation October 27, 2019 Assessment & Plan (1) Seizure: 1. unclear if seizure event 2. EEG - no seizure evidence capture does not r/o seizure 3. keppa loaded in ED and Ativan given would not continue Keppra due to anger issues- will not recommend AED at this time monitor for any further seizures 4. psychiatry regarding hallucination-may sundown tonight 5. CT head- no acute findings 6. possible pneumonia on CXR 7. may need formal swallowing to evaluate for diet revision- education on positioning during feeding 8. chronic Alanis- treat UTI to culture may be chronic infection (2) AMS (altered mental status): (3) Permanent atrial fibrillation: (4) Multiple sclerosis: 1. no treatment for this stage of MS Supervising Physician Co-Signing Physician Notes Patient admitted for episode of altered mentation. Urine cultures pending. Routine EEG reviewed and consistent with non specific encephalopathy. No epileptiform discharges. Would monitor for now. Would not start AED at this time. History of Present Illness Reason for Consultation: seizure Requesting Physician: Sergei Green MD Attending Physician: Sergei Green MD History of Present Illness Bren is a 84 year old female with PMH- hypothyroidism, AF, mitral valve regurgitation, urinary retention, on chronic Alanis catheter, MS with functional quadriplegia secondary to multiple sclerosis, chronic pain disorder, compression fracture of the spine, lower extremity edema, osteoporosis, anemia. She lives with her son and is bedbound. She had a seizure-like episode around 8:30 p.m. brief episode of 1-2 minutes of stiffness, seemed like seizure kind of episode, after that she rolled her eyes and she was unresponsive for some time and when woke up she was almost speaking gibberish for about 20 minutes and slowly improved. She was loaded with Keppra. She is on a regular diet but may choke on the food because she is always lying in bed. Sometimes on and off she gets vis ual hallucinations and had one that she was very agitated and stiffened and passed out for several seconds and then was very confused. denies CP, SOB, abdominal pain, biting tongue, N, V. Allergies Allergy/AdvReac Type Severity Reaction Status Date / Time nitrofurantoin Allergy Severe FEVER Verified 08/26/19 11:30 ceftriaxone Allergy Mild Unknown Verified 08/26/19 11:30 Penicillins Allergy Mild Unknown Verified 08/26/19 11:30 sulbactam Allergy Mild Unknown Verified 08/26/19 11:30 Bactrim Allergy Unknown RASH/HIVES Verified 01/15/18 17:49 clavulanic acid Allergy Unknown "BETA-LACTAMASE Verified 08/26/19 11:30 INHIBITORS" ALLERGY clindamycin Allergy Unknown RASH Verified 08/26/19 11:30 rifampin Allergy Unknown POSSIBLE Verified 08/26/19 11:30 DRUG FEVER sulfamethoxazole Allergy Unknown RASH/HIVES Verified 08/26/19 11:30 tazobactam Allergy Unknown "BETA-LACTAMASE Verified 08/26/19 11:30 INHIBITORS" ALLERGY trimethoprim Allergy Unknown RASH/HIVES Verified 08/26/19 11:30 Home Medications Home Medications Medication Instructions Recorded Confirmed Type amitriptyline 20 mg PO HS 07/30/18 10/26/19 History aspirin 81 mg PO DAILY 07/30/18 10/26/19 History baclofen 20 mg PO QID 07/30/18 10/26/19 History levothyroxine 50 mcg PO DAILY 07/30/18 10/26/19 History metoprolol tartrate 12.5 mg PO BID 07/30/18 10/26/19 History polyethylene glycol 3350 [Miralax] 17 g PO DAILY PRN 07/30/18 10/26/19 History lorazepam [Ativan] 0.5 mg PO BID PRN 07/31/18 10/26/19 History lorazepam [Ativan] 1 mg PO HS 07/31/18 10/26/19 History levofloxacin 500 mg tablet 500 mg PO DAILY #30 tab 08/15/19 10/26/19 Rx calcium carbonate-vitamin D3 1 tab PO DAILY 10/26/19 10/26/19 History [Caltrate with Vitamin D3] furosemide 40 mg PO DAILY PRN 10/26/19 10/26/19 History hydromorphone [Dilaudid] 4 mg PO Q3H PRN 10/26/19 10/26/19 History nystatin 1 applic TOPICAL BID 10/26/19 10/26/19 History Patient History Medical History Acute CVA (cerebrovascular accident) (Acute) GERD (gastroesophageal reflux disease) (Chronic) History of hepatitis (Chronic) Mitral regurgitation (Chronic) Multiple sclerosis (Chronic) Osteomyelitis (Acute) Permanent atrial fibrillation Sacral decubitus ulcer, stage III (Acute) Surgical History H/O cystoscopy (Chronic) S/P hysterectomy (Resolved Unknown) S/P tonsillectomy (Resolved Unknown) Family History Other Family history non-contributory Social History Preferred Language: Greenlandic Communication Ability: Effective Residential Sales Executive Required: No Beliefs That Will Affect Care: None marital status: / Current Living Situation: Family Current Living Situation Comment: son randell is primary caregiver, HH 2x/wk for bathing, RN 1x/wk well visits Other Information That Helps Us Care for You: No Feels Safe at Home: Yes Safety Concerns: Feels Safe At This Time Smoking Status: Former smoker Tobacco Type: cigarettes ; Smoking End Date: ; Hx Alcohol Use: No Hx Substance Use: No Physical Exam Physical Exam: Physical Exam: Constitutional: appearance ill appearing, frail, does not know why she is here Ears, Nose, Mouth and Throat: mucous membranes moist, no injection and skin normal, eyes normal Cardiovascular: irregular Respiratory: course breath sounds Musculoskeletal: no peripheral edema and good distal pulses Skin: no stigmata of neurocutaneous disease noted and normal and intact Eyes: extraocular muscles intact (EOMI) and pupils equal, round and reactive to light (PERRL) NEUROLOGIC EXAMINATION: Mental status: Alert and interactive Oriented to person Speech fluent with no evidence of aphasia Cranial Nerves smile eye brow raise symmetric Reflexes: Deep tendon reflexes decreased through out Sensory: light or cool touch Gait/Stance: Posture lying in bed Motor: unable to assess Strength: hand cloth doffer biceps triceps right-severe contracture left 4/5, hip flex left 4/5, right contracture Results & Data Vital Signs (Past 12 Hours) Vital Signs Temp Pulse Pulse Resp BP BP Pulse Ox 10/27/19 12:22 73 10/27/19 11:37 36.7 C 61 16 113/74 99 10/27/19 08:06 37.1 C 78 16 144/85 H 96 10/27/19 08:04 37.1 C 78 16 144/85 H 96 10/27/19 04:00 36.7 C 75 18 133/78 98 10/27/19 02:48 77 Laboratory Results Abnormal lab results 10/26/19 10/26/19 10/26/19 Range/Units 22:11 22:38 22:38 RDW Std Deviation 48.9 H (36.4-46.3) fL RDW Coeff of Arsenio 15.4 H (11.5-14.5) % MPV 10.7 H (7.4-10.4) fL Lymph # (Auto) 0.58 L (1.2-3.4) K/uL [place] # (Auto) 0.66 H (0.11-0.59) K/uL Sodium 130 L (136-145) mmol/L Potassium (3.5-5.1) mmol/L Chloride 95 L (98-107) mmol/L Creatinine 0.45 L (0.6-1.2) mg/dl BUN/Creatinine Ratio 36.7 H (10-20) Glucose 111 H (70-99) mg/dl POC Glucose 101 H (70-99) mg/dl Calcium (8.5-10.1) mg/dl Direct Bilirubin 0.3 H (0-0.2) mg/dl ALT 11 L (12-78) U/L Alkaline Phosphatase 130 H (45-117) U/L Total Protein (6.4-8.2) gm/dl Albumin (3.4-5.0) gm/dl Albumin/Globulin Ratio (0.9-2) Lipase 36 L (73-393) U/L Urine pH (4.5-7.5) Urine Protein (Negative) Urine Ketones (Negative) Urine Blood (Negative) Urine Nitrite (Negative) Urine RBC (0-4) /hpf Urine WBC (0-5) /hpf Ur Epithelial Cells (0-5) /lpf Triple Phos Crystals (None Prsent) Urine Yeast (None Prsent) 10/27/19 10/27/19 Range/Units 06:10 09:34 RDW Std Deviation (36.4-46.3) fL RDW Coeff of Arsenio (11.5-14.5) % MPV (7.4-10.4) fL Lymph # (Auto) (1.2-3.4) K/uL [place] # (Auto) (0.11-0.59) K/uL Sodium 131 L (136-145) mmol/L Potassium 3.4 L (3.5-5.1) mmol/L Chloride (98-107) mmol/L Creatinine 0.24 L (0.6-1.2) mg/dl BUN/Creatinine Ratio 50.4 H (10-20) Glucose (70-99) mg/dl POC Glucose (70-99) mg/dl Calcium 8.1 L (8.5-10.1) mg/dl Direct Bilirubin (0-0.2) mg/dl ALT 9 L (12-78) U/L Alkaline Phosphatase (45-117) U/L Total Protein 6.3 L D (6.4-8.2) gm/dl Albumin 2.7 L (3.4-5.0) gm/dl Albumin/Globulin Ratio 0.8 L (0.9-2) Lipase (73-393) U/L Urine pH 8.5 H (4.5-7.5) Urine Protein 1+ H (Negative) Urine Ketones 2+ H (Negative) Urine Blood 2+ H (Negative) Urine Nitrite Positive A (Negative) Urine RBC >30 H (0-4) /hpf Urine WBC 10-30 H (0-5) /hpf Ur Epithelial Cells 5-10 H (0-5) /lpf Triple Phos Crystals Present A (None Prsent) Urine Yeast Budding w/ Hyphae A (None Prsent) Diagnostic Findings CXR-Cardiomegaly without radiographic evidence of congestive failure. There is patchy airspace consolidation in the right upper lobe with dense airspace cons olidation at the right lung base. Correlate clinically for evidence of pneumonia/aspiration pneumonitis. Radiographic follow-up to resolution is recommended. CT head-There is no hemorrhage, mass effect, or evidence of acute territorial ischemia by CT criteria. EEG-This is an abnormal EEG in an patient with altered mentation due to moderate to severe background slowing suggestive of a nonspecific encephalopathy. No epileptiform discharges are recorded. (1) AMS (altered mental status) Altered mental status type: unspecified Qualified Code(s): R41.82 - Altered mental status, unspecified
[2019-10-27] MEDS ORDERED: SODIUM CHLORIDE 0.9% 1000ML 500 ML IV ONE (15:39)
[2019-10-27] MEDS: POTASSIUM CHLORIDE / WTR 10 MEQ/100 ML PLCT IV SCH ×2 (17:39→18:30)
[2019-10-27] MEDS: D5W AND 1/2NSS 1,000 ML IV SCH (18:27)
[2019-10-27] MEDS ORDERED: PROMETHAZINE HCL 6.25 MG in SODIUM CHLORIDE 0.9% 50 ML IV PRN (18:38)
[2019-10-27] MEDS: AMITRIPTYLINE HCL 10 MG TAB PO SCH (20:44)
[2019-10-27] MEDS: LORazepam 1 MG TAB PO SCH (20:44)
[2019-10-27] MEDS ORDERED: levoFLOXacin 500 MG TAB PO SCH ×2 (21:00→22:00)
[2019-10-28] MEDS ORDERED: ERTAPENEM SODIUM 500 MG in SODIUM CHLORIDE 0.9% 50 ML IV SCH (03:00)
[2019-10-28 07:16] LABS: Eosinophils # (auto) 0.03 K/uL (0-0.5); Eosinophils % (auto) 0.6 %; Hematocrit (blood only) 36.6 % (37-47); Hemoglobin 12.3 g/dL (12.0-16.0); Immature Granulocytes # (auto) 0.01 K/uL (0.00-0.02); Immature Granulocytes % (auto) 0.2 %; Lymphocytes # (auto) 0.61 K/uL (1.2-3.4); Lymphocytes % (auto) 12.4 %; Mean Corpuscular Hemoglobin 28.5 pg (25-34); Mean Corpuscular Hgb Conc 33.6 g/dL (32-36); Mean Corpuscular Volume 84.7 fL (80-100); Mean Platelet Volume 10.4 fL (7.4-10.4); Monocytes # (auto) 0.79 K/uL (0.11-0.59); Monocytes % (auto) 16.1 %; Neutrophils # (auto) 3.48 K/uL (1.4-6.5); Neutrophils % (auto) 70.7 %; Platelet Count 163 K/uL (130-400); RDW Coefficient of Variation 15.5 % (11.5-14.5); Red Blood Count 4.32 M/uL (4.2-5.4); White Blood Count 4.92 K/uL (4.8-10.8)
[2019-10-28] MEDS: D5W AND 1/2NSS 1,000 ML IV SCH (07:57)
[2019-10-28 07:58] LABS: Albumin Level 2.9 gm/dl (3.4-5.0); BUN Creatinine Ratio 33.2 (10-20); Calcium 8.4 mg/dl (8.5-10.1); Est GFR (African American) 124.1; Est GFR (Non-African American) 107.1; Magnesium 1.6 mg/dl (1.8-2.4); Potassium 3.5 mmol/L (3.5-5.1)
[2019-10-28] MEDS: NYSTATIN POWDER 15GM BTL EXT SCH ×2 (07:58→21:06)
[2019-10-28] MEDS: METOPROLOL TARTRATE 25 MG TAB PO SCH ×2 (07:59→20:58)
[2019-10-28] MEDS: ASPIRIN 81 MG ECTAB PO SCH (07:59)
[2019-10-28] MEDS: BACLOFEN 10 MG TAB PO SCH ×4 (07:59→20:57)
[2019-10-28] MEDS: CALCIUM 600MG + VIT D 400 IU TAB PO SCH (08:00)
[2019-10-28 08:01] LABS: Albumin Globulin Ratio 0.8 (0.9-2); Bilirubin,Total 0.9 mg/dl (0.2-1); Globulin 3.6 gm/dl (2.5-4.0); Total Protein 6.5 gm/dl (6.4-8.2)
[2019-10-28] MEDS: LEVOTHYROXINE SODIUM 25 MCG in SYRINGE 0 ML IV SCH (08:58)
--- NOTE | 2019-10-28 12:24 | Hospitalist Progress Note ---
Date of Service October 28, 2019 Assessment & Plan (1) AMS (altered mental status): from possible seizure -patient presented to the ED on 10/26/2019 brought in by EMS. as per review of the notes, that around 8:30 PM on 10/26/2019, patient was witnessed by family to have brief episode of 1 to 2 minutes of stiffness, seemed like seizure kind of episode, after that she rolled her eyes and she was unresponsive for some time and when woke up she was almost speaking gibberish for about 20 minutes and slowly improved. -patient was loaded with Keppra in the ED -normal prolactin, normal CK, normal, lactic acid. EEG completed (abnormal EEG in an patient with altered mentation due to moderate to severe background slowing suggestive of a nonspecific encephalopathy. No epileptiform discharges are recorded) but no further anti-epileptics as per neurology assessment on 10/27/2019 -10/28/2019: Patient's mental status improved significant when seen again by yesterday evening and able to eat the meals. She speaks softly this AM. she denies pain or problems with breathing. no distress. -awaiting further neurology recommendations but if no further recommendations for anti-epileptics and no obvious no infection other than the chronic sacral decubitus ulcer then consideration can be given for discharge to home under care of her son Mo ([phone]) on 10/29/2019 upcoming appointments -11/03/2019 12:00 PM Provider Danny Grier MD Department General Internal Medicine [facility] -11/10/2019 11:20 AM Provider Sandy Laurent PA-C Department Neurology [facility] -11/22/2019 1:20 PM Provider Lee Keller DO Department Family Medicine [facility] chronic atrial fibrillation -on metoprolol -not on systemic anticoagulation because of bleeding risks as per admission note possible Aspiration pneumonitis on chest x-ray. -The patient is on regular diet at home. She has Multiple Sclerosis (MS), she is mostly bedbound and because of position sometimes she may choke as per son. She has multiple drug allergies, -was empirically started on IV ertapenem by admitting physician -day time hospitalist reviewed the admission Chest X ray which was poorly taken because of patient's body positioning and difficult to see the radiology impression of "patchy airspace consolidation in the right upper lobe with dense airspace consolidation at the right lung base" -clinically, patient breathing on room air and not febrile. -admission blood culture with no growth to date. urine culture "Three types of organisms present, all high counts probable skin delmar. 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 Chronic sacral decubitus ulcer stage II -on Levaquin as outpatient , will continue as IV Levaquin -wound care nurse assessed on 10/28/2019 Chronic pain disorder. Continue with home pain medications. Urinary retention -on Alanis catheter. Hypothyroidism -on Synthroid. 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 She speaks softly this AM. she denies pain or problems with breathing. no distress. wound care nurse assessed the sacral wound Review of Systems Review of Systems: All systems reviewed & are unremarkable except as noted in HPI & below Physical Exam Constitutional: + frail appearing Eyes: PERRL, conjunctivae normal, anicteric sclerae Neck: normal visual inspection Respiratory: normal respiratory effort Cardiovascular: Rate/Rhythm: regular rate and + irregularly irregular Gastrointestinal (Abdomen): normal bowel sounds, soft, nontender, no hepatosplenomegaly Results & Data ([facility]) Vital Signs (Past 12 Hours) Vital Signs Temp Pulse Pulse Resp BP Pulse Ox 10/28/19 12:19 36.4 C L 76 23 153/107 H 92 10/28/19 07:30 36.7 C 78 32 H 135/99 92 10/28/19 03:19 36.6 C 72 24 146/73 H 95 10/28/19 03:16 80 (1) AMS (altered mental status) Altered mental status type: unspecified Qualified Code(s): R41.82 - Altered mental status, unspecified
--- NOTE | 2019-10-28 13:00 | XRay Report ---
XR chest 1V portable CLINICAL HISTORY: follow up lung infiltrates pneumonia COMPARISON STUDY: 10/26/2019 extent FINDINGS: Mild stable cardiomegaly. Improved aeration right base. Interval development of a focus of consolidation left lung lung base. Slightly progressive infiltrati ve change right apex. Slightly progressive pulmonary vascular congestion. IMPRESSION: 1. 1. Variable appearance of the chest with improved aeration right lung base. 2. Slightly progressive consolidative process left base with infiltrative changes right apex slightly progressive. 3. Pulmonary vascular congestion slightly progressive ACT 112: Negative or not required by law. The above report was generated using voice recognition software. It may contain grammatical, syntax or spelling errors. Electronically signed by: Chadd Moreira M.D. 10/28/2019 12:58 PM
[2019-10-28] MEDS: MAGNESIUM SULFATE / D5W 1 GM/100 ML BAG IV SCH ×2 (13:09→14:25)
[2019-10-28] MEDS: MAGNESIUM OXIDE 400 MG TAB PO SCH (13:22)
[2019-10-28] MEDS: HYDROmorphone HCL 2 MG TAB PO PRN ×2 (15:49→20:55)
[2019-10-28] MEDS ORDERED: DiphenhydrAMINE HCL 50 MG/ML VIAL IV STA (16:36)
[2019-10-28] MEDS: AMITRIPTYLINE HCL 10 MG TAB PO SCH (20:57)
[2019-10-28] MEDS ORDERED: levoFLOXacin 500 MG TAB PO SCH (21:00)
[2019-10-28] MEDS: LORazepam 1 MG TAB PO SCH (21:06)
[2019-10-28] MEDS ORDERED: LEVOFLOXACIN/D5W 750 MG/150 ML BAG IV SCH ×2 (22:00)
[2019-10-29] MEDS ORDERED: ERTAPENEM SODIUM 1,000 MG in SODIUM CHLORIDE 0.9% 50 ML IV SCH (03:00)
[2019-10-29] MEDS ORDERED: LEVOTHYROXINE SODIUM 50 MCG TABLET PO SCH (06:30)
[2019-10-29 06:47] LABS: Basophils # (auto) 0.01 K/uL (0-0.2); Basophils % (auto) 0.2 %; Eosinophils # (auto) 0.13 K/uL (0-0.5); Eosinophils % (auto) 2.5 %; Hematocrit (blood only) 38.2 % (37-47); Hemoglobin 12.9 g/dL (12.0-16.0); Immature Granulocytes # (auto) 0.01 K/uL (0.00-0.02); Immature Granulocytes % (auto) 0.2 %; Lymphocytes # (auto) 0.91 K/uL (1.2-3.4); Lymphocytes % (auto) 17.8 %; Mean Corpuscular Hemoglobin 28.4 pg (25-34); Mean Corpuscular Hgb Conc 33.8 g/dL (32-36); Mean Platelet Volume 11.2 fL (7.4-10.4); Monocytes # (auto) 0.92 K/uL (0.11-0.59); Neutrophils # (auto) 3.13 K/uL (1.4-6.5); Neutrophils % (auto) 61.3 %; Platelet Count 172 K/uL (130-400); RDW Coefficient of Variation 15.7 % (11.5-14.5); RDW Standard Deviation 48.2 fL (36.4-46.3); Red Blood Count 4.55 M/uL (4.2-5.4); White Blood Count 5.11 K/uL (4.8-10.8)
[2019-10-29 07:12] LABS: Albumin Level 2.8 gm/dl (3.4-5.0); BUN Creatinine Ratio 33.2 (10-20); Calcium 8.4 mg/dl (8.5-10.1); Est GFR (African American) 125.5; Est GFR (Non-African American) 108.3; Magnesium 2.1 mg/dl (1.8-2.4); Potassium 3.8 mmol/L (3.5-5.1)
[2019-10-29 07:15] LABS: Albumin Globulin Ratio 0.7 (0.9-2); Bilirubin,Total 0.7 mg/dl (0.2-1); Globulin 3.8 gm/dl (2.5-4.0); Total Protein 6.6 gm/dl (6.4-8.2)
[2019-10-29] MEDS: METOPROLOL TARTRATE 25 MG TAB PO SCH (08:56)
[2019-10-29] MEDS: CALCIUM 600MG + VIT D 400 IU TAB PO SCH (08:57)
[2019-10-29] MEDS: ASPIRIN 81 MG ECTAB PO SCH (08:57)
[2019-10-29] MEDS: BACLOFEN 10 MG TAB PO SCH ×2 (08:57→12:21)
[2019-10-29] MEDS: MAGNESIUM OXIDE 400 MG TAB PO SCH (08:57)
[2019-10-29] MEDS: NYSTATIN POWDER 15GM BTL EXT SCH (08:58)
--- NOTE | 2019-10-29 15:09 | Hospitalist Progress Note ---
Date of Service October 29, 2019 Assessment & Plan (1) AMS (altered mental status): from possible seizure per Dr. Sergei Green's notes (previous hospitalist): -patient presented to the ED on 10/26/2019 brought in by EMS. as per review of the notes, that around 8:30 PM on 10/26/2019, patient was witnessed by family to have brief episode of 1 to 2 minutes of stiffness, seemed like seizure kind of episode, after that she rolled her eyes and she was unresponsive for some time and when woke up she was almost speaking gibberish for about 20 minutes and slowly improved. -patient was loaded with Keppra in the ED -normal prolactin, normal CK, normal, lactic acid. EEG completed (abnormal EEG in an patient with altered mentation due to moderate to severe background slowing suggestive of a nonspecific encephalopathy. No epileptiform discharges are recorded) but no further anti-epileptics as per neurology assessment on 10/27/2019 -10/28/2019: Patient's mental status improved significant when seen again by yesterday evening and able to eat the meals. She speaks softly this AM. she denies pain or problems with breathing. no distress. -awaiting further neurology recommendations but if no further recommendations for anti-epileptics and no obvious no infection other than the chronic sacral decubitus ulcer then consideration can be given for discharge to home under care of her son Mo ([phone]) on 10/29/2019 10/29/19 - remains stable no recurrence of seizure like activity - d/c home upcoming appointments -11/03/2019 12:00 PM Provider Danny Grier MD Department General Internal Medicine [facility] -11/10/2019 11:20 AM Provider Sandy Laurent PA-C Department Neurology [facility] -11/22/2019 1:20 PM Provider Lee Keller DO Department Family Medicine [facility] chronic atrial fibrillation -on metoprolol -not on systemic anticoagulation because of bleeding risks as per admission note possible Aspiration Pneumonitis on chest x-ray. per Dr. Sergei Green's notes (previous hospitalist): -The patient is on regular diet at home. She has Multiple Sclerosis (MS), she is mostly bedbound and because of position sometimes she may choke as per son. She has multiple drug allergies, -was empirically started on IV ertapenem by admitting physician -day time hospitalist reviewed the admission Chest X ray which was poorly taken because of patient's body positioning and difficult to see the radiology impression of "patchy airspace consolidation in the right upper lobe with dense airspace consolidation at the right lung base" -clinically, patient breathing on room air and not febrile. -admission blood culture with no growth to date. urine culture "Three types of organisms present, all high counts probable skin delmar. 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 Chronic sacral decubitus ulcer stage II -on Levaquin as outpatient -wound care nurse assessed on 10/28/2019 Chronic pain disorder - Continue with home pain medications. Urinary retention -on Alanis catheter. Hypothyroidism -on Synthroid. 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 DVT Prophylaxis: SCDS Full Code patient's son Mo ([phone]) Disposition d/c home ff up with PCP in 1 week as per [place] instrucitons Admission and Anticipated Discharge Date Admission Date: October 27, 2019 Subjective ff up for possible seizure episode, pneumonia seen resting in bed, alert, comfortable, in good spirits states she feels much better overall denies shortness of breath, cough, fever/chills no headache, dizziness, new neuro symptoms no abdominal pain, nausea no other symptoms states she is ready and is agreeable for discharge today Review of Systems Review of Systems: All systems reviewed & are unremarkable except as noted in HPI & below Physical Exam Physical Exam: General- oriented x 3, not in distress, speaks in sentences with no effort or accessory muscle use Eyes- anicteric Neck- no JVD Lungs- clear breath sounds bilaterally, no rales/wheezes Heart- normal rate, regular rhythm; no murmurs Abdomen- normal bowel sounds, nondistended, soft, nontender Extremities- no pretibial edema, no calf tenderness Neuro- alert, oriented x 3; (+) weakness of all extremities Skin- warm & dry Results & Data ([facility]) Vital Signs (Past 12 Hours) Vital Signs Temp Pulse Pulse Resp BP BP Pulse Ox 10/29/19 11:01 36.5 C 55 L 24 144/83 H 92 10/29/19 07:31 36.3 C L 63 21 156/97 H 94 10/29/19 04:05 36.3 C L 74 20 152/83 H 93 Laboratory Results Laboratory Results - last 24 hr 10/29/19 10/29/19 06:17 06:17 WBC 5.11 RBC 4.55 Hgb 12.9 Hct 38.2 MCV 84.0 MCH 28.4 MCHC 33.8 RDW Std Deviation 48.2 H RDW Coeff of Arsenio 15.7 H Plt Count 172 MPV 11.2 H Immature Gran % (Auto) 0.2 Neut % (Auto) 61.3 Lymph % (Auto) 17.8 Toombs % (Auto) 18.0 Eos % (Auto) 2.5 Baso % (Auto) 0.2 Immature Gran # (Auto) 0.01 Neut # (Auto) 3.13 Lymph # (Auto) 0.91 L Toombs # (Auto) 0.92 H Eos # (Auto) 0.13 Baso # (Auto) 0.01 Sodium 135 L Potassium 3.8 Chloride 104 Carbon Dioxide 26 Anion Gap 5.0 BUN 9 Creatinine 0.28 L Est Cr Clr Drug Dosing 117.0 Est GFR ( Amer) 125.5 Est GFR (Non-Af Amer) 108.3 BUN/Creatinine Ratio 33.2 H Glucose 90 Calcium 8.4 L Magnesium 2.1 Total Bilirubin 0.7 AST 12 L ALT 11 L Alkaline Phosphatase 106 Total Protein 6.6 Albumin 2.8 L Globulin 3.8 Albumin/Globulin Ratio 0.7 L (1) AMS (altered mental status) Altered mental status type: unspecified Qualified Code(s): R41.82 - Altered mental status, unspecified
--- NOTE | 2019-10-29 15:51 | Discharge Summary ---
Date of Service October 29, 2019 Admission HPI Per Admitting Provider CHIEF COMPLAINT: Seizures. HISTORY OF PRESENT ILLNESS: This is an 84-year-old female with past medical history significant for hypothyroidism, atrial fibrillation, mitral valve regurgitation, urinary retention, on chronic Alanis catheter, multiple sclerosis with functional quadriplegia secondary to multiple sclerosis, chronic pain disorder, compression fracture of the spine, lower extremity edema, osteoporosis, anemia. The patient lives with her son, mostly bedbound. Son helps her to go to the bathroom. Presents with seizure-like episode. Last night around 8:30 p.m., she had a brief episode of 1-2 minutes of stiffness, seemed like seizure kind of episode, after that she rolled her eyes and she was unresponsive for some time and when woke up she was almost speaking gibberish for about 20 minutes and slowly improved. Now her mental status seemed to be back to baseline. In the ER, she had no more seizures. In the ER, CT of the head was okay. Labs are all fine. The patient is getting loaded with Keppra and her procalcitonins and lactate levels are okay. On chest x-ray, it looks like aspiration pneumonitis. Son says she is on regular diet. No dysphagia, but because she is always on the bed lying sometimes she may choke on the food. The patient has some chest pain, but more when taking deep breath. Denies any shortness of breath, no cough, no fever, no chills. Has some headache. Sometimes on and off she gets visual hallucinations.Has some pain behind her right ear from her MS. No sore throat. No biting of the tongue or incontinence during the episode. Currently, no nausea. She has chronic abdominal pain. No rash. Currently alert and oriented x2 and hemodynamically stable. Admission Exam Per Admitting Provider PHYSICAL EXAMINATION: GENERAL: The patient is old and frail, not in acute distress. VITAL SIGNS: Temperature 36.4, pulse 93, respiratory rate 15, blood pressure 175/127, oxygen 96% on room air. HEENT: No pallor, no icterus. Pupils equal, round, reactive to light. NECK: No JVD, no neck masses, no carotid bruit. CARDIOVASCULAR: S1, S2 heard, regular rate and rhythm, no murmur, no gallop. RESPIRATORY SYSTEM: Normal AP diameter. No accessory muscle use. No wheezing, no crackles. ABDOMEN: Soft, bowel sounds present, nontender. No distention. CENTRAL NERVOUS SYSTEM: Cranial nerves II-XII grossly intact. Moves extremities. EXTREMITIES: No edema, no erythema. SKIN: Sacral decubitus ulcer stage II present. Principal Diagnosis EPISODE OF SEIZURE LIKE ACTIVITY, POSSIBLE PNEUMONIA Discharge Exam General- oriented x 3, not in distress, speaks in sentences with no effort or accessory muscle use Eyes- anicteric Neck- no JVD Lungs- clear breath sounds bilaterally, no rales/wheezes Heart- normal rate, regular rhythm; no murmurs Abdomen- normal bowel sounds, nondistended, soft, nontender Extremities- no pretibial edema, no calf tenderness Neuro- alert, oriented x 3; (+) weakness of all extremities Skin- warm & dry Discharge Data Allergies Allergy/AdvReac Type Severity Reaction Status Date / Time nitrofurantoin Allergy Severe FEVER Verified 08/26/19 11:30 ceftriaxone Allergy Mild Unknown Verified 08/26/19 11:30 Penicillins Allergy Mild Unknown Verified 08/26/19 11:30 sulbactam Allergy Mild Unknown Verified 08/26/19 11:30 Bactrim Allergy Unknown RASH/HIVES Verified 01/15/18 17:49 clavulanic acid Allergy Unknown "BETA-LACTAMASE Verified 08/26/19 11:30 INHIBITORS" ALLERGY clindamycin Allergy Unknown RASH Verified 08/26/19 11:30 rifampin Allergy Unknown POSSIBLE Verified 08/26/19 11:30 DRUG FEVER sulfamethoxazole Allergy Unknown RASH/HIVES Verified 08/26/19 11:30 tazobactam Allergy Unknown "BETA-LACTAMASE Verified 08/26/19 11:30 INHIBITORS" ALLERGY trimethoprim Allergy Unknown RASH/HIVES Verified 08/26/19 11:30 Consultations 10/26/19 23:10 ED Decision to Admit Stat 10/27/19 01:36 Consult Case Management - Discharge Planning Routine 10/27/19 02:09 Consult Nutrition Routine 10/27/19 08:00 Consult Neurology Routine Ordered Studies 10/26/19 21:48 CT head/brain wo con Stat CLINICAL HISTORY: Seizure. COMPARISON STUDY: CT of the brain dated 07/30/2018. TECHNIQUE: Unenhanced axial CT scan of the brain is performed from the vertex to the skull base. A dose lowering technique was utilized adhering to the principles of ALARA. The examination is modestly degraded by motion artifact. CT DOSE: 537.48 mGy.cm FINDINGS: Brain parenchyma: There are age-related involutional changes noting moderate to advanced subcortical and periventricular microangiopathic change. Foci of right temporal and right parietal encephalomalacia are consistent with a remote insult. There is no hemorrhage, mass effect, or evidence of acute territorial ischemia by CT criteria. Natarajan-white matter differentiation is preserved. No extra-axial fluid collection is seen. Ventricles, sulci, cisterns: Prominent secondary to involutional change. Intracranial vasculature: There is atherosclerotic calcification of the cavernous carotid arteries. Calvarium: Unremarkable. Sinuses and mastoids: The visualized paranasal sinuses are clear. The mastoid air cells are well pneumatized. Orbits: The bony orbits are grossly intact. IMPRESSION: There is no hemorrhage, mass effect, or evidence of acute territorial ischemia by CT criteria. CXR 10/26/19 SINGLE VIEW CHEST CLINICAL HISTORY: Seizure. FINDINGS: 2 AP, portable, semierect chest radiographs are compared to study dated 08/19/2018. Correlation is made with chest CT dated 02/14/2018. The examination is severely degraded by portable technique, scoliosis, and patient rotation. The heart is enlarged and there is atherosclerotic calcification of the thoracic aorta. The pulmonary vasculature is noncongested. Chronic interstitial thickening is similar to previous. Biapical scarring is observed. Patchy airspace consolidation is seen in the right upper lobe. Dense consolidation is noted at the right lung base. No large pleural effusion or pneumothorax is seen. The skeletal structures are osteopenic. Degenerative change and scoliosis are noted in the thoracic spine. IMPRESSION: 1. Cardiomegaly without radiographic evidence of congestive failure. 2. There is patchy airspace consolidation in the right upper lobe with dense airspace consolidation at the right lung base. Correlate clinically for evidence of pneumonia/aspiration pneumonitis. Radiographic follow-up to resolution is recommended. CXR 10/28/19 XR chest 1V portable CLINICAL HISTORY: follow up lung infiltrates pneumonia COMPARISON STUDY: 10/26/2019 extent FINDINGS: Mild stable cardiomegaly. Improved aeration right base. Interval development of a focus of consolidation left lung lung base. Slightly progressive infiltrative change right apex. Slightly progressive pulmonary vascular congestion. IMPRESSION: 1. 1. Variable appearance of the chest with improved aeration right lung base. 2. Slightly progressive consolidative process left base with infiltrative changes right apex slightly progressive. 3. Pulmonary vascular congestion slightly progressive ACT 112: Negative or not required by law. Hospital Course (1) AMS (altered mental status): from possible seizure per Dr. Sergei Green's notes (previous hospitalist): -patient presented to the ED on 10/26/2019 brought in by EMS. as per review of the notes, that around 8:30 PM on 10/26/2019, patient was witnessed by family to have brief episode of 1 to 2 minutes of stiffness, seemed like seizure kind of episode, after that she rolled her eyes and she was unresponsive for some time and when woke up she was almost speaking gibberish for about 20 minutes and slowly improved. -patient was loaded with Keppra in the ED -normal prolactin, normal CK, normal, lactic acid. EEG completed (abnormal EEG in an patient with altered mentation due to moderate to severe background slowing suggestive of a nonspecific encephalopathy. No epileptiform discharges are recorded) - Neurologist Dr. Tejada consulted- Does Not recommend to start with antiepileptic drugs at this time "Routine EEG reviewed and consistent with non specific encephalopathy. No epileptiform discharges. Would monitor for now. Would not start AED at this time." -10/28/2019: Patient's mental status improved significant, able to eat the meals. 10/29/19 - remains stable no recurrence of seizure like activity upcoming appointments -11/03/2019 12:00 PM Provider Danny Grier MD Department General Internal Medicine [facility] -11/10/2019 11:20 AM Provider Sandy Laurent PA-C Department Neurology [facility] -11/22/2019 1:20 PM Provider Lee Keller DO Department Family Medicine [facility] Chronic atrial fibrillation -on metoprolol -not on systemic anticoagulation because of bleeding risks as per admission note Possible Aspiration Pneumonitis /CAP? on chest x-ray. per Dr. Sergei Green's notes (previous hospitalist): -The patient is on regular diet at home. She has Multiple Sclerosis (MS), she is mostly bedbound and because of position sometimes she may choke as per son. She has multiple drug allergies, -was empirically started on IV ertapenem by admitting physician -day time hospitalist reviewed the admission Chest X ray which was poorly taken because of patient's body positioning and difficult to see the radiology impression of "patchy airspace consolidation in the right upper lobe with dense airspace consolidation at the right lung base"; Radiographic follow-up to resolution is recommended. -clinically, patient breathing on room air and not febrile. -admission blood culture with no growth to date. urine culture "Three types of organisms present, all high counts probable skin delmar. No further identifications or sensitivities to follow" -repeat CXR 10/28/19: 1. Variable appearance of the chest with improved aeration right lung base. 2. Slightly progressive consolidative process left base with infiltrative changes right apex slightly progressive. 3. Pulmonary vascular congestion slightly progressive -- discharge on Doxycycline 100mg q12h x 6 days advised to include yogurt in daily diet and take probiotics daily ff up with PCP in 1 week repeat CXR in 4 weeks -- follow Speech Therapy recommendations outlined in DC instructions Multiple sclerosis functional quadriplegia secondary to multiple sclerosis -bedbound. Chronic sacral decubitus ulcer stage II -on Levaquin as outpatient -wound care nurse assessed on 10/28/2019 Chronic pain disorder - Continue with home pain medications. Urinary retention -on Alanis catheter. Hypothyroidism -on Synthroid. Hyponatremia -admission serum sodium is 130 -after initial IV fluids, serum sodium has been stable around 131 repeat BMP on ff up with PCP in 1 week Hypomagnesemia -serum magnesium 1.6 on 10/27/2019 - given oral and IV magnesium Mg improved to 2.1 - continue Mg po daily, repeat Mg level on ff up with PCP in 1 week History of endocarditis Disposition d/c home ff up with PCP in 1 week as per MS instrucitons Total Time Total Time Spent Total Time Spent (In Minutes): 5o minutes Discharge Plan Discharge Items Patient Disposition: Home - Home Health Services Reason For Visit: SEIZURE Discharge Diagnosis: Altered Mental Status from possible seizure possible Aspiration pneumonitis chronic atrial fibrillation Multiple sclerosis Chronic sacral decubitus ulcer stage II Urinary retention Hypothyroidism Hyponatremia Activity: Resume your previous activity Non-emergency contact: Primary Care Provider Call non-emergency contact if: you have any medication questions, you have a fever, your wound has increased redness, your wound has increased drainage and your wound pain has increased Follow-up/Referrals: Danny Grier MD [Physician] - 11/03/19 11:45 am Diet: Heart Healthy Diet Comment: please follow speech therapy recommendations noted below Addtl Attending Provider Instructions: Your new medication is Doxycycline 100mg twice a day for 6 days, for pneumonia; and magnesium supplement. Please take a probiotic daily and include yogurt in your daily diet. Drink plenty of fluids. Call immediately if patient demonstrates seizure-like activity again. Call Primary care physician or return to the ER immediately if with increasing cough, sputum production fever/chills, nausea/vomiting, shortness of breath, diarrhea, poor appetite. Speech Therapy recommendations: Aspiration precautions Alternate solids and liquids Crush medications Supervise meals Fully alert and upright Give medications in a carrier Single bites/Small Sips/Slow rate Minced and moist diet Straws ok Make sure fully alert and awake as well as fully upright for all PO intake If difficulty discontinue meal and attempt at next meal Follow up Appointments 11/03/2019 11:05 AM Provider Danny Grier MD Department General Internal Medicine [facility] 11/10/2019 11:20 AM Provider Sandy Laurent PA-C Department Neurology [facility] 11/22/2019 1:20 PM Provider Lee Keller DO Department Family Medicine [facility] Pending Studies at Discharge: No Studies:: Repeat blood work- basic metabolic panel and magnesium- on follow up visit with your primary care physician Stand-Alone Forms: My [facility] [employer], Smoking Cessation Medications and DC Order Prescriptions: New doxycycline hyclate 100 mg capsule 100 mg PO Q12H 6 Days Qty: 12 RF: 0 magnesium oxide 400 mg (241.3 mg magnesium) Tablet 400 mg PO QAM 7 Days Qty: 7 RF: 0 Continued levofloxacin 500 mg tablet 500 mg PO DAILY Qty: 30 RF: 5 levothyroxine 50 mcg Tablet 50 mcg PO DAILY RF: 0 metoprolol tartrate 25 mg tablet 12.5 mg PO BID RF: 0 aspirin 81 mg Tablet,Delayed Release (Dr/Ec) 81 mg PO DAILY RF: 0 amitriptyline 10 mg Tablet 20 mg PO HS RF: 0 baclofen 10 mg Tablet 20 mg PO QID RF: 0 polyethylene glycol 3350 [Miralax] 17 gram/dose Powder 17 g PO DAILY PRN (Reason: Constipation) RF: 0 lorazepam [Ativan] 0.5 mg Tablet 0.5 mg PO BID PRN (Reason: Anxiety) RF: 0 lorazepam [Ativan] 1 mg Tablet 1 mg PO HS RF: 0 furosemide 40 mg Tablet 40 mg PO DAILY PRN (Reason: Edema) RF: 0 hydromorphone [Dilaudid] 4 mg Tablet 4 mg PO Q3H PRN (Reason: Pain, Moderate) RF: 0 calcium carbonate-vitamin D3 [Caltrate with Vitamin D3] 600 mg(1,500mg) -800 unit Tablet 1 tab PO DAILY RF: 0 nystatin 100,000 unit/gram Powder 1 applic TOPICAL BID RF: 0 Discharge Orders: Discharge Order (Routine); Ordered 10/29/19 Ordered By: Bar Menard Admission Data Admit Date/Time: 10/27/19 00:12 Attending Provider: Bar Menard Admit Provider: Rasheed Banks Primary Care Provider: Lee Keller Other Providers: Rasheed Banks ; Sandy Laurent ; Mani Sanford ; Sandy Adan ; Sachin Javier ; [facility] ; Sergei Green
== END 2019-10-29 17:42 | disposition home health service (06) | DRG 100 ==
LOC: ED 21:36 → SUATTDRO 10-27 00:12 → 2E 10-27 00:12

== ENCOUNTER 2021-10-25 06:48 | Inpatient (IN) ==
[2021-10-25] MEDS: NOREPINEPHRINE/D5W 8 MG/508 ML IV ONE ×2 (06:58→07:07)
[2021-10-25] MEDS ORDERED: STAT IV Infusion **Titration per Protocol STA (07:00)
[2021-10-25] MEDS ORDERED: SODIUM CHLORIDE 0.9% 1000ML 1,000 ML IV SCH (07:00)
[2021-10-25] MEDS: NOREPINEPHRINE/D5W 8 MG/508 ML BAG IV SCH ×7 (07:06→15:53)
[2021-10-25 07:31] LABS: iSTAT Creatinine 0.4 mg/dl (0.6-1.3); iSTAT Hemoglobin 11.9 g/dl (12.0-16.0); iSTAT Ionized Calcium 1.16 mmol/l (1.12-1.32); iSTAT Potassium 5.6 mmol/L (3.3-5.0)
[2021-10-25 07:33] LABS: Basophils # (auto) 0.01 K/uL (0-0.2); Basophils % (auto) 0.1 %; Eosinophils # (auto) 0.03 K/uL (0-0.5); Eosinophils % (auto) 0.2 %; Hematocrit (blood only) 31.8 % (37-47); Hemoglobin 9.7 g/dL (12.0-16.0); Immature Granulocytes # (auto) 0.34 K/uL (0.00-0.02); Immature Granulocytes % (auto) 2.6 %; Lymphocytes # (auto) 1.77 K/uL (1.2-3.4); Lymphocytes % (auto) 13.7 %; Mean Corpuscular Hemoglobin 28.2 pg (25-34); Mean Corpuscular Hgb Conc 30.5 g/dL (32-36); Mean Corpuscular Volume 92.4 fL (80-100); Mean Platelet Volume 10.8 fL (7.4-10.4); Monocytes % (auto) 5.4 %; Neutrophils # (auto) 10.09 K/uL (1.4-6.5); Platelet Count 172 K/uL (130-400); RDW Coefficient of Variation 17.5 % (11.5-14.5); RDW Standard Deviation 59.5 fL (36.4-46.3); Red Blood Count 3.44 M/uL (4.2-5.4); White Blood Count 12.94 K/uL (4.8-10.8)
[2021-10-25] MEDS ORDERED: CEFEPIME 2,000 MG/20 ML VIAL IV STA (07:59)
--- NOTE | 2021-10-25 07:59 | Emergency Department Note ---
History of Present Illness General Chief complaint: Cardiac Arrest/CPR Stated complaint: cardiac arrest Time Seen by Provider: 10/25/21 08:13 History of Present Illness 86-year-old female presents to the ED with a chief complaint of cardiac arrest. EMS was called to the patient's residence, where she lives with her son. The patient had complained of some shortness of breath prior to the cardiac arrest. EMS arrived on scene and the patient was in a PEA rhythm. They provided CPR and 3 mg IV epinephrine as well as endotracheal intubation with ROSC. She was transported to the ED for evaluation. She was given two 0.1 mg doses of IV epinephrine in route. She has no spontaneous breathing on her arrival. She is being bagged through her endotracheal tube. Endotracheal tube was at 23 cm and 8.0 size. Additional information was provided by the patient due to her condition. Initial blood pressure obtained here was 65 systolic heart rate was in the low 100s. The son did report a fever last night of 102 although he states that she does intermittently have fever related to her MS. He was concerned about aspiration as she seemed to be having trouble clearing some secretions last night and this morning. Home Medications Medication Instructions Recorded Confirmed Type amitriptyline 10 mg tablet 20 mg PO HS 07/30/18 10/25/21 History aspirin 81 mg tablet,delayed 81 mg PO DAILY 07/30/18 10/25/21 History release baclofen 10 mg tablet 20 mg PO QID 07/30/18 10/25/21 History levothyroxine 50 mcg tablet 50 mcg PO DAILYBB 07/30/18 10/25/21 History metoprolol tartrate 25 mg tablet 12.5 mg PO BID 07/30/18 10/25/21 History polyethylene glycol 3350 17 17 g PO DAILY PRN 07/30/18 10/25/21 History gram/dose oral powder (Miralax) lorazepam 1 mg tablet (Ativan) 1 mg PO BID PRN 07/31/18 10/25/21 History calcium carbonate 600 mg-vitamin 1 tab PO DAILY 10/26/19 10/25/21 History D3 20 mcg (800 unit) tablet (Caltrate with Vitamin D3) hydromorphone 4 mg tablet 4 mg PO Q3H PRN 10/26/19 10/25/21 History (Dilaudid) ferrous sulfate 325 mg (65 mg 325 mg PO BID 03/28/21 10/25/21 History iron) tablet [id number] 0.4 mg-calcium 162 1 tab PO DAILY 03/28/21 10/25/21 History mg-iron 18 qb-trafqfi-vzuldb tablet levofloxacin 500 mg tablet 500 mg PO DAILY 08/01/21 10/25/21 History Allergies Allergy/AdvReac Type Severity Reaction Status Date / Time nitrofurantoin Allergy Severe FEVER Verified 10/25/21 08:32 ceftriaxone Allergy Mild Unknown Verified 10/25/21 08:32 Penicillins Allergy Mild Unknown Verified 10/25/21 08:32 sulbactam Allergy Mild Unknown Verified 10/25/21 08:32 clavulanic acid Allergy Unknown "BETA-LACTAMASE Verified 10/25/21 08:32 INHIBITORS" ALLERGY clindamycin Allergy Unknown RASH Verified 10/25/21 08:32 rifampin Allergy Unknown POSSIBLE Verified 10/25/21 08:32 DRUG FEVER sulfamethoxazole Allergy Unknown RASH/HIVES Verified 10/25/21 08:32 tazobactam Allergy Unknown "BETA-LACTAMASE Verified 10/25/21 08:32 INHIBITORS" ALLERGY trimethoprim Allergy Unknown RASH/HIVES Verified 10/25/21 08:32 Past Med/Surg History Medical History (Updated 10/25/21 @ 11:00 by Mario Browning DO) Acute CVA (cerebrovascular accident) GERD (gastroesophageal reflux disease) History of hepatitis Mitral regurgitation Multiple sclerosis Osteomyelitis Permanent atrial fibrillation Sacral decubitus ulcer, stage III Surgical History H/O cystoscopy S/P hysterectomy (Unknown) S/P tonsillectomy (Unknown) Family History Other Family history non-contributory Social History Smoking Status: Unknown if ever smoked Hx Alcohol Use: No Hx Substance Use: No Preferred Language: Telugu Communication Ability: Effective Clinical Resource Nurse Required: No Beliefs That Will Affect Care: None marital status: / Current Living Situation: Family Current Living Situation Comment: anurag mejias is primary caregiver, HH 2x/wk for bathing, RN 1x/wk well visits Feels Safe at Home: Yes Assistive Devices: None Review of Systems A total of 10 systems reviewed and were otherwise negative Physical Exam Vital Signs Vital Signs - 24 hr 10/25/21 06:55 10/25/21 06:57 10/25/21 07:00 Temperature 36.5 C Temperature Source Oral Pulse Rate 105 H 97 H 84 Pulse Rate from SpO2 Sensor Respiratory Rate 15 16 16 Respiratory Effort / Characteristics Blood Pressure 65/44 L Blood Pressure Mean 55 175 Pulse Oximetry Oxygen Delivery Method Ambu-Bag Mechanical Vent Fraction of Inspired Oxygen Sepsis New/Unexplained Change in Mental Status No Sepsis Action Taken by Nursing MD Previously Notified End-Tidal CO2 26 26 10/25/21 07:02 10/25/21 07:05 10/25/21 07:07 Temperature Temperature Source Pulse Rate 104 H 94 H Pulse Rate from SpO2 Sensor Respiratory Rate 16 16 Respiratory Effort / Characteristics Mechanically Ventilated Blood Pressure Blood Pressure Mean Pulse Oximetry Oxygen Delivery Method Mechanical Vent Fraction of Inspired Oxygen Sepsis New/Unexplained Change in Mental Status Sepsis Action Taken by Nursing End-Tidal CO2 28 27 10/25/21 07:08 10/25/21 07:10 10/25/21 07:15 Temperature Temperature Source Pulse Rate 133 H 134 H 121 H Pulse Rate from SpO2 Sensor Respiratory Rate 16 13 26 H Respiratory Effort / Characteristics Blood Pressure 112/69 91/74 L Blood Pressure Mean 83 79 Pulse Oximetry Oxygen Delivery Method Fraction of Inspired Oxygen Sepsis New/Unexplained Change in Mental Status Sepsis Action Taken by Nursing End-Tidal CO2 32 43 37 10/25/21 07:16 10/25/21 07:20 10/25/21 07:25 Temperature Temperature Source Pulse Rate 117 H 109 H 112 H Pulse Rate from SpO2 Sensor 120 H 112 H Respiratory Rate 32 H 39 H 49 H Respiratory Effort / Characteristics Blood Pressure 126/78 135/98 127/100 Blood Pressure Mean 94 110 109 Pulse Oximetry Oxygen Delivery Method Fraction of Inspired Oxygen Sepsis New/Unexplained Change in Mental Status Sepsis Action Taken by Nursing End-Tidal CO2 41 36 29 10/25/21 07:30 10/25/21 07:32 10/25/21 07:35 Temperature Temperature Source Pulse Rate 102 H 106 H Pulse Rate from SpO2 Sensor Respiratory Rate 52 H Respiratory Effort / Characteristics Blood Pressure Blood Pressure Mean Pulse Oximetry Oxygen Delivery Method Mechanical Vent Fraction of Inspired Oxygen Sepsis New/Unexplained Change in Mental Status Sepsis Action Taken by Nursing End-Tidal CO2 31 21 10/25/21 07:36 10/25/21 07:40 10/25/21 07:42 Temperature Temperature Source Pulse Rate 112 H 106 H 97 H Pulse Rate from SpO2 Sensor Respiratory Rate 45 H 22 22 Respiratory Effort / Characteristics Blood Pressure 138/98 130/93 Blood Pressure Mean 111 105 Pulse Oximetry 94 Oxygen Delivery Method Fraction of Inspired Oxygen 80 Sepsis New/Unexplained Change in Mental Status Sepsis Action Taken by Nursing End-Tidal CO2 35 31 32 10/25/21 07:45 10/25/21 07:50 10/25/21 07:55 Temperature 36.2 C L 36.1 C L 35.9 C L Temperature Source Pulse Rate 105 H 109 H 107 H Pulse Rate from SpO2 Sensor 103 H 102 H 105 H Respiratory Rate 22 22 22 Respiratory Effort / Characteristics Blood Pressure 136/97 139/99 142/92 H Blood Pressure Mean 110 112 108 Pulse Oximetry 96 99 100 Oxygen Delivery Method Mechanical Vent Mechanical Vent Fraction of Inspired Oxygen Sepsis New/Unexplained Change in Mental Status Sepsis Action Taken by Nursing End-Tidal CO2 30 29 28 10/25/21 07:57 10/25/21 08:00 10/25/21 08:02 Temperature 35.7 C L Temperature Source Pulse Rate 89 103 H Pulse Rate from SpO2 Sensor 101 H Respiratory Rate 16 22 Respiratory Effort / Characteristics Blood Pressure 139/80 Blood Pressure Mean 99 Pulse Oximetry 99 100 Oxygen Delivery Method Mechanical Vent Mechanical Vent Fraction of Inspired Oxygen 100 Sepsis New/Unexplained Change in Mental Status Sepsis Action Taken by Nursing End-Tidal CO2 27 27 10/25/21 08:05 10/25/21 08:10 10/25/21 08:15 Temperature 35.6 C L 35.5 C L 35.4 C L Temperature Source Pulse Rate 103 H 99 H 93 H Pulse Rate from SpO2 Sensor 101 H 101 H 97 H Respiratory Rate 22 22 22 Respiratory Effort / Characteristics Blood Pressure 135/86 130/92 138/90 Blood Pressure Mean 102 104 106 Pulse Oximetry 93 96 94 Oxygen Delivery Method Mechanical Vent Mechanical Vent Mechanical Vent Fraction of Inspired Oxygen Sepsis New/Unexplained Change in Mental Status Sepsis Action Taken by Nursing End-Tidal CO2 32 33 33 10/25/21 08:20 10/25/21 08:25 10/25/21 08:30 Temperature 35.3 C L 35.2 C L 35.2 C L Temperature Source Pulse Rate 105 H 95 H 102 H Pulse Rate from SpO2 Sensor 89 96 H 99 H Respiratory Rate 22 22 22 Respiratory Effort / Characteristics Blood Pressure 119/95 133/92 129/88 Blood Pressure Mean 103 105 101 Pulse Oximetry 93 95 94 Oxygen Delivery Method Mechanical Vent Mechanical Vent Mechanical Vent Fraction of Inspired Oxygen Sepsis New/Unexplained Change in Mental Status Sepsis Action Taken by Nursing End-Tidal CO2 34 35 37 10/25/21 08:35 10/25/21 09:00 10/25/21 09:03 Temperature 35.1 C L 34.8 C L Temperature Source Pulse Rate 101 H 92 H 90 Pulse Rate from SpO2 Sensor 98 H 94 H Respiratory Rate 22 22 22 Respiratory Effort / Characteristics Blood Pressure 115/85 128/91 Blood Pressure Mean 95 103 Pulse Oximetry 94 96 Oxygen Delivery Method Mechanical Vent Mechanical Vent Mechanical Vent Fraction of Inspired Oxygen Sepsis New/Unexplained Change in Mental Status Sepsis Action Taken by Nursing End-Tidal CO2 36 34 36 10/25/21 09:05 10/25/21 09:09 10/25/21 09:10 Temperature 34.8 C L 34.8 C L 34.7 C L Temperature Source Rectal Pulse Rate 95 H 100 H Pulse Rate from SpO2 Sensor 97 H 93 H Respiratory Rate 23 22 Respiratory Effort / Characteristics Blood Pressure 128/90 124/84 Blood Pressure Mean 102 97 Pulse Oximetry 93 94 Oxygen Delivery Method Fraction of Inspired Oxygen Sepsis New/Unexplained Change in Mental Status Sepsis Action Taken by Nursing End-Tidal CO2 36 35 10/25/21 09:15 10/25/21 09:20 10/25/21 09:25 Temperature 34.8 C L 34.8 C L 34.8 C L Temperature Source Pulse Rate 99 H 90 93 H Pulse Rate from SpO2 Sensor 93 H 89 90 Respiratory Rate 22 22 22 Respiratory Effort / Characteristics Blood Pressure 103/80 87/64 L 83/66 L Blood Pressure Mean 87 71 71 Pulse Oximetry 92 91 92 Oxygen Delivery Method Mechanical Vent Fraction of Inspired Oxygen Sepsis New/Unexplained Change in Mental Status Sepsis Action Taken by Nursing End-Tidal CO2 35 33 34 10/25/21 09:30 10/25/21 09:35 10/25/21 09:40 Temperature 34.8 C L 34.8 C L 34.8 C L Temperature Source Pulse Rate 90 95 H 90 Pulse Rate from SpO2 Sensor 94 H 91 H 93 H Respiratory Rate 22 22 22 Respiratory Effort / Characteristics Blood Pressure 103/79 115/87 109/82 Blood Pressure Mean 87 96 91 Pulse Oximetry 92 93 94 Oxygen Delivery Method Mechanical Vent Mechanical Vent Mechanical Vent Fraction of Inspired Oxygen Sepsis New/Unexplained Change in Mental Status Sepsis Action Taken by Nursing End-Tidal CO2 34 35 36 10/25/21 09:45 10/25/21 09:50 10/25/21 09:55 Temperature 34.8 C L 34.8 C L 34.8 C L Temperature Source Pulse Rate 89 101 H 89 Pulse Rate from SpO2 Sensor 93 H 96 H 97 H Respiratory Rate 22 22 22 Respiratory Effort / Characteristics Blood Pressure 112/84 108/82 110/80 Blood Pressure Mean 93 90 90 Pulse Oximetry 93 93 93 Oxygen Delivery Method Mechanical Vent Mechanical Vent Mechanical Vent Fraction of Inspired Oxygen Sepsis New/Unexplained Change in Mental Status Sepsis Action Taken by Nursing End-Tidal CO2 34 36 34 10/25/21 10:00 10/25/21 10:04 10/25/21 10:05 Temperature 34.8 C L 34.8 C L 34.8 C L Temperature Source Pulse Rate 90 94 H 94 H Pulse Rate from SpO2 Sensor 96 H 94 H 93 H Respiratory Rate 22 23 22 Respiratory Effort / Characteristics Blood Pressure 107/79 101/78 Blood Pressure Mean 88 85 Pulse Oximetry 92 92 93 Oxygen Delivery Method Mechanical Vent Mechanical Vent Fraction of Inspired Oxygen Sepsis New/Unexplained Change in Mental Status Sepsis Action Taken by Nursing End-Tidal CO2 34 34 37 10/25/21 10:10 10/25/21 10:15 10/25/21 10:20 Temperature 34.8 C L 34.8 C L 34.9 C L Temperature Source Pulse Rate 95 H 95 H 88 Pulse Rate from SpO2 Sensor 93 H 95 H 88 Respiratory Rate 22 23 22 Respiratory Effort / Characteristics Blood Pressure 104/79 100/75 101/78 Blood Pressure Mean 87 83 85 Pulse Oximetry 92 92 91 Oxygen Delivery Method Mechanical Vent Mechanical Vent Fraction of Inspired Oxygen Sepsis New/Unexplained Change in Mental Status Sepsis Action Taken by Nursing End-Tidal CO2 35 34 35 10/25/21 10:25 10/25/21 10:30 10/25/21 10:35 Temperature 34.9 C L 34.9 C L 34.9 C L Temperature Source Pulse Rate 96 H 93 H 98 H Pulse Rate from SpO2 Sensor 99 H 96 H 101 H Respiratory Rate 22 22 22 Respiratory Effort / Characteristics Blood Pressure 96/72 L 99/81 L 101/78 Blood Pressure Mean 80 87 85 Pulse Oximetry 92 92 92 Oxygen Delivery Method Mechanical Vent Mechanical Vent Fraction of Inspired Oxygen Sepsis New/Unexplained Change in Mental Status Sepsis Action Taken by Nursing End-Tidal CO2 35 35 35 10/25/21 10:40 10/25/21 10:45 10/25/21 10:50 Temperature 35.0 C L 35.0 C L 35.0 C L Temperature Source Pulse Rate 90 93 H 99 H Pulse Rate from SpO2 Sensor 96 H 97 H 100 H Respiratory Rate 22 22 22 Respiratory Effort / Characteristics Blood Pressure 93/78 L 99/74 L 99/78 L Blood Pressure Mean 83 82 85 Pulse Oximetry 92 93 92 Oxygen Delivery Method Mechanical Vent Mechanical Vent Mechanical Vent Fraction of Inspired Oxygen Sepsis New/Unexplained Change in Mental Status Sepsis Action Taken by Nursing End-Tidal CO2 35 35 36 CONSTITUTIONAL/VITAL SIGNS: Reviewed / noted above. GENERAL: Non-toxic in appearance. INTEGUMENTARY: Warm, dry, and cyanotic in the lower extremities. Patient has a sacral decubitus ulcer in the buttock area that is deep HEAD: Normocephalic. EYES: without scleral icterus or trauma. Corneas are slightly dry. Pupils are dilated and fixed. ENT/OROPHARYNX: clear and moist. Endotracheal tube in place. Taped at 23cm at the lip. (This was withdrawn to 21 after chest x-ray.) LYMPHADENOPATHY/NECK: Is supple without lymphadenopathy or meningismus. RESPIRATORY: No respiratory effort spontaneously. Patient being ventilated with ventilator. Diminished breath sounds bilaterally. CARDIOVASCULAR: Tachycardic and irregular. GI/ABDOMEN: Soft EXTREMITIES: Peripheral cyanosis especially in the lower extremities. BACK: Sacral decubitus ulcer NEUROLOGICAL: None. Pupils are fixed and dilated. No gag reflex. No spontaneous respirations. No spontaneous movements. MUSCULOSKELETAL: Chronically ill-appearing with poor muscle development TRIAGE NURSING DOCUMENTATION REVIEWED. Procedures ABG Interpretation ABG Interpretation 1: ABG Results: 7.0/63/222 Additional Comments: ABG reveals a acidosis likely combined metabolic and respiratory. Adequate oxygenation with supplemental oxygen Central Line Placement Right IJ: Time Out Performed: Yes Patient Placed on Monitor/Pulse Ox: Yes MD Prep: mask, gown and gloves Central Line Prep: Chlorhexidine scrub Ultrasound Used for Placement: Yes Central Line Lumen Inserted: triple Post Procedure: good blood return, all ports aspirated, flushed, capped and sterile dressing applied Post Procedure X-Ray: tip of catheter in good position and no pneumothorax seen Patient Tolerated Procedure: well and no complications Complications: none Course Administered Medications Norepinephrine Bitartrate (Levophed/D5w) 8 mg in 508 mls @ 190.5 mls/hr IV .Q2H40M CHRISTOFER; Protocol Stop: 11/24/21 06:59 Last Titration: 10/25/21 09:27 Dose: 1 mcg/kg/min, 190.5 mls/hr Documented by: [id number] Titration: 10/25/21 09:12 Dose: 0.5 mcg/kg/min, 95.3 mls/hr Documented by: [id number] Titration: 10/25/21 08:32 Dose: 1.5 mcg/kg/min, 285.8 mls/hr Documented by: [id number] Cosigned by: [id number] Admin: 10/25/21 08:32 Dose: 1 mcg/kg/min, 190.5 mls/hr Documented by: [id number] Cosigned by: [id number] Admin: 10/25/21 07:58 Dose: 1.5 mcg/kg/min, 285.8 mls/hr Documented by: [id number] Cosigned by: [id number] Titration: 10/25/21 07:58 Dose: 2 mcg/kg/min, 381 mls/hr Documented by: [id number] Cosigned by: [id number] Titration: 10/25/21 07:25 Dose: 2 mcg/kg/min, 381 mls/hr Documented by: [id number] Titration: 10/25/21 07:09 Dose: 2.5 mcg/kg/min, 476.3 mls/hr Documented by: [id number] Admin: 10/25/21 07:06 Dose: 3.3 mcg/kg/min, 628.7 mls/hr Documented by: [id number] Vancomycin HCl 1,250 mg/ (Sodium Chloride) 525 mls @ 200 mls/hr IV NOW ONE Stop: 10/25/21 12:30 Last Admin: 10/25/21 10:16 Dose: 200 mls/hr Documented by: [id number] Discontinued Medications Sodium Chloride (Nss 1000ml) 1,000 mls @ 999 mls/hr IV .Q1H1M CHRISTOFER Stop: 10/25/21 08:00 Last Infusion: 10/25/21 08:24 Dose: 0 mls/hr Documented by: [id number] Admin: 10/25/21 07:25 Dose: 999 mls/hr Documented by: [id number] Cefepime HCl (Maxipime) 2,000 mg in 20 mls @ 5 mls/min IV NOW STA; Protocol Stop: 10/25/21 08:02 Last Admin: 10/25/21 08:16 Dose: 5 mls/min Documented by: [id number] Ioversol (Optiray 320 125ml) 120 ml IV ONCE ONE Stop: 10/25/21 08:57 Last Admin: 10/25/21 09:00 Dose: 120 ml Documented by: [id number] Norepinephrine Bitartrate (Norepinephrine/D5w 8 Mg/508 Ml) Confirm Administered Dose 8 mg IV .STK-MED ONE Stop: 10/25/21 06:57 Last Admin: 10/25/21 07:07 Dose: Not Given Documented by: [id number] Critical Care Time Critical Care Time: Yes Total Critical Care Time: 45 Prolonged Care Time I have personally spent 45 minutes of critical care time in the direct management of this patient. This includes bedside care, interpretation of diagnostic studies, and testing, discussion with consultants, patient, and family members, and other required patient management activities. This 45 minutes is in excess of all separately billable procedures. Medical Decision Making Differential Diagnosis Differential includes acute cardiac dysrhythmia, microinfarction, CVA, TIA, dehydration, anemia, electrolyte disturbance, seizure, trauma, intracranial bleeding, acute vascular catastrophe, thoracic aortic dissection, PE, abdominal aortic aneurysm rupture, infection, hypoglycemia, overdose, trauma. Medical Records Attestation: I reviewed the patient's medical records. Home Medications Current Medication List: was personally reviewed by me Laboratory Data Attestation: I reviewed the patient's lab results. Result diagrams: 10/25/21 07:20 10/25/21 07:20 Lab Results 10/25/21 10/25/21 10/25/21 Range/Units 07:18 07:20 07:20 WBC 12.94 H (4.8-10.8) K/uL RBC 3.44 L (4.2-5.4) M/uL Hgb 9.7 L (12.0-16.0) g/dL POC Hgb 11.9 L (12.0-16.0) g/dl Hct 31.8 L (37-47) % POC Hct 35 L (37-47) % MCV 92.4 (80-100) fL MCH 28.2 (25-34) pg MCHC 30.5 L (32-36) g/dL RDW Std Deviation 59.5 H (36.4-46.3) fL RDW Coeff of Arsenio 17.5 H (11.5-14.5) % Plt Count 172 (130-400) K/uL MPV 10.8 H (7.4-10.4) fL Immature Gran % (Auto) 2.6 % Neut % (Auto) 78.0 % Lymph % (Auto) 13.7 % Wright % (Auto) 5.4 % Eos % (Auto) 0.2 % Baso % (Auto) 0.1 % Neut # (Auto) 10.09 H (1.4-6.5) K/uL Lymph # (Auto) 1.77 (1.2-3.4) K/uL Wright # (Auto) 0.70 H (0.11-0.59) K/uL Eos # (Auto) 0.03 (0-0.5) K/uL Baso # (Auto) 0.01 (0-0.2) K/uL Immature Gran # (Auto) 0.34 H (0.00-0.02) K/uL PT (9.0-12.0) Seconds INR (0.9-1.1) APTT (21.0-31.0) Seconds PTT Ratio POC pH (7.35-7.45) POC pCO2 (35-46) mmHg POC pO2 (80-95) mmHg POC HCO3 (19-24) mariana/L POC Base Excess (-9-1.8) mariana/L POC ABG O2 Sat (90-95) % POC Sodium 138 (135-144) mmol/L Sodium 136 (136-145) mmol/L POC Potassium 5.6 H (3.3-5.0) mmol/L Potassium 4.2 (3.5-5.1) mmol/L POC Chloride 103 (101-112) mmol/L Chloride 105 (98-107) mmol/L Carbon Dioxide 16 L (21-32) mmol/L POC Total CO2 24 (24-31) mmol/L Anion Gap 15 H (3-11) POC Anion Gap 17.0 (16-25) mmol/L POC BUN 24 H (7-18) mg/dl BUN 17 (6-23) mg/dl Creatinine 0.37 L (0.6-1.2) mg/dl POC Creatinine 0.4 L (0.6-1.3) mg/dl Est Cr Clr Drug Dosing Not Reportable Est GFR ( Amer) 112.9 ml/min Est GFR (Non-Af Amer) 97.4 ml/min BUN/Creatinine Ratio 45.9 H (10-20) Glucose 189 H (70-99(Fasting)) mg/dl POC Glucose (other) 134 H (70-99) mg/dl Lactate (0.4-2.0) mmol/L Calcium 7.0 L (8.5-10.1) mg/dl POC Ioniz Calcium Em 1.16 (1.12-1.32) mmol/l Magnesium 2.1 (1.7-2.4) mg/dl Total Bilirubin 0.6 (0.2-1.0) mg/dl AST 104 H (13-39) U/L ALT 43 (7-52) U/L Alkaline Phosphatase 76 (34-104) U/L Troponin I 0.22 H* (0-0.04) ng/ml Total Protein 4.7 L (6.0-8.3) gm/dl Albumin 2.2 L (3.4-5.0) gm/dl Globulin 2.5 (2.5-4.0) gm/dl Albumin/Globulin Ratio 0.9 (0.9-2) Urine Color Urine Appearance (Clear) Urine pH (4.5-7.5) Ur Specific Aurora (1.000-1.030) Urine Protein (Negative) Urine Glucose (UA) (Negative) Urine Ketones (Negative) Urine Blood (Negative) Urine Nitrite (Negative) Urine Bilirubin (Negative) Urine Urobilinogen (Negative) Ur Leukocyte Esterase (Negative) Urine WBC (Auto) (0-5) /hpf Urine RBC (Auto) (0-4) /hpf U Hyaline Cast (Auto) (0-5) /lpf U Epithel Cells (Auto) (0-5) /lpf Urine Bacteria (Auto) (Negative) Urine Crystals Calcium Oxalate Crystal (None Prsent) Uric Acid Crystals (None Prsent) Urine Yeast (None Prsent) SARS-CoV-2, RNA, NAAT (NEGATIVE) 10/25/21 10/25/21 10/25/21 Range/Units 07:20 07:20 07:38 WBC (4.8-10.8) K/uL RBC (4.2-5.4) M/uL Hgb (12.0-16.0) g/dL POC Hgb 9.9 L (12.0-16.0) g/dl Hct (37-47) % POC Hct 29 L (37-47) % MCV (80-100) fL MCH (25-34) pg MCHC (32-36) g/dL RDW Std Deviation (36.4-46.3) fL RDW Coeff of Arsenio (11.5-14.5) % Plt Count (130-400) K/uL MPV (7.4-10.4) fL Immature Gran % (Auto) % Neut % (Auto) % Lymph % (Auto) % Wright % (Auto) % Eos % (Auto) % Baso % (Auto) % Neut # (Auto) (1.4-6.5) K/uL Lymph # (Auto) (1.2-3.4) K/uL Wright # (Auto) (0.11-0.59) K/uL Eos # (Auto) (0-0.5) K/uL Baso # (Auto) (0-0.2) K/uL Immature Gran # (Auto) (0.00-0.02) K/uL PT 16.0 H (9.0-12.0) Seconds INR 1.5 H (0.9-1.1) APTT 45.5 H* (21.0-31.0) Seconds PTT Ratio 1.7 POC pH 7.01 L* (7.35-7.45) POC pCO2 63 H (35-46) mmHg POC pO2 220 H (80-95) mmHg POC HCO3 16 L (19-24) mariana/L POC Base Excess -15.0 L (-9-1.8) mariana/L POC ABG O2 Sat 99.0 H (90-95) % POC Sodium 135 (135-144) mmol/L Sodium (136-145) mmol/L POC Potassium 4.3 (3.3-5.0) mmol/L Potassium (3.5-5.1) mmol/L POC Chloride (101-112) mmol/L Chloride (98-107) mmol/L Carbon Dioxide (21-32) mmol/L POC Total CO2 18 L (24-31) mmol/L Anion Gap (3-11) POC Anion Gap (16-25) mmol/L POC BUN (7-18) mg/dl BUN (6-23) mg/dl Creatinine (0.6-1.2) mg/dl POC Creatinine (0.6-1.3) mg/dl Est Cr Clr Drug Dosing Est GFR ( Amer) ml/min Est GFR (Non-Af Amer) ml/min BUN/Creatinine Ratio (10-20) Glucose (70-99(Fasting)) mg/dl POC Glucose (other) (70-99) mg/dl Lactate 10.4 H* (0.4-2.0) mmol/L Calcium (8.5-10.1) mg/dl POC Ioniz Calcium Em (1.12-1.32) mmol/l Magnesium (1.7-2.4) mg/dl Total Bilirubin (0.2-1.0) mg/dl AST (13-39) U/L ALT (7-52) U/L Alkaline Phosphatase (34-104) U/L Troponin I (0-0.04) ng/ml Total Protein (6.0-8.3) gm/dl Albumin (3.4-5.0) gm/dl Globulin (2.5-4.0) gm/dl Albumin/Globulin Ratio (0.9-2) Urine Color Urine Appearance (Clear) Urine pH (4.5-7.5) Ur Specific Aurora (1.000-1.030) Urine Protein (Negative) Urine Glucose (UA) (Negative) Urine Ketones (Negative) Urine Blood (Negative) Urine Nitrite (Negative) Urine Bilirubin (Negative) Urine Urobilinogen (Negative) Ur Leukocyte Esterase (Negative) Urine WBC (Auto) (0-5) /hpf Urine RBC (Auto) (0-4) /hpf U Hyaline Cast (Auto) (0-5) /lpf U Epithel Cells (Auto) (0-5) /lpf Urine Bacteria (Auto) (Negative) Urine Crystals Calcium Oxalate Crystal (None Prsent) Uric Acid Crystals (None Prsent) Urine Yeast (None Prsent) SARS-CoV-2, RNA, NAAT (NEGATIVE) 10/25/21 10/25/21 10/25/21 Range/Units 08:30 09:19 09:20 WBC (4.8-10.8) K/uL RBC (4.2-5.4) M/uL Hgb (12.0-16.0) g/dL POC Hgb (12.0-16.0) g/dl Hct (37-47) % POC Hct (37-47) % MCV (80-100) fL MCH (25-34) pg MCHC (32-36) g/dL RDW Std Deviation (36.4-46.3) fL RDW Coeff of Arsenio (11.5-14.5) % Plt Count (130-400) K/uL MPV (7.4-10.4) fL Immature Gran % (Auto) % Neut % (Auto) % Lymph % (Auto) % Wright % (Auto) % Eos % (Auto) % Baso % (Auto) % Neut # (Auto) (1.4-6.5) K/uL Lymph # (Auto) (1.2-3.4) K/uL Wright # (Auto) (0.11-0.59) K/uL Eos # (Auto) (0-0.5) K/uL Baso # (Auto) (0-0.2) K/uL Immature Gran # (Auto) (0.00-0.02) K/uL PT (9.0-12.0) Seconds INR (0.9-1.1) APTT (21.0-31.0) Seconds PTT Ratio POC pH (7.35-7.45) POC pCO2 (35-46) mmHg POC pO2 (80-95) mmHg POC HCO3 (19-24) mariana/L POC Base Excess (-9-1.8) mariana/L POC ABG O2 Sat (90-95) % POC Sodium (135-144) mmol/L Sodium (136-145) mmol/L POC Potassium (3.3-5.0) mmol/L Potassium (3.5-5.1) mmol/L POC Chloride (101-112) mmol/L Chloride (98-107) mmol/L Carbon Dioxide (21-32) mmol/L POC Total CO2 (24-31) mmol/L Anion Gap (3-11) POC Anion Gap (16-25) mmol/L POC BUN (7-18) mg/dl BUN (6-23) mg/dl Creatinine (0.6-1.2) mg/dl POC Creatinine (0.6-1.3) mg/dl Est Cr Clr Drug Dosing Est GFR ( Amer) ml/min Est GFR (Non-Af Amer) ml/min BUN/Creatinine Ratio (10-20) Glucose (70-99(Fasting)) mg/dl POC Glucose (other) (70-99) mg/dl Lactate 9.0 H* (0.4-2.0) mmol/L Calcium (8.5-10.1) mg/dl POC Ioniz Calcium Em (1.12-1.32) mmol/l Magnesium (1.7-2.4) mg/dl Total Bilirubin (0.2-1.0) mg/dl AST (13-39) U/L ALT (7-52) U/L Alkaline Phosphatase (34-104) U/L Troponin I (0-0.04) ng/ml Total Protein (6.0-8.3) gm/dl Albumin (3.4-5.0) gm/dl Globulin (2.5-4.0) gm/dl Albumin/Globulin Ratio (0.9-2) Urine Color Dark Yellow Urine Appearance Turbid A (Clear) Urine pH 6.5 (4.5-7.5) Ur Specific Aurora 1.018 (1.000-1.030) Urine Protein 1+ H (Negative) Urine Glucose (UA) Negative (Negative) Urine Ketones Negative (Negative) Urine Blood 3+ H (Negative) Urine Nitrite Positive A (Negative) Urine Bilirubin Negative (Negative) Urine Urobilinogen Negative (Negative) Ur Leukocyte Esterase 2+ H (Negative) Urine WBC (Auto) >30 H (0-5) /hpf Urine RBC (Auto) >30 H (0-4) /hpf U Hyaline Cast (Auto) 0 (0-5) /lpf U Epithel Cells (Auto) 20-30 H (0-5) /lpf Urine Bacteria (Auto) 2+ H (Negative) Urine Crystals Not Reportable Calcium Oxalate Crystal Present A (None Prsent) Uric Acid Crystals Present A (None Prsent) Urine Yeast Budding w/ Hyphae A (None Prsent) SARS-CoV-2, RNA, NAAT NEGATIVE (NEGATIVE) 10/25/21 Range/Units Unknown WBC (4.8-10.8) K/uL RBC (4.2-5.4) M/uL Hgb (12.0-16.0) g/dL POC Hgb (12.0-16.0) g/dl Hct (37-47) % POC Hct (37-47) % MCV (80-100) fL MCH (25-34) pg MCHC (32-36) g/dL RDW Std Deviation (36.4-46.3) fL RDW Coeff of Arsenio (11.5-14.5) % Plt Count (130-400) K/uL MPV (7.4-10.4) fL Immature Gran % (Auto) % Neut % (Auto) % Lymph % (Auto) % Wright % (Auto) % Eos % (Auto) % Baso % (Auto) % Neut # (Auto) (1.4-6.5) K/uL Lymph # (Auto) (1.2-3.4) K/uL Wright # (Auto) (0.11-0.59) K/uL Eos # (Auto) (0-0.5) K/uL Baso # (Auto) (0-0.2) K/uL Immature Gran # (Auto) (0.00-0.02) K/uL PT (9.0-12.0) Seconds INR (0.9-1.1) APTT (21.0-31.0) Seconds PTT Ratio POC pH (7.35-7.45) POC pCO2 (35-46) mmHg POC pO2 (80-95) mmHg POC HCO3 (19-24) mariana/L POC Base Excess (-9-1.8) mariana/L POC ABG O2 Sat (90-95) % POC Sodium (135-144) mmol/L Sodium (136-145) mmol/L POC Potassium (3.3-5.0) mmol/L Potassium (3.5-5.1) mmol/L POC Chloride (101-112) mmol/L Chloride (98-107) mmol/L Carbon Dioxide (21-32) mmol/L POC Total CO2 (24-31) mmol/L Anion Gap (3-11) POC Anion Gap (16-25) mmol/L POC BUN (7-18) mg/dl BUN (6-23) mg/dl Creatinine (0.6-1.2) mg/dl POC Creatinine (0.6-1.3) mg/dl Est Cr Clr Drug Dosing Est GFR ( Amer) ml/min Est GFR (Non-Af Amer) ml/min BUN/Creatinine Ratio (10-20) Glucose (70-99(Fasting)) mg/dl POC Glucose (other) (70-99) mg/dl Lactate (0.4-2.0) mmol/L Calcium (8.5-10.1) mg/dl POC Ioniz Calcium Em (1.12-1.32) mmol/l Magnesium (1.7-2.4) mg/dl Total Bilirubin (0.2-1.0) mg/dl AST (13-39) U/L ALT (7-52) U/L Alkaline Phosphatase (34-104) U/L Troponin I (0-0.04) ng/ml Total Protein (6.0-8.3) gm/dl Albumin (3.4-5.0) gm/dl Globulin (2.5-4.0) gm/dl Albumin/Globulin Ratio (0.9-2) Urine Color Urine Appearance (Clear) Urine pH (4.5-7.5) Ur Specific Aurora (1.000-1.030) Urine Protein (Negative) Urine Glucose (UA) (Negative) Urine Ketones (Negative) Urine Blood (Negative) Urine Nitrite (Negative) Urine Bilirubin (Negative) Urine Urobilinogen (Negative) Ur Leukocyte Esterase (Negative) Urine WBC (Auto) (0-5) /hpf Urine RBC (Auto) (0-4) /hpf U Hyaline Cast (Auto) (0-5) /lpf U Epithel Cells (Auto) (0-5) /lpf Urine Bacteria (Auto) (Negative) Urine Crystals Calcium Oxalate Crystal (None Prsent) Uric Acid Crystals (None Prsent) Urine Yeast (None Prsent) SARS-CoV-2, RNA, NAAT See Comment (NEGATIVE) Imaging Data My Impression: X-ray: Per my interpretation there is a endotracheal tube at the level of the laron. The endotracheal tube was withdrawn 2 cm. The central line appears to be in the right atrium/distal superior vena cava. No pneumothorax. Right middle lobe parenchymal infiltrate. Radiologist's Impression: Chest X-Ray 10/25/21 07:02 XR chest 1V portable CLINICAL HISTORY: SEPSIS TECHNIQUE: Single frontal radiograph of the chest was obtained. Comparison: Comparison is made to chest one view 10/28/2019 FINDINGS: Endotracheal tube is seen with the tip approximately 1 cm from the laron. Right venous catheter tip is in the lower SVC. Cardiomegaly is noted. Calcified aortic arch is seen. Multifocal airspace opacities are seen. Interstitial thickening is seen. No evidence of pleural effusion or pneumothorax. IMPRESSION: 1. Multifocal airspace opacities may represent atelectasis, pneumonia, and/or aspiration. 2. The endotracheal tube tip is 1 cm from the laron and can be withdrawn approximately 2 cm for improved positioning. ACT 112: Negative or not required by law. Electronically signed by: Stephan Benedict M.D. 10/25/2021 8:19 AM Abdomen/Pelvis CT 10/25/21 07:[address] WITH IV CONTRAST CT DOSE: HISTORY: Status post cardiac arrest. TECHNIQUE: Multiaxial CT images of the abdomen and pelvis were performed following the use of intravenous contrast. A dose lowering technique was u tilized adhering to the principles of ALARA. COMPARISON STUDY: Pelvis CT 09/27/2012. FINDINGS: Severe compression deformity at L1 with 5 mm of retropulsion and moderate to severe central canal narrowing. This is likely chronic. There is an old mild superior endplate compression deformity at L3 and a subacute to chronic mild superior endplate compression deformity at L5. Nondisplaced acute bilateral rib fractures. There is an acute nondisplaced sternal fracture. Bibasilar consolidation most pronounced within the left lower lobe. There is near complete opacification of the left lower lobe bronchi. This could be due to aspiration. Trace bilateral pleural effusions. There is a left total arthroplasty. Right pubic ring deformity likely represent old, healed fractures. Resorption of the right femoral head which is chronic. Bony destruction involving the mid sacrum with focal area of expansion on the left side of the sacrum measuring 2.1 cm. T his is nonspecific could be due to old postoperative change, osteomyelitis, or less likely underlying sacral lesion. There is diffuse body wall edema. The liver, spleen, adrenal glands, pancreas are unremarkable. Bilateral cortical renal scarring. No hydronephrosis. The main portal vein is patent. Normal caliber abdominal aorta. A rectal catheter and Alanis catheter. Good position. Large amount well-formed stool within the distal colon and rectum. This includes a 9.4 cm rectal stool ball. The bladder is decompressed by a Alanis catheter. Mildly distended gas and fluid-filled loops of small bowel. This favors an ileus. No transition point to suggest a bowel obstruction. Suboptimal evaluation for bowel pathology due to the lack of intraperitoneal fat. However, there is no definite bowel wall thickening. Normal gallbladder. IMPRESSION: 1. Nondisplaced acute anterior bilateral rib fractures and a nondisplaced midsternal fracture. 2. Consolidation within the left lower lobe with near complete opacification of the left lower lobe bronchi. This could be due to aspiration. 3. Mildly dilated gas and fluid-filled loops of stomach and small bowel. This favors an ileus. No evidence for bowel obstruction. 4. Large amount well-formed stool within the distal colon and rectum including a 9.4 cm rectal stool ball. 5. Diffuse body wall edema. 6. Bony destruction involving the mid sacrum with focal area of expansion on the left side of the sacrum measuring 2.1 cm. This is nonspecific could be due to old postoperative change, osteomyelitis, or less likely underlying sacral lesion. Clinical correlation recommended. 7. Additional findings as described above. ACT 112: Negative or not required by law. Electronically signed by: Sunil Hutton M.D. 10/25/2021 9:44 AM Chest CTA 10/25/21 07:35 CT angio chest PE protocol CLINICAL HISTORY: post arrest TECHNIQUE: Multidetector row helical CT of the chest was performed with angiographic protocol. Coronal and sagittal reformations were obtained. Coronal and sagittal MIPS were obtained from the axial data set and were submitted for review. Automated dose lowering techniques and/or adjustment according to patient size were utilized for this exam. Comparison: None available at the time of this dictation. FINDINGS: Lungs and pleura: Small bilateral pleural effusions are seen with underlying atelectasis. Diffuse groundglass and consolidative opacities are seen. Heart and pericardium: Cardiomegaly is seen with biatrial enlargement. Vessels: Moderate atherosclerotic changes in the aorta and coronary arteries. No evidence of pulmonary embolism. Mediastinum and nilda: Unremarkable. Chest wall and lower neck: Unremarkable. Abdomen: Unremarkable. Bones: Unremarkable. IMPRESSION: 1. No evidence of pulmonary embolism. 2. Diffuse groundglass and consolidative opacities may represent pneumonia, aspiration, or contusion in this patient status post arrest. 3. Small bilateral pleural effusions. ACT 112: Negative or not required by law. Electronically signed by: Stephan Benedict M.D. 10/25/2021 9:[address] 10/25/21 07:35 CT head/brain wo con CLINICAL HISTORY: 86 years-old Female with post arrest. Acute cardiac arrest TECHNIQUE: Multiple axial CT images of the head were obtained without contrast. A dose lowering technique was utilized adhering to the principles of ALARA. CT DOSE: 1165.81 mGy.cm COMPARISON: Head CT 10/26/2019 FINDINGS: No acute intracranial hemorrhage, midline shift, intracranial mass, hydrocephalus, or abnormal extra-axial collection. Age-related involutional changes. White matter hypodensities suggest chronic microvascular ischemic disease. Cerebral vascular calcifications. Encephalomalacia from chronic right temporal parietal infarct. The study is mildly motion degraded. Calcifications of the falx cerebri. There is diffuse blurring of the freed-white interface. The calvarium is intact. Mastoid air cells are clear. Moderate sized left maxillary sinus air-fluid level with layering secretions within the nasopharynx. Mild mucosal thickening of the ethmoid air cells. Prior bilateral lens repair. Mild diffuse subcutaneous edema. IMPRESSION: 1. Motion degraded exam. 2. There is diffuse blurring of the freed-white interface suspicious for cerebral edema. No midline shift or herniation. 3. Chronic right MCA territory infarct. ACT 112: Negative or not required by law. The above report was generated using voice recognition software. It may contain grammatical, syntax or spelling errors. Electronically signed by: Chris Bailey M.D. 10/25/2021 9:10 AM ECG Data Attestation: I personally reviewed and interpreted this ECG as follows: Additional Comments: Twelve-lead EKG: Per my interpretation shows A. fib at a rate of 97. No ST elevation. Right bundle branch block. No PVCs MDM Narrative 86-year-old female post PEA arrest. Vital signs here revealed hypotension with a systolic blood pressure of 65. IV norepinephrine was initiated. This improved the blood pressure. Endotracheal tube was withdrawn 2 cm based on location on chest x-ray. This x-ray suggest multifocal pneumonia. Right-sided IJ central line was placed under ultrasound guidance. ABG shows a combined metabolic and respiratory acidosis. Ventilation rate was increased from 16-22 after the ABG. Twelve-lead EKG shows A. fib. IV cefepime was administered empirically, 1 L normal saline IV. CBC shows a white blood cell count of 12.9. Hemoglobin is 9.7. INR is 1.5. Chemistry panel shows an elevated anion gap of 15. Bicarb is 16. Creatinine is 0.37. Glucose is 189. Calcium is 7. Troponin is elevated. Lactic acid is elevated. I did speak to the son about the patient's condition. At this time he states that he does want her to be a full code. I did talk to him about the likelihood of significant brain injury related to the hypoxia and lack of adequate perfusion for a significant period of time prior to ROSC. He does understand that brain injury related to this may be significant. CT scan of the chest did not show PE but does show some rib fractures as well as bilateral pneumonia. Abdominal CT shows findings suggestive of osteomyelitis of the sacrum. CT scan of the brain suggests possibly some blurring of the freed-white matter interface could be suspicious for cerebral edema. Patient was seen by the hospitalist for further inpatient evaluation and care. Impression & Plan Cardiac arrest, Acidosis, lactic, Elevated troponin, Anoxic brain injury, Pneumonia, Acute osteomyelitis of sacrum Discharge Plan Visit Data Chief Complaint: Cardiac Arrest/CPR Stated Complaint: cardiac arrest ED Provider: Mario Browning Discharge Problem: Cardiac arrest, Acidosis, lactic, Elevated troponin, Anoxic brain injury, Pneumonia, Acute osteomyelitis of sacrum Patient Disposition: Admitted As Inpatient Forms Stand Alone Forms: My [facility] Prescriptions Prescriptions: No Action levofloxacin 500 mg tablet 500 mg PO DAILY RF: 0 levothyroxine 50 mcg Tablet 50 mcg PO DAILYBB RF: 0 metoprolol tartrate 25 mg tablet 12.5 mg PO BID RF: 0 aspirin 81 mg Tablet,Delayed Release (Dr/Ec) 81 mg PO DAILY RF: 0 amitriptyline 10 mg Tablet 20 mg PO HS RF: 0 baclofen 10 mg Tablet 20 mg PO QID RF: 0 polyethylene glycol 3350 [Miralax] 17 gram/dose Powder 17 g PO DAILY PRN (Reason: Constipation) RF: 0 lorazepam [Ativan] 1 mg Tablet 1 mg PO BID PRN (Reason: Anxiety) RF: 0 hydromorphone [Dilaudid] 4 mg Tablet 4 mg PO Q3H PRN (Reason: Pain, Moderate) RF: 0 calcium carbonate-vitamin D3 [Caltrate with Vitamin D3] 600 mg(1,500mg) -800 unit Tablet 1 tab PO DAILY RF: 0 ferrous sulfate 325 mg (65 mg iron) Tablet 325 mg PO BID RF: 0 Multivital 0.4-162-18 mg Tablet 1 tab PO DAILY RF: 0 Referrals Referrals: Danny Grier MD [Primary Care Provider] -
[2021-10-25 08:00] LABS: INR 1.5 (0.9-1.1); Partial Thromboplastin Ratio 1.7
[2021-10-25 08:01] LABS: iSTAT Arterial Blood Gas HCO3 16 meg/L (19-24); iSTAT Arterial Blood Gas pCO2 63 mmHg (35-46); iSTAT Arterial Blood Gas pH 7.01 (7.35-7.45); iSTAT Arterial Blood Gas pO2 220 mmHg (80-95); iSTAT Carbon Dioxide 18 mmol/L (24-31); iSTAT Hematocrit 29 % (37-47); iSTAT Hemoglobin 9.9 g/dl (12.0-16.0); iSTAT Potassium 4.3 mmol/L (3.3-5.0); iSTAT Sodium 135 mmol/L (135-144)
[2021-10-25 08:01] LABS: Alanine Aminotransferase 43 U/L (7-52); Albumin Globulin Ratio 0.9 (0.9-2); Albumin Level 2.2 gm/dl (3.4-5.0); Alkaline Phosphatase 76 U/L (34-104); Anion Gap 15 (3-11); Aspartate Aminotransferase 104 U/L (13-39); BUN Creatinine Ratio 45.9 (10-20); Bilirubin,Total 0.6 mg/dl (0.2-1.0); Blood Urea Nitrogen 17 mg/dl (6-23); Carbon Dioxide 16 mmol/L (21-32); Chloride 105 mmol/L (98-107); Est GFR (African American) 112.9 ml/min; Est GFR (Non-African American) 97.4 ml/min; Globulin 2.5 gm/dl (2.5-4.0); Glucose 189 mg/dl (70-99(Fasting)); Magnesium 2.1 mg/dl (1.7-2.4); Potassium 4.2 mmol/L (3.5-5.1); Sodium 136 mmol/L (136-145); Total Protein 4.7 gm/dl (6.0-8.3)
[2021-10-25 08:12] LABS: Partial Thromboplastin Time 45.5 Seconds (21.0-31.0)
--- NOTE | 2021-10-25 08:21 | XRay Report ---
XR chest 1V portable CLINICAL HISTORY: SEPSIS TECHNIQUE: Single frontal radiograph of the chest was obtained. Comparison: Comparison is made to chest one view 10/28/2019 FINDINGS: Endotracheal tube is seen with the tip approximately 1 cm from the laron. Right venous catheter tip is in the lower SVC. Cardiomegaly is noted. Calcified aortic arch is seen. Multifocal airspace opacit ies are seen. Interstitial thickening is seen. No evidence of pleural effusion or pneumothorax. IMPRESSION: 1. Multifocal airspace opacities may represent atelectasis, pneumonia, and/or aspiration. 2. The endotracheal tube tip is 1 cm from the laron and can be withdrawn approximately 2 cm for imp roved positioning. ACT 112: Negative or not required by law. Electronically signed by: Stephan Benedict M.D. 10/25/2021 8:19 AM
[2021-10-25 08:22] LABS: Troponin I 0.22 ng/ml (0-0.04)
[2021-10-25 08:51] LABS: Appearance Urine Turbid (Clear); Bacteria Urine Automated 2+ (Negative); Bilirubin Urine Negative (Negative); Blood Urine 3+ (Negative); Color Urine Dark Yellow; Epithelial Cell Urine Auto 20-30 /lpf (0-5); Glucose Urine UA Negative (Negative); Ketones Urine Negative (Negative); Leukocyte Esterase Urine 2+ (Negative); Nitrite Urine Positive (Negative); Protein Urine 1+ (Negative); Specific Gravity Urine 1.018 (1.000-1.030); Urobilinogen Urine Negative (Negative); WBC Urine Automated >30 /hpf (0-5); pH Urine 6.5 (4.5-7.5)
[2021-10-25] MEDS ORDERED: OPTIRAY 320 125ml IV ONE (08:56)
--- NOTE | 2021-10-25 09:11 | CT Scan Report ---
CT head/brain wo con CLINICAL HISTORY: 86 years-old Female with post arrest. Acute cardiac arrest TECHNIQUE: Multiple axial CT images of the head were obtained without contrast. A dose lowering tech nique was utilized adhering to the principles of ALARA. CT DOSE: 1165.81 mGy.cm COMPARISON: Head CT 10/26/2019 FINDINGS: No acute intracranial hemorrhage, midline shift, intracranial mass, hydrocephalus, or abnormal extra- axial collection. Age-related involutional changes. White matter hypodensities suggest chronic microv ascular ischemic disease. Cerebral vascular calcifications. Encephalomalacia from chronic right tempo ral parietal infarct. The study is mildly motion degraded. Calcifications of the falx cerebri. There is diffuse blurring of the freed-white interface. The calvarium is intact. Mastoid air cells are clear. Moderate sized left maxillary sinus air-fluid level with layering secretions within the nasopharynx. Mild mucosal thickening of the ethmoid air ciera ls. Prior bilateral lens repair. Mild diffuse subcutaneous edema. IMPRESSION: 1. Motion degraded exam. 2. There is diffuse blurring of the freed-white interface suspicious for cerebral edema. No midline sh ift or herniation. 3. Chronic right MCA territory infarct. ACT 112: Negative or not required by law. The above report was generated using voice recognition software. It may contain grammatical, syntax o r spelling errors. Electronically signed by: Chris Bailey M.D. 10/25/2021 9:10 AM
--- NOTE | 2021-10-25 09:24 | CT Scan Report ---
CT angio chest PE protocol CLINICAL HISTORY: post arrest TECHNIQUE: Multidetector row helical CT of the chest was performed with angiographic protocol. Banks l and sagittal reformations were obtained. Coronal and sagittal MIPS were obtained from the axial sharon a set and were submitted for review. Automated dose lowering techniques and/or adjustment according to patient size were utilized for this exam. Comparison: None available at the time of this dictation. FINDINGS: Lungs and pleura: Small bilateral pleural effusions are seen with underlying atelectasis. Diffuse priscilla undglass and consolidative opacities are seen. Heart and pericardium: Cardiomegaly is seen with biatrial enlargement. Vessels: Moderate atherosclerotic changes in the aorta and coronary arteries. No evidence of pulmonar y embolism. Mediastinum and nilda: Unremarkable. Chest wall and lower neck: Unremarkable. Abdomen: Unremarkable. Bones: Unremarkable. IMPRESSION: 1. No evidence of pulmonary embolism. 2. Diffuse groundglass and consolidative opacities may represent pneumonia, aspiration, or contusion in this patient status post arrest. 3. Small bilateral pleural effusions. ACT 112: Negative or not required by law. Electronically signed by: Stephan Benedict M.D. 10/25/2021 9:22 AM
[2021-10-25 09:27] LABS: Calcium Oxalate Crystals Urine Present (None Prsent)
[2021-10-25 09:30] LABS: RBC Urine Automated >30 /hpf (0-4)
[2021-10-25 09:31] LABS: Uric Acid Crystals Urine Present (None Prsent)
[2021-10-25 09:32] LABS: Cast Urine Automated 0 /lpf (0-5)
--- NOTE | 2021-10-25 09:45 | CT Scan Report ---
ABDOMEN AND PELVIS CT WITH IV CONTRAST CT DOSE: HISTORY: Status post cardiac arrest. TECHNIQUE: Multiaxial CT images of the abdomen and pelvis were performed following the use of intrave nous contrast. A dose lowering technique was utilized adhering to the principles of ALARA. COMPARISON STUDY: Pelvis CT 09/27/2012. FINDINGS: Severe compression deformity at L1 with 5 mm of retropulsion and moderate to severe central canal narrowing. This is likely chronic. There is an old mild superior endplate compression deformit y at L3 and a subacute to chronic mild superior endplate compression deformity at L5. Nondisplaced ac rebecca bilateral rib fractures. There is an acute nondisplaced sternal fracture. Bibasilar consolidation most pronounced within the left lower lobe. There is near complete opacification of the left lower l obe bronchi. This could be due to aspiration. Trace bilateral pleural effusions. There is a left tota l arthroplasty. Right pubic ring deformity likely represent old, healed fractures. Resorption of the right femoral head which is chronic. Bony destruction involving the mid sacrum with focal area of exp ansion on the left side of the sacrum measuring 2.1 cm. This is nonspecific could be due to old posto perative change, osteomyelitis, or less likely underlying sacral lesion. There is diffuse body wall e coty. The liver, spleen, adrenal glands, pancreas are unremarkable. Bilateral cortical renal scarring . No hydronephrosis. The main portal vein is patent. Normal caliber abdominal aorta. A rectal cathete r and Alanis catheter. Good position. Large amount well-formed stool within the distal colon and rectu m. This includes a 9.4 cm rectal stool ball. The bladder is decompressed by a Alanis catheter. Mildly distended gas and fluid-filled loops of small bowel. This favors an ileus. No transition point to sug gest a bowel obstruction. Suboptimal evaluation for bowel pathology due to the lack of intraperitonea l fat. However, there is no definite bowel wall thickening. Normal gallbladder. IMPRESSION: 1. Nondisplaced acute anterior bilateral rib fractures and a nondisplaced midsternal fracture. 2. Consolidation within the left lower lobe with near complete opacification of the left lower lobe b ronchi. This could be due to aspiration. 3. Mildly dilated gas and fluid-filled loops of stomach and small bowel. This favors an ileus. No ron dence for bowel obstruction. 4. Large amount well-formed stool within the distal colon and rectum including a 9.4 cm rectal stool ball. 5. Diffuse body wall edema. 6. Bony destruction involving the mid sacrum with focal area of expansion on the left side of the sac rum measuring 2.1 cm. This is nonspecific could be due to old postoperative change, osteomyelitis, or less likely underlying sacral lesion. Clinical correlation recommended. 7. Additional findings as described above. ACT 112: Negative or not required by law. Electronically signed by: Sunil Hutton M.D. 10/25/2021 9:44 AM
--- NOTE | 2021-10-25 09:50 | History & Physical Report ---
Date of Service October 25, 2021 Assessment & Plan (1) Cardiac arrest: (2) Acidosis, lactic: (3) Multifocal pneumonia: (4) Elevated troponin: (5) Anoxic brain injury: Plan: - Admit to ICU - Goals of care discussion was held with the son at bedside, currently he wants us to continue with current management and maintain the patient on the drips as he is "just not ready". He has not yet discussed his mothers issues with his brother who lives in [place]. We discussed quality of life, poor prognosis, prolonging life with artificial means, anoxic brain injury, etc at bedside. Discussion was also held with the ICU regarding patient's outcome and they are in agreement with our team there is a very poor prognosis. -We will continue to discuss with the patient's son who is at bedside throughout the day regarding transition to comfort care. - S/p cardiac arrest, PEA, epi push x3 in the field, underwent CPR for at least 30 minutes with ROSC. Unfortunately, the patient likely suffered anoxic brain injury with lack of reflexes including pupil response and gag reflex. - Lactic acidosis with 10.4-->9.0, ABG, pH 7.01, PCO2 = 63, PO2 = 220, HCO3 = 16 initially - Troponin 0 0.22, will trend - Follow blood culture, urine culture - Now maintained on ventilator, norepinephrine drip and started on vancomycin and cefepime. We will continue these for now - continue otilia jordonnisreendexterey cath is chronic due to MS, she is colonized with bacteria, no urinary sx per the son - Imaging studies reviewed showing multifocal pna vs contusions from chest compressions (6) Stage III pressure ulcer of right buttock: (7) Osteomyelitis: Plan: - hx of such, had been following with wound, continue turn and repo Q2H - Consider wound consultation (8) Multiple sclerosis: Plan: - Chronic, pt has not walked in 20 years. Pt is bedbound and pt son has stopped even setting her on bedside commode because of nonhealing ulcerations. He reports evacuating her bowels manually every other day. DVT ppx: lovenox subq CODE: Conditional: Continue intubation, no chest compression if she were to code again. Dispo: Poor prognosis, likely to in the hospital, await further family discussions for transition to comfort care. Plan: Attending Addendum: care coordinated with LIMA Villatoro please refer to her notes for full details, I agree with her notes patient seen and examined, records reviewed by myself as well on exam, patient intubated, on Levophed, Anaid hugger not in distress patient's son at bedside discussed case at length he prefers to pursue full medical care for now and see how patient does in 24-48 hrs no other symptoms VS noted and reviewed intubated not in distress normal rate, regular rhythm, no murmurs (+) crackles bilaterally non distended, soft, nontender mild bipedal edema, erythema, warmth no neuro deficits all noted and reviewed including below ASSESSMENT AND PLAN s/p CARDIAC ARREST HYPOTHERMIA POSSIBLE SEPTIC SHOCK, FROM PNEUMONIA ff up cultures on Vanco + Cefepime Levophed Bairhugger further management of Mech Vent per Distribution Dispatcher other diagnoses and plan of care as per LIMA Villatoro's notes Bar Menard MD History of Present Illness Chief Complaint: Cardiac Arrest Primary Care Provider: Danny Grier MD This is a 86 yo F with PMhx of Chronic A. fib, history of aspiration pneumonia, sacral ulcer, multiple sclerosis, chronic pain, urinary retention, hypothyroidism, hyponatremia, hypomagnesemia, history of endocarditis who presented to the ER after undergoing cardiac arrest and resuscitation in the field. Son reports she had a fever last night however did not think much of it, as this has happened on and off before with her hx of MS. Fever of 101 last night around 9 pm. She ate a late dinner at 10-11 pm, and then proceeded to take her HS meds at 0100 and went to bed. Around 0500 the son woke up because of hearing her possibly talking to herself. He realized that she was working to breath and sounded like there was phlegm in her throat. He attempted to get her to swallow but to no avail. Pt then within 10 minutes slowly stopped breathing and he attempted compressions while she was in bed. He called 911 and they instructed him to move her to the floor and then proceeded to do more compressions. EMS arrived soon thereafter on scene and the patient was in a PEA rhythm. They provided CPR and 3 mg IV epinephrine as well as endotracheal intubation with ROSC. She was transported to the ED for evaluation. She was given two 0.1 mg doses of IV epinephrine in route. She has no spontaneous breathing on her arrival.There are no pupil reflexes or gag reflex. Pt is currently being maintained on norepi gtt and with the attempt to wean her off, BP again drops to systolic of 80s. The son at bedside reports that he is just "not ready" and states he hasn't called his brother, who is living in [place]. Goals of care discussion was held with him at bedside and although he knows her quality of life was poor prior to this: bedbound, hasn't walked in 20 years, sacral decubitus ulceration that is nonhealing, and multiple episodes of a spiration pneumonia. He at this time want me to call the ICU. Discussed with the hopper attendant money market dealer who agrees that this patient would have good outcomes in the event that she would code again. Will further discuss with the family regarding transition to comfort care this morning. Allergies Allergy/AdvReac Type Severity Reaction Status Date / Time nitrofurantoin Allergy Severe FEVER Verified 10/25/21 08:32 ceftriaxone Allergy Mild Unknown Verified 10/25/21 08:32 Penicillins Allergy Mild Unknown Verified 10/25/21 08:32 sulbactam Allergy Mild Unknown Verified 10/25/21 08:32 clavulanic acid Allergy Unknown "BETA-LACTAMASE Verified 10/25/21 08:32 INHIBITORS" ALLERGY clindamycin Allergy Unknown RASH Verified 10/25/21 08:32 rifampin Allergy Unknown POSSIBLE Verified 10/25/21 08:32 DRUG FEVER sulfamethoxazole Allergy Unknown RASH/HIVES Verified 10/25/21 08:32 tazobactam Allergy Unknown "BETA-LACTAMASE Verified 10/25/21 08:32 INHIBITORS" ALLERGY trimethoprim Allergy Unknown RASH/HIVES Verified 10/25/21 08:32 Home Medications Medication Instructions Recorded Confirmed Type amitriptyline 10 mg tablet 20 mg PO HS 07/30/18 10/25/21 History aspirin 81 mg tablet,delayed 81 mg PO DAILY 07/30/18 10/25/21 History release baclofen 10 mg tablet 20 mg PO QID 07/30/18 10/25/21 History levothyroxine 50 mcg tablet 50 mcg PO DAILYBB 07/30/18 10/25/21 History metoprolol tartrate 25 mg tablet 12.5 mg PO BID 07/30/18 10/25/21 History polyethylene glycol 3350 17 17 g PO DAILY PRN 07/30/18 10/25/21 History gram/dose oral powder (Miralax) lorazepam 1 mg tablet (Ativan) 1 mg PO BID PRN 07/31/18 10/25/21 History calcium carbonate 600 mg-vitamin 1 tab PO DAILY 10/26/19 10/25/21 History D3 20 mcg (800 unit) tablet (Caltrate with Vitamin D3) hydromorphone 4 mg tablet 4 mg PO Q3H PRN 10/26/19 10/25/21 History (Dilaudid) ferrous sulfate 325 mg (65 mg 325 mg PO BID 03/28/21 10/25/21 History iron) tablet [id number]-ST 0.4 mg-calcium 162 1 tab PO DAILY 03/28/21 10/25/21 History mg-iron 18 ef-tndqjly-plgnbq tablet levofloxacin 500 mg tablet 500 mg PO DAILY 08/01/21 10/25/21 History Past Med/Surg History Medical History (Updated 10/25/21 @ 11:09 by Alona Olivarez PA-C) Acute CVA (cerebrovascular accident) GERD (gastroesophageal reflux disease) History of hepatitis Mitral regurgitation Multiple sclerosis Osteomyelitis Permanent atrial fibrillation Sacral decubitus ulcer, stage III Surgical History H/O cystoscopy S/P hysterectomy (Unknown) S/P tonsillectomy (Unknown) Family History Other Family history non-contributory Social History Smoking Status: Unknown if ever smoked Hx Alcohol Use: No Hx Substance Use: No Preferred Language: Lithuanian Communication Ability: Effective Improvement Nurse Required: No Beliefs That Will Affect Care: None marital status: / Current Living Situation: Family Current Living Situation Comment: anurag mejias is primary caregiver, HH 2x/wk for bathing, RN 1x/wk well visits Feels Safe at Home: Yes Assistive Devices: None Review of Systems Review of Systems: Unobtainable due to cognitive status, Unobtainable due to endotracheal tube and Unobtainable due to reduced consciousness Physical Exam Physical Exam: General: sedated and intubated on norepinephrine gtt, under bear huggar due to hypothermia Head: Normocephalic, atraumatic ENT: no pupil reflex, glazed eyes, intubated, mucous membranes dry Chest: Diffuse coarse breath sounds on intubation and secretions Cardiac: Regular rate and rhythm, no murmur, no JVD, weak peripheral pulses Abdominal: NABS x 4 quadrants, soft, nondistended, aldana catheter in place Extremities: Diffuse atrophy, ecchymosis of the lower extremities and feet are blue, + peripheral edema of feet bilaterally, no erythema Psych: Normal mood and affect Neuro:sedated and intubated, strength cannot be assessed, no pupil reflex, no g ag reflex Results & Data Results & Data ([facility]) Vital Signs (Past 12 Hours) Vital Signs Temp Pulse Resp BP Pulse Ox 10/25/21 09:40 34.8 C L 90 22 109/82 94 10/25/21 09:35 34.8 C L 95 H 22 115/87 93 10/25/21 09:30 34.8 C L 90 22 103/79 92 10/25/21 09:25 34.8 C L 93 H 22 83/66 L 92 10/25/21 09:20 34.8 C L 90 22 87/64 L 91 10/25/21 09:15 34.8 C L 99 H 22 103/80 92 10/25/21 09:10 34.7 C L 100 H 22 124/84 94 10/25/21 09:09 34.8 C L 10/25/21 09:05 34.8 C L 95 H 23 128/90 93 10/25/21 09:03 34.8 C L 90 22 128/91 96 10/25/21 09:00 92 H 22 10/25/21 08:35 35.1 C L 101 H 22 115/85 94 10/25/21 08:30 35.2 C L 102 H 22 129/88 94 10/25/21 08:25 35.2 C L 95 H 22 133/92 95 10/25/21 08:20 35.3 C L 105 H 22 119/95 93 10/25/21 08:15 35.4 C L 93 H 22 138/90 94 10/25/21 08:10 35.5 C L 99 H 22 130/92 96 10/25/21 08:05 35.6 C L 103 H 22 135/86 93 10/25/21 08:00 35.7 C L 103 H 22 139/80 100 10/25/21 07:57 89 16 99 10/25/21 07:55 35.9 C L 107 H 22 142/92 H 100 10/25/21 07:50 36.1 C L 109 H 22 139/99 99 10/25/21 07:45 36.2 C L 105 H 22 136/97 96 10/25/21 07:42 97 H 22 94 10/25/21 07:40 106 H 22 130/93 10/25/21 07:36 112 H 45 H 138/98 10/25/21 07:35 106 H 52 H 10/25/21 07:30 102 H 10/25/21 07:25 112 H 49 H 127/100 10/25/21 07:20 109 H 39 H 135/98 10/25/21 07:16 117 H 32 H 126/78 10/25/21 07:15 121 H 26 H 10/25/21 07:10 134 H 13 91/74 L 10/25/21 07:08 133 H 16 112/69 10/25/21 07:07 94 H 16 10/25/21 07:05 104 H 16 10/25/21 07:00 84 16 10/25/21 06:57 36.5 C 97 H 16 65/44 L 10/25/21 06:55 105 H 15 Laboratory Results 10/25/21 08:30 Urine Culture - Pending Urine,Clean Catch 10/25/21 07:20 Aerobic Blood Culture - Pending Blood Anaerobic Blood Culture - Pending 10/25/21 07:20 Aerobic Blood Culture - Pending Blood Anaerobic Blood Culture - Pending 10/25/21 10/25/21 10/25/21 Unknown 09:20 09:19 WBC RBC Hgb POC Hgb Hct POC Hct MCV MCH MCHC RDW Std Deviation RDW Coeff of Arsenio Plt Count MPV Immature Gran % (Auto) Neut % (Auto) Lymph % (Auto) [place] % (Auto) Eos % (Auto) Baso % (Auto) Neut # (Auto) Lymph # (Auto) [place] # (Auto) Eos # (Auto) Baso # (Auto) Immature Gran # (Auto) PT INR APTT PTT Ratio POC pH POC pCO2 POC pO2 POC HCO3 POC Base Excess POC ABG O2 Sat POC Sodium Sodium POC Potassium Potassium POC Chloride Chloride Carbon Dioxide POC Total CO2 Anion Gap POC Anion Gap POC BUN BUN Creatinine POC Creatinine Est Cr Clr Drug Dosing Est GFR ( Amer) Est GFR (Non-Af Amer) BUN/Creatinine Ratio Glucose POC Glucose (other) Lactate 9.0 H* Calcium POC Ioniz Calcium Em Magnesium Total Bilirubin AST ALT Alkaline Phosphatase Troponin I Total Protein Albumin Globulin Albumin/Globulin Ratio Urine Color Urine Appearance Urine pH Ur Specific [place] Urine Protein Urine Glucose (UA) Urine Ketones Urine Blood Urine Nitrite Urine Bilirubin Urine Urobilinogen Ur Leukocyte Esterase Urine WBC (Auto) Urine RBC (Auto) U Hyaline Cast (Auto) U Epithel Cells (Auto) Urine Bacteria (Auto) Urine Crystals Calcium Oxalate Crystal Uric Acid Crystals Urine Yeast SARS-CoV-2, RNA, NAAT See Comment NEGATIVE 10/25/21 10/25/21 10/25/21 08:30 07:38 07:20 WBC RBC Hgb POC Hgb 9.9 L Hct POC Hct 29 L MCV MCH MCHC RDW Std Deviation RDW Coeff of Arsenio Plt Count MPV Immature Gran % (Auto) Neut % (Auto) Lymph % (Auto) [place] % (Auto) Eos % (Auto) Baso % (Auto) Neut # (Auto) Lymph # (Auto) [place] # (Auto) Eos # (Auto) Baso # (Auto) Immature Gran # (Auto) PT INR APTT PTT Ratio POC pH 7.01 L* POC pCO2 63 H POC pO2 220 H POC HCO3 16 L POC Base Excess -15.0 L POC ABG O2 Sat 99.0 H POC Sodium 135 Sodium POC Potassium 4.3 Potassium POC Chloride Chloride Carbon Dioxide POC Total CO2 18 L Anion Gap POC Anion Gap POC BUN BUN Creatinine POC Creatinine Est Cr Clr Drug Dosing Est GFR ( Amer) Est GFR (Non-Af Amer) BUN/Creatinine Ratio Glucose POC Glucose (other) Lactate 10.4 H* Calcium POC Ioniz Calcium Em Magnesium Total Bilirubin AST ALT Alkaline Phosphatase Troponin I Total Protein Albumin Globulin Albumin/Globulin Ratio Urine Color Dark Yellow Urine Appearance Turbid A Urine pH 6.5 Ur Specific [place] 1.018 Urine Protein 1+ H Urine Glucose (UA) Negative Urine Ketones Negative Urine Blood 3+ H Urine Nitrite Positive A Urine Bilirubin Negative Urine Urobilinogen Negative Ur Leukocyte Esterase 2+ H Urine WBC (Auto) >30 H Urine RBC (Auto) >30 H U Hyaline Cast (Auto) 0 U Epithel Cells (Auto) 20-30 H Urine Bacteria (Auto) 2+ H Urine Crystals Not Reportable Calcium Oxalate Crystal Present A Uric Acid Crystals Present A Urine Yeast Budding w/ Hyphae A SARS-CoV-2, RNA, NAAT 10/25/21 10/25/21 10/25/21 07:20 07:20 07:20 WBC 12.94 H RBC 3.44 L Hgb 9.7 L POC Hgb Hct 31.8 L POC Hct MCV 92.4 MCH 28.2 MCHC 30.5 L RDW Std Deviation 59.5 H RDW Coeff of Arsenio 17.5 H Plt Count 172 MPV 10.8 H Immature Gran % (Auto) 2.6 Neut % (Auto) 78.0 Lymph % (Auto) 13.7 [place] % (Auto) 5.4 Eos % (Auto) 0.2 Baso % (Auto) 0.1 Neut # (Auto) 10.09 H Lymph # (Auto) 1.77 [place] # (Auto) 0.70 H Eos # (Auto) 0.03 Baso # (Auto) 0.01 Immature Gran # (Auto) 0.34 H PT 16.0 H INR 1.5 H APTT 45.5 H* PTT Ratio 1.7 POC pH POC pCO2 POC pO2 POC HCO3 POC Base Excess POC ABG O2 Sat POC Sodium Sodium 136 POC Potassium Potassium 4.2 POC Chloride Chloride 105 Carbon Dioxide 16 L POC Total CO2 Anion Gap 15 H POC Anion Gap POC BUN BUN 17 Creatinine 0.37 L POC Creatinine Est Cr Clr Drug Dosing Not Reportable Est GFR ( Amer) 112.9 Est GFR (Non-Af Amer) 97.4 BUN/Creatinine Ratio 45.9 H Glucose 189 H POC Glucose (other) Lactate Calcium 7.0 L POC Ioniz Calcium Em Magnesium 2.1 Total Bilirubin 0.6 AST 104 H ALT 43 Alkaline Phosphatase 76 Troponin I 0.22 H* Total Protein 4.7 L Albumin 2.2 L Globulin 2.5 Albumin/Globulin Ratio 0.9 Urine Color Urine Appearance Urine pH Ur Specific [place] Urine Protein Urine Glucose (UA) Urine Ketones Urine Blood Urine Nitrite Urine Bilirubin Urine Urobilinogen Ur Leukocyte Esterase Urine WBC (Auto) Urine RBC (Auto) U Hyaline Cast (Auto) U Epithel Cells (Auto) Urine Bacteria (Auto) Urine Crystals Calcium Oxalate Crystal Uric Acid Crystals Urine Yeast SARS-CoV-2, RNA, NAAT 10/25/21 07:18 WBC RBC Hgb POC Hgb 11.9 L Hct POC Hct 35 L MCV MCH MCHC RDW Std Deviation RDW Coeff of Arsenio Plt Count MPV Immature Gran % (Auto) Neut % (Auto) Lymph % (Auto) [place] % (Auto) Eos % (Auto) Baso % (Auto) Neut # (Auto) Lymph # (Auto) [place] # (Auto) Eos # (Auto) Baso # (Auto) Immature Gran # (Auto) PT INR APTT PTT Ratio POC pH POC pCO2 POC pO2 POC HCO3 POC Base Excess POC ABG O2 Sat POC Sodium 138 Sodium POC Potassium 5.6 H Potassium POC Chloride 103 Chloride Carbon Dioxide POC Total CO2 24 Anion Gap POC Anion Gap 17.0 POC BUN 24 H BUN Creatinine POC Creatinine 0.4 L Est Cr Clr Drug Dosing Est GFR ( Amer) Est GFR (Non-Af Amer) BUN/Creatinine Ratio Glucose POC Glucose (other) 134 H Lactate Calcium POC Ioniz Calcium Em 1.16 Magnesium Total Bilirubin AST ALT Alkaline Phosphatase Troponin I Total Protein Albumin Globulin Albumin/Globulin Ratio Urine Color Urine Appearance Urine pH Ur Specific [place] Urine Protein Urine Glucose (UA) Urine Ketones Urine Blood Urine Nitrite Urine Bilirubin Urine Urobilinogen Ur Leukocyte Esterase Urine WBC (Auto) Urine RBC (Auto) U Hyaline Cast (Auto) U Epithel Cells (Auto) Urine Bacteria (Auto) Urine Crystals Calcium Oxalate Crystal Uric Acid Crystals Urine Yeast SARS-CoV-2, RNA, NAAT Diagnostic Findings Chest X-Ray 10/25/21 07:02 XR chest 1V portable CLINICAL HISTORY: SEPSIS TECHNIQUE: Single frontal radiograph of the chest was obtained. Comparison: Comparison is made to chest one view 10/28/2019 FINDINGS: Endotracheal tube is seen with the tip approximately 1 cm from the laron. Right venous catheter tip is in the lower SVC. Cardiomegaly is noted. Calcified aortic arch is seen. Multifocal airspace opacities are seen. Interstitial thickening is seen. No evidence of pleural effusion or pneumothorax. IMPRESSION: 1. Multifocal airspace opacities may represent atelectasis, pneumonia, and/or aspiration. 2. The endotracheal tube tip is 1 cm from the laron and can be withdrawn approximately 2 cm for improved positioning. ACT 112: Negative or not required by law. Electronically signed by: Stephan Benedict M.D. 10/25/2021 8:19 AM Abdomen/Pelvis CT 10/25/21 07:[address] WITH IV CONTRAST CT DOSE: HISTORY: Status post cardiac arrest. TECHNIQUE: Multiaxial CT images of the abdomen and pelvis were performed following the use of intravenous contrast. A dose lowering technique was utilized adhering to the principles of ALARA. COMPARISON STUDY: Pelvis CT 09/27/2012. FINDINGS: Severe compression deformity at L1 with 5 mm of retropulsion and m oderate to severe central canal narrowing. This is likely chronic. There is an old mild superior endplate compression deformity at L3 and a subacute to chronic mild superior endplate compression deformity at L5. Nondisplaced acute bilateral rib fractures. There is an acute nondisplaced sternal fracture. Bibasilar consolidation most pronounced within the left lower lobe. There is near complete opacification of the left lower lobe bronchi. This could be due to aspiration. Trace bilateral pleural effusions. There is a left total arthroplasty. Right pubic ring deformity likely represent old, healed fractures. Resorption of the right femoral head which is chronic. Bony destruction involving the mid sacrum with focal area of expansion on the left side of the sacrum measuring 2.1 cm. This is nonspecific could be due to old postoperative change, osteomyelitis, or less likely underlying sacral lesion. There is diffuse body wall edema. The liver, spleen, adrenal glands, pancreas are unremarkable. Bilateral cortical renal scarring. No hydronephrosis. The main portal vein is patent. Normal caliber abdominal aorta. A rectal catheter and Aldana catheter. Good position. Large amount well-formed stool within the distal colon and rectum. This includes a 9.4 cm rectal stool ball. The bladder is decompressed by a Aldana catheter. Mildly distended gas and fluid-filled loops of small bowel. This favors an ileus. No transition point to suggest a bowel obstruction. Suboptimal evaluation for bowel pathology due to the lack of intraperitoneal fat. However, there is no definite bowel wall thickening. Normal gallbladder. IMPRESSION: 1. Nondisplaced acute anterior bilateral rib fractures and a nondisplaced midsternal fracture. 2. Consolidation within the left lower lobe with near complete opacification of the left lower lobe bronchi. This could be due to aspiration. 3. Mildly dilated gas and fluid-filled loops of stomach and small bowel. This favors an ileus. No evidence for bowel obstruction. 4. Large amount well-formed stool within the distal colon and rectum including a 9.4 cm rectal stool ball. 5. Diffuse body wall edema. 6. Bony destruction involving the mid sacrum with focal area of expansion on the left side of the sacrum measuring 2.1 cm. This is nonspecific could be due to old postoperative change, osteomyelitis, or less likely underlying sacral lesion. Clinical correlation recommended. 7. Additional findings as described above. ACT 112: Negative or not required by law. Electronically signed by: Sunil Hutton M.D. 10/25/2021 9:44 AM Chest CTA 10/25/21 07:35 CT angio chest PE protocol CLINICAL HISTORY: post arrest TECHNIQUE: Multidetector row helical CT of the chest was performed with angiographic protocol. Coronal and sagittal reformations were obtained. Coronal and sagittal MIPS were obtained from the axial data set and were submitted for review. Automated dose lowering techniques and/or adjustment according to patient size were utilized for this exam. Comparison: None available at the time of this dictation. FINDINGS: Lungs and pleura: Small bilateral pleural effusions are seen with underlying atelectasis. Diffuse groundglass and consolidative opacities are seen. Heart and pericardium: Cardiomegaly is seen with biatrial enlargement. Vessels: Moderate atherosclerotic changes in the aorta and coronary arteries. No evidence of pulmonary embolism. Mediastinum and nilda: Unremarkable. Chest wall and lower neck: Unremarkable. Abdomen: Unremarkable. Bones: Unremarkable. IMPRESSION: 1. No evidence of pulmonary embolism. 2. Diffuse groundglass and consolidative opacities may represent pneumonia, aspiration, or contusion in this patient status post arrest. 3. Small bilateral pleural effusions. ACT 112: Negative or not required by law. Electronically signed by: Stephan Benedict M.D. 10/25/2021 9:[address] 10/25/21 07:35 CT head/brain wo con CLINICAL HISTORY: 86 years-old Female with post arrest. Acute cardiac arrest TECHNIQUE: Multiple axial CT images of the head were obtained without contrast. A dose lowering technique was utilized adhering to the principles of ALARA. CT DOSE: 1165.81 mGy.cm COMPARISON: Head CT 10/26/2019 FINDINGS: No acute intracranial hemorrhage, midline shift, intracranial mass, hydrocephalus, or abnormal extra-axial collection. Age-related involutional changes. White matter hypodensities suggest chronic microvascular ischemic disease. Cerebral vascular calcifications. Encephalomalacia from chronic right temporal parietal infarct. The study is mildly motion degraded. Calcifications of the falx cerebri. There is diffuse blurring of the freed-white interface. The calvarium is intact. Mastoid air cells are clear. Moderate sized left maxillary sinus air-fluid level with layering secretions within the nasopharynx. Mild mucosal thickening of the ethmoid air cells. Prior bilateral lens repair. Mild diffuse subcutaneous edema. IMPRESSION: 1. Motion degraded exam. 2. There is diffuse blurring of the freed-white interface suspicious for cerebral edema. No midline shift or herniation. 3. Chronic right MCA territory infarct. ACT 112: Negative or not required by law. The above report was generated using voice recognition software. It may contain grammatical, syntax or spelling errors. Electronically signed by: Chris Bailey M.D. 10/25/2021 9:10 AM ECG Additional Comments: Atrial fibrillation Low voltage QRS ST & T wave abnormality, consider anterolateral ischemia Prolonged QT Abnormal ECG When compared with ECG of 30-JUL-2018 02:10, Significant changes have occurred 25mm/s10mm/[id number] 241CID: [id number] by: REFERRED SELF Unconfirmed Vent. rate 97 BPM RI interval * ms QRS duration 82 ms QT/QTc 424/538 ms (1) Osteomyelitis Osteomyelitis location: other site Osteomyelitis type: unspecified type Qualified Code(s): M86.9 - Osteomyelitis, unspecified
[2021-10-25] MEDS ORDERED: VANCOMYCIN HCL 1,250 MG in SODIUM CHLORIDE 0.9% 500 ML IV ONE (09:53)
[2021-10-25] MEDS ORDERED: VANCOMYCIN CONSULT ACTIVE PRN (09:53)
[2021-10-25] MEDS ORDERED: HEPARIN SOD 5,000 UNIT/0.5 ML VIAL SQ ONE (14:00)
--- NOTE | 2021-10-25 15:08 | Critical Care Consultation ---
Date of Consultation October 25, 2021 Assessment & Plan (1) Cardiac arrest: (2) Anoxic brain injury: Impression: 86-year-old female with multiple sclerosis, sacral decubitus ulcers, and bedbound status admitted with out of hospital PEA arrest. She has profound lactic acidosis and hemodynamic instability and early loss of freed- white matter interface on her CT scan. Her neurological exam would be consistent with severe anoxic injury. She is unlikely to recover from this. Recommendations: 1. Extensive discussion with the son was held. He understands that we are prolonging her dying process. He is attempting to contact his brother who lives in [place]. I advised them that I would not recommend continued aggressive care at this point time as it is unlikely to change the outcome and we may actually be prolonging the patient's dying process. He states that he understands this and is in agreement to not pursue any escalation of care. He is on his way back to the hospital. Anticipate that once he arrives, we will transition the patient to full comfort measures with terminal extubation and discontinuation of vasopressor agents. I advised the patient son that I cannot guarantee that she would remain alive as she is very unstable currently and is at risk for imminent . He expressed understanding and is agreement. A total of 50 minutes in critical care time including end-of-life discussion managing this critically ill patient with significant probability of History of Present Illness Attending Physician: Bar Menard MD History of Present Illness Asked by hospitalist to assist in evaluation management this patient with out of hospital cardiac arrest, lactic acidosis, likely anoxic brain injury, and hemodynamic instability. Patient is intubated and unable to provide any history. EMR was reviewed. Discussed with patient's son who is primary caregiver. Patient is an 86-year-old female with a history of atrial fibrillation and multiple sclerosis who is chronically bedbound. She has sacral decubitus ulcers. She was brought to the emergency room after the son noticed witnessed apnea. He attempted compressions and called 911. EMS arrived and found the patient to be in PEA. She received epinephrine and CPR as well as intubation. She had return of circulation. She was brought to the emergency room and re ceived 2 additional doses of IV epinephrine. She was fixed and dilated. His CT in the emergency room showed loss of freed-white matter interface. There was initial discussion about appropriateness of continued care. Apparently these were had with the admitting hospitalist and with the son. He indicated that he was not ready to pursue comfort measures at this time and the patient was admitted to the ICU. We will consulted for additional evaluation and management. I contacted Celestino by phone. He understands that this is a terminal event. He understands that we are prolonging his mother is dying process. He was hopeful that there may be some improvement. I advised that given her metabolic abnormalities, her changes noted on CT scan, and fixed and dilated pupils off sedation, the likelihood of any significant functional recovery at this point time was close to 0. In addition the patient had a poor functional status at baseline and it would be unlikely that we would get her back to her poor functional status. He expressed understanding. He is on the way back to the hospital. He understands that we should pursue termination of resuscitative efforts and allow his mother to peacefully. Allergies Allergy/AdvReac Type Severity Reaction Status Date / Time nitrofurantoin Allergy Severe FEVER Verified 10/25/21 08:32 ceftriaxone Allergy Mild Unknown Verified 10/25/21 08:32 Penicillins Allergy Mild Unknown Verified 10/25/21 08:32 sulbactam Allergy Mild Unknown Verified 10/25/21 08:32 clavulanic acid Allergy Unknown "BETA-LACTAMASE Verified 10/25/21 08:32 INHIBITORS" ALLERGY clindamycin Allergy Unknown RASH Verified 10/25/21 08:32 rifampin Allergy Unknown POSSIBLE Verified 10/25/21 08:32 DRUG FEVER sulfamethoxazole Allergy Unknown RASH/HIVES Verified 10/25/21 08:32 tazobactam Allergy Unknown "BETA-LACTAMASE Verified 10/25/21 08:32 INHIBITORS" ALLERGY trimethoprim Allergy Unknown RASH/HIVES Verified 10/25/21 08:32 Home Medications Medication Instructions Recorded Confirmed Type amitriptyline 10 mg tablet 20 mg PO HS 07/30/18 10/25/21 History aspirin 81 mg tablet,delayed 81 mg PO DAILY 07/30/18 10/25/21 History release baclofen 10 mg tablet 20 mg PO QID 07/30/18 10/25/21 History levothyroxine 50 mcg tablet 50 mcg PO DAILYBB 07/30/18 10/25/21 History metoprolol tartrate 25 mg tablet 12.5 mg PO BID 07/30/18 10/25/21 History polyethylene glycol 3350 17 17 g PO DAILY PRN 07/30/18 10/25/21 History gram/dose oral powder (Miralax) lorazepam 1 mg tablet (Ativan) 1 mg PO BID PRN 07/31/18 10/25/21 History calcium carbonate 600 mg-vitamin 1 tab PO DAILY 10/26/19 10/25/21 History D3 20 mcg (800 unit) tablet (Caltrate with Vitamin D3) hydromorphone 4 mg tablet 4 mg PO Q3H PRN 10/26/19 10/25/21 History (Dilaudid) ferrous sulfate 325 mg (65 mg 325 mg PO BID 03/28/21 10/25/21 History iron) tablet [id number] 0.4 mg-calcium 162 1 tab PO DAILY 03/28/21 10/25/21 History mg-iron 18 ya-[id number] tablet levofloxacin 500 mg tablet 500 mg PO DAILY 08/01/21 10/25/21 History Patient History Medical History (Updated 10/25/21 @ 11:09 by Alona Olivarez PA-C) Acute CVA (cerebrovascular accident) GERD (gastroesophageal reflux disease) History of hepatitis Mitral regurgitation Multiple sclerosis Osteomyelitis Permanent atrial fibrillation Sacral decubitus ulcer, stage III Surgical History H/O cystoscopy S/P hysterectomy (Unknown) S/P tonsillectomy (Unknown) Family History Other Family history non-contributory Social History Smoking Status: Unknown if ever smoked Hx Alcohol Use: No Hx Substance Use: No Preferred Language: Icelandic Communication Ability: Effective Jewel Inspector Required: No Beliefs That Will Affect Care: None marital status: / Current Living Situation: Family Current Living Situation Comment: anurag mejias is primary caregiver, HH 2x/wk for bathing, RN 1x/wk well visits Feels Safe at Home: Yes Assistive Devices: None Review of Systems Review of Systems: Unobtainable due to reduced consciousness Physical Exam Physical Exam: General: No sedation. Intubated Head: Normocephalic, atraumatic ENT: no pupil reflex, pupils are fixed and dilated. No corneal reflex. Chest: Diffuse coarse breath sounds on intubation and secretions Cardiac: Regular rate and rhythm, no murmur, no JVD, weak peripheral pulses Abdominal: NABS x 4 quadrants, soft, nondistended, aldana catheter in place Extremities: Diffuse atrophy, ecchymosis of the lower extremities and feet are blue, + peripheral edema of feet bilaterally, no erythema Psych: Normal mood and affect Neuro: Intubated. No withdrawal to painful stimulus. Not overbreathing the ventilator. Results & Data Results & Data ([facility]) Vital Signs (Past 12 Hours) Vital Signs Temp Pulse Resp BP Pulse Ox 10/25/21 13:51 35.8 C L 93 H 22 87/61 L 88 L 10/25/21 13:40 35.7 C L 104 H 22 80/61 L 91 10/25/21 13:30 35.7 C L 102 H 22 82/60 L 92 10/25/21 13:20 35.7 C L 100 H 22 90/63 L 93 10/25/21 13:00 35.7 C L 101 H 22 101/69 87 L 10/25/21 12:57 22 10/25/21 12:53 35.7 C L 99 H 22 101/68 70 L 10/25/21 12:50 35.8 C L 96 H 22 93/74 L 72 L 10/25/21 12:44 35.8 C L 103 H 22 94/74 L 88 L 10/25/21 12:30 35.7 C L 92 H 22 88/65 L 87 L 10/25/21 12:00 35.7 C L 104 H 22 92/66 L 85 L 10/25/21 11:45 94 H 22 90 10/25/21 11:30 35.3 C L 94 H 22 92/73 L 91 10/25/21 11:25 35.3 C L 99 H 22 84/67 L 92 10/25/21 11:20 35.3 C L 95 H 22 102/74 92 10/25/21 11:15 35.2 C L 94 H 22 93/75 L 91 10/25/21 11:10 35.2 C L 93 H 22 95/75 L 92 10/25/21 11:05 35.1 C L 104 H 22 100/69 92 10/25/21 11:04 97 H 22 91 10/25/21 11:00 35.1 C L 95 H 22 106/68 92 10/25/21 10:55 35.1 C L 98 H 22 107/66 92 10/25/21 10:50 35.0 C L 99 H 22 99/78 L 92 10/25/21 10:45 35.0 C L 93 H 22 99/74 L 93 10/25/21 10:40 35.0 C L 90 22 93/78 L 92 10/25/21 10:35 34.9 C L 98 H 22 101/78 92 10/25/21 10:30 34.9 C L 93 H 22 99/81 L 92 10/25/21 10:25 34.9 C L 96 H 22 96/72 L 92 10/25/21 10:20 34.9 C L 88 22 101/78 91 10/25/21 10:15 34.8 C L 95 H 23 100/75 92 10/25/21 10:10 34.8 C L 95 H 22 104/79 92 10/25/21 10:05 34.8 C L 94 H 22 101/78 93 10/25/21 10:04 34.8 C L 94 H 23 92 10/25/21 10:00 34.8 C L 90 22 107/79 92 10/25/21 09:55 34.8 C L 89 22 110/80 93 10/25/21 09:50 34.8 C L 101 H 22 108/82 93 10/25/21 09:45 34.8 C L 89 22 112/84 93 10/25/21 09:40 34.8 C L 90 22 109/82 94 10/25/21 09:35 34.8 C L 95 H 22 115/87 93 10/25/21 09:30 34.8 C L 90 22 103/79 92 10/25/21 09:25 34.8 C L 93 H 22 83/66 L 92 10/25/21 09:20 34.8 C L 90 22 87/64 L 91 10/25/21 09:15 34.8 C L 99 H 22 103/80 92 10/25/21 09:10 34.7 C L 100 H 22 124/84 94 10/25/21 09:09 34.8 C L 10/25/21 09:05 34.8 C L 95 H 23 128/90 93 10/25/21 09:03 34.8 C L 90 22 128/91 96 10/25/21 09:00 92 H 22 10/25/21 08:35 35.1 C L 101 H 22 115/85 94 10/25/21 08:30 35.2 C L 102 H 22 129/88 94 10/25/21 08:25 35.2 C L 95 H 22 133/92 95 10/25/21 08:20 35.3 C L 105 H 22 119/95 93 10/25/21 08:15 35.4 C L 93 H 22 138/90 94 10/25/21 08:10 35.5 C L 99 H 22 130/92 96 10/25/21 08:05 35.6 C L 103 H 22 135/86 93 10/25/21 08:00 35.7 C L 103 H 22 139/80 100 10/25/21 07:55 35.9 C L 107 H 22 142/92 H 100 10/25/21 07:50 36.1 C L 109 H 22 139/99 99 10/25/21 07:45 36.2 C L 105 H 22 136/97 96 10/25/21 07:42 97 H 22 94 10/25/21 07:40 106 H 22 130/93 10/25/21 07:36 112 H 45 H 138/98 10/25/21 07:35 106 H 52 H 10/25/21 07:30 102 H 10/25/21 07:25 112 H 49 H 127/100 10/25/21 07:20 109 H 39 H 135/98 10/25/21 07:16 117 H 32 H 126/78 10/25/21 07:15 121 H 26 H 10/25/21 07:10 89 16 91/74 L 99 10/25/21 07:08 133 H 16 112/69 10/25/21 07:07 94 H 16 10/25/21 07:05 104 H 16 10/25/21 07:00 84 16 10/25/21 06:57 36.5 C 97 H 16 65/44 L 10/25/21 06:55 105 H 15 Critical Care Results & Data Vital Signs (Past 12 Hours) Vital Signs Temp Pulse Resp BP Pulse Ox 10/25/21 13:51 35.8 C L 93 H 22 87/61 L 88 L 10/25/21 13:40 35.7 C L 104 H 22 80/61 L 91 10/25/21 13:30 35.7 C L 102 H 22 82/60 L 92 10/25/21 13:20 35.7 C L 100 H 22 90/63 L 93 10/25/21 13:00 35.7 C L 101 H 22 101/69 87 L 10/25/21 12:57 22 10/25/21 12:53 35.7 C L 99 H 22 101/68 70 L 10/25/21 12:50 35.8 C L 96 H 22 93/74 L 72 L 10/25/21 12:44 35.8 C L 103 H 22 94/74 L 88 L 10/25/21 12:30 35.7 C L 92 H 22 88/65 L 87 L 10/25/21 12:00 35.7 C L 104 H 22 92/66 L 85 L 10/25/21 11:45 94 H 22 90 10/25/21 11:30 35.3 C L 94 H 22 92/73 L 91 10/25/21 11:25 35.3 C L 99 H 22 84/67 L 92 10/25/21 11:20 35.3 C L 95 H 22 102/74 92 10/25/21 11:15 35.2 C L 94 H 22 93/75 L 91 10/25/21 11:10 35.2 C L 93 H 22 95/75 L 92 10/25/21 11:05 35.1 C L 104 H 22 100/69 92 10/25/21 11:04 97 H 22 91 10/25/21 11:00 35.1 C L 95 H 22 106/68 92 10/25/21 10:55 35.1 C L 98 H 22 107/66 92 10/25/21 10:50 35.0 C L 99 H 22 99/78 L 92 10/25/21 10:45 35.0 C L 93 H 22 99/74 L 93 10/25/21 10:40 35.0 C L 90 22 93/78 L 92 10/25/21 10:35 34.9 C L 98 H 22 101/78 92 10/25/21 10:30 34.9 C L 93 H 22 99/81 L 92 10/25/21 10:25 34.9 C L 96 H 22 96/72 L 92 10/25/21 10:20 34.9 C L 88 22 101/78 91 10/25/21 10:15 34.8 C L 95 H 23 100/75 92 10/25/21 10:10 34.8 C L 95 H 22 104/79 92 10/25/21 10:05 34.8 C L 94 H 22 101/78 93 10/25/21 10:04 34.8 C L 94 H 23 92 10/25/21 10:00 34.8 C L 90 22 107/79 92 10/25/21 09:55 34.8 C L 89 22 110/80 93 10/25/21 09:50 34.8 C L 101 H 22 108/82 93 10/25/21 09:45 34.8 C L 89 22 112/84 93 10/25/21 09:40 34.8 C L 90 22 109/82 94 10/25/21 09:35 34.8 C L 95 H 22 115/87 93 10/25/21 09:30 34.8 C L 90 22 103/79 92 10/25/21 09:25 34.8 C L 93 H 22 83/66 L 92 10/25/21 09:20 34.8 C L 90 22 87/64 L 91 10/25/21 09:15 34.8 C L 99 H 22 103/80 92 10/25/21 09:10 34.7 C L 100 H 22 124/84 94 10/25/21 09:09 34.8 C L 10/25/21 09:05 34.8 C L 95 H 23 128/90 93 10/25/21 09:03 34.8 C L 90 22 128/91 96 10/25/21 09:00 92 H 22 10/25/21 08:35 35.1 C L 101 H 22 115/85 94 10/25/21 08:30 35.2 C L 102 H 22 129/88 94 10/25/21 08:25 35.2 C L 95 H 22 133/92 95 10/25/21 08:20 35.3 C L 105 H 22 119/95 93 10/25/21 08:15 35.4 C L 93 H 22 138/90 94 10/25/21 08:10 35.5 C L 99 H 22 130/92 96 10/25/21 08:05 35.6 C L 103 H 22 135/86 93 10/25/21 08:00 35.7 C L 103 H 22 139/80 100 10/25/21 07:55 35.9 C L 107 H 22 142/92 H 100 10/25/21 07:50 36.1 C L 109 H 22 139/99 99 10/25/21 07:45 36.2 C L 105 H 22 136/97 96 10/25/21 07:42 97 H 22 94 10/25/21 07:40 106 H 22 130/93 10/25/21 07:36 112 H 45 H 138/98 10/25/21 07:35 106 H 52 H 10/25/21 07:30 102 H 10/25/21 07:25 112 H 49 H 127/100 10/25/21 07:20 109 H 39 H 135/98 10/25/21 07:16 117 H 32 H 126/78 10/25/21 07:15 121 H 26 H 10/25/21 07:10 89 16 91/74 L 99 10/25/21 07:08 133 H 16 112/69 10/25/21 07:07 94 H 16 10/25/21 07:05 104 H 16 10/25/21 07:00 84 16 10/25/21 06:57 36.5 C 97 H 16 65/44 L 10/25/21 06:55 105 H 15 Lab & Micro Results (Past 24 Hours) RBC 3.44 M/uL (4.2-5.4) L 10/25/21 WBC 12.94 K/uL (4.8-10.8) H 10/25/21 Hgb 9.7 g/dL (12.0-16.0) L 10/25/21 Hct 31.8 % (37-47) L 10/25/21 MCV 92.4 fL (80-100) 10/25/21 MCH 28.2 pg (25-34) 10/25/21 MCHC 30.5 g/dL (32-36) L 10/25/21 RDW Standard Deviation 59.5 fL (36.4-46.3) H 10/25/21 RDW Coefficient of Variation 17.5 % (11.5-14.5) H 10/25/21 Plt Count 172 K/uL (130-400) 10/25/21 MPV 10.8 fL (7.4-10.4) H 10/25/21 Neutrophils (%) (Auto) 78.0 % 10/25/21 Lymphocytes (%) (Auto) 13.7 % 10/25/21 Monocytes # (Auto) 0.70 K/uL (0.11-0.59) H 10/25/21 Eosinophils # (Auto) 0.03 K/uL (0-0.5) 10/25/21 Immature Granulocyte % (Auto) 2.6 % 10/25/21 Neutrophils # (Auto) 10.09 K/uL (1.4-6.5) H 10/25/21 Lymphocytes # (Auto) 1.77 K/uL (1.2-3.4) 10/25/21 Monocytes # (Auto) 0.70 K/uL (0.11-0.59) H 10/25/21 Eosinophils # (Auto) 0.03 K/uL (0-0.5) 10/25/21 Basophils # (Auto) 0.01 K/uL (0-0.2) 10/25/21 Immature Granulocyte # (Auto) 0.34 K/uL (0.00-0.02) H 10/25/21 Na 136 mmol/L (136-145) 10/25/21 K 4.2 mmol/L (3.5-5.1) 10/25/21 Cl 105 mmol/L (98-107) 10/25/21 CO2 16 mmol/L (21-32) L 10/25/21 Anion Gap 15 (3-11) H 10/25/21 BUN 17 mg/dl (6-23) 10/25/21 Creatinine 0.37 mg/dl (0.6-1.2) L 10/25/21 Estimated GFR ( Amer) 112.9 ml/min 10/25/21 Estimated GFR (Non-Af Amer) 97.4 ml/min 10/25/21 BUN/Creatinine Ratio 45.9 (10-20) H 10/25/21 Glu 189 mg/dl (70-99(Fasting)) H 10/25/21 Ca 7.0 mg/dl (8.5-10.1) L 10/25/21 Total Bilirubin 0.6 mg/dl (0.2-1.0) 10/25/21 AST 104 U/L (13-39) H 10/25/21 ALT 43 U/L (7-52) 10/25/21 Alkaline Phosphatase 76 U/L (34-104) 10/25/21 TP 4.7 gm/dl (6.0-8.3) L 10/25/21 Albumin 2.2 gm/dl (3.4-5.0) L 10/25/21 Globulin 2.5 gm/dl (2.5-4.0) 10/25/21 Albumin/Globulin Ratio 0.9 (0.9-2) 10/25/21 Mg 2.1 mg/dl (1.7-2.4) 10/25/21 07:20 10/25/21 Calcium Level 7.0 mg/dl (8.5-10.1) L 10/25/21 07:20 10/25/21 Prothromb Time International Ratio 1.5 (0.9-1.1) H 10/25/21 07:20 10/25/21 Diagnostic Findings (Past 24 Hours) Chest X-Ray 10/25/21 07:02 XR chest 1V portable CLINICAL HISTORY: SEPSIS TECHNIQUE: Single frontal radiograph of the chest was obtained. Comparison: Comparison is made to chest one view 10/28/2019 FINDINGS: Endotracheal tube is seen with the tip approximately 1 cm from the laron. Right venous catheter tip is in the lower SVC. Cardiomegaly is noted. Calcified aortic arch is seen. Multifocal airspace opacities are seen. Interstitial thickening is seen. No evidence of pleural effusion or pneumothorax. IMPRESSION: 1. Multifocal airspace opacities may represent atelectasis, pneumonia, and/or aspiration. 2. The endotracheal tube tip is 1 cm from the laron and can be withdrawn approximately 2 cm for improved positioning. ACT 112: Negative or not required by law. Electronically signed by: Stephan Benedict M.D. 10/25/2021 8:19 AM Abdomen/Pelvis CT 10/25/21 07:[address] WITH IV CONTRAST CT DOSE: HISTORY: Status post cardiac arrest. TECHNIQUE: Multiaxial CT images of the abdomen and pelvis were performed follo wing the use of intravenous contrast. A dose lowering technique was utilized adhering to the principles of ALARA. COMPARISON STUDY: Pelvis CT 09/27/2012. FINDINGS: Severe compression deformity at L1 with 5 mm of retropulsion and moderate to severe central canal narrowing. This is likely chronic. There is an old mild superior endplate compression deformity at L3 and a subacute to chronic mild superior endplate compression deformity at L5. Nondisplaced acute bilateral rib fractures. There is an acute nondisplaced sternal fracture. Bibasilar cons olidation most pronounced within the left lower lobe. There is near complete opacification of the left lower lobe bronchi. This could be due to aspiration. Trace bilateral pleural effusions. There is a left total arthroplasty. Right pubic ring deformity likely represent old, healed fractures. Resorption of the right femoral head which is chronic. Bony destruction involving the mid sacrum with focal area of expansion on the left side of the sacrum measuring 2.1 cm. This is nonspecific could be due to old postoperative change, osteomyelitis, or less likely underlying sacral lesion. There is diffuse body wall edema. The liver, spleen, adrenal glands, pancreas are unremarkable. Bilateral cortical renal scarring. No hydronephrosis. The main portal vein is patent. Normal caliber abdominal aorta. A rectal catheter and Aldana catheter. Good position. Large amount well-formed stool within the distal colon and rectum. This includes a 9.4 cm rectal stool ball. The bladder is decompressed by a Aldana catheter. Mildly distended gas and fluid-filled loops of small bowel. This favors an ileus. No transition point to suggest a bowel obstruction. Suboptimal evaluation for bowel pathology due to the lack of intraperitoneal fat. However, there is no definite bowel wall thickening. Normal gallbladder. IMPRESSION: 1. Nondisplaced acute anterior bilateral rib fractures and a nondisplaced midsternal fracture. 2. Consolidation within the left lower lobe with near complete opacification of the left lower lobe bronchi. This could be due to aspiration. 3. Mildly dilated gas and fluid-filled loops of stomach and small bowel. This favors an ileus. No evidence for bowel obstruction. 4. Large amount well-formed stool within the distal colon and rectum including a 9.4 cm rectal stool ball. 5. Diffuse body wall edema. 6. Bony destruction involving the mid sacrum with focal area of expansion on the left side of the sacrum measuring 2.1 cm. This is nonspecific could be due to old postoperative change, osteomyelitis, or less likely underlying sacral lesion. Clinical correlation recommended. 7. Additional findings as described above. ACT 112: Negative or not required by law. Electronically signed by: Sunil Hutton M.D. 10/25/2021 9:44 AM Chest CTA 10/25/21 07:35 CT angio chest PE protocol CLINICAL HISTORY: post arrest TECHNIQUE: Multidetector row helical CT of the chest was performed with angiographic protocol. Coronal and sagittal reformations were obtained. Coronal and sagittal MIPS were obtained from the axial data set and were submitted for review. Automated dose lowering techniques and/or adjustment according to patient size were utilized for this exam. Comparison: None available at the time of this dictation. FINDINGS: Lungs and pleura: Small bilateral pleural effusions are seen with underlying atelectasis. Diffuse groundglass and consolidative opacities are seen. Heart and pericardium: Cardiomegaly is seen with biatrial enlargement. Vessels: Moderate atherosclerotic changes in the aorta and coronary arteries. No evidence of pulmonary embolism. Mediastinum and nilda: Unremarkable. Chest wall and lower neck: Unremarkable. Abdomen: Unremarkable. Bones: Unremarkable. IMPRESSION: 1. No evidence of pulmonary embolism. 2. Diffuse groundglass and consolidative opacities may represent pneumonia, aspiration, or contusion in this patient status post arrest. 3. Small bilateral pleural effusions. ACT 112: Negative or not required by law. Electronically signed by: Stephan Benedict M.D. 10/25/2021 9:[address] 10/25/21 07:35 CT head/brain wo con CLINICAL HISTORY: 86 years-old Female with post arrest. Acute cardiac arrest TECHNIQUE: Multiple axial CT images of the head were obtained without contrast. A dose lowering technique was utilized adhering to the principles of ALARA. CT DOSE: 1165.81 mGy.cm COMPARISON: Head CT 10/26/2019 FINDINGS: No acute intracranial hemorrhage, midline shift, intracranial mass, hydrocephalus, or abnormal extra-axial collection. Age-related involutional changes. White matter hypodensities suggest chronic microvascular ischemic disease. Cerebral vascular calcifications. Encephalomalacia from chronic right temporal parietal infarct. The study is mildly motion degraded. Calcifications of the falx cerebri. There is diffuse blurring of the freed-white interface. The calvarium is intact. Mastoid air cells are clear. Moderate sized left maxillary sinus air-fluid level with layering secretions within the nasopharynx. Mild mucosal thickening of the ethmoid air cells. Prior bilateral lens repair. Mild diffuse subcutaneous edema. IMPRESSION: 1. Motion degraded exam. 2. There is diffuse blurring of the freed-white interface suspicious for cerebral edema. No midline shift or herniation. 3. Chronic right MCA territory infarct. ACT 112: Negative or not required by law. The above report was generated using voice recognition software. It may contain grammatical, syntax or spelling errors. Electronically signed by: Chris Bailey M.D. 10/25/2021 9:10 AM I & O Totals 24 Hours 10/24/21 10/25/21 10/26/21 06:59 06:59 06:59 Intake Total 3023.326 / 3023.326 Output Total 250 / 250 Balance 2773.326 / 2773.326 Cumulative 10/25/21 06:26 thru 10/25/21 13:59 Intake Total 3023.326 Output Total 250 Balance 2773.326 RT Ventilator Mngmt (Last Documented) Ventilator Ordered Settings Ventilator Support Mode Assist Control 10/25/21 12:57 Respiratory Rate 22 10/25/21 13:51 Ventilator Tidal Volume 300 10/25/21 12:57 Setting Minute Ventilation 6.6 10/25/21 11:45 Positive End Expiratory 10 10/25/21 12:57 Pressure Fraction of Inspired Oxygen 100 10/25/21 12:57 Peak Inspiratory Flow 24 10/25/21 11:45 Machine Comment Changes made post desaturation 10/25/21 12:57 episode Ventilator - PT Measurements Respiratory Rate 22 Exhaled Tidal Volume 301 Minute Ventilation 6.6 Peak Inspiratory Airway 28 Pressure Plateau Pressure 23.2 Respiratory Cycle Inspiratory: 1:1.7 Expiratory Ratio Inspiratory Phase Time 1.0 End-Tidal CO2 20 Static Lung Compliance 22.80 Dynamic Lung Compliance 16.72 Normal Static Lung Compliance 45.00 Patient Measurements Comment Patient Arrived to ICU from ER at this time Coding Level of Care Code Critical Care 1st 30-74 mins Diagnoses Cardiac arrest I46.9 Anoxic brain injury G93.1 Time Spent (min) 50
--- NOTE | 2021-10-25 15:48 | Electrocardiogram Report ---
Test Reason : Blood Pressure : / mmHG Vent. Rate : 097 BPM Atrial Rate : 092 BPM P-R Int : 000 ms QRS Dur : 082 ms QT Int : 424 ms P-R-T Axes : 000 045 -61 degrees QTc Int : 538 ms Atrial fibrillation Low voltage QRS Non-specific intra-ventricular conduction delay Diffuse Nonspecific ST and T wave abnormality Prolonged QT Abnormal ECG When compared with ECG of 30-JUL-2018 02:10, Non-specific intra-ventricular conduction delay now present Atrial flutter no longer present Confirmed by Nehemias Yeager ([id number]) on 10/25/2021 3:48:21 PM Referred By: REFERRED SELF Confirmed By:Nehemias Yeager
[2021-10-25] MEDS ORDERED: LORazepam 0.5 MG TAB PO PRN (15:55)
[2021-10-25] MEDS ORDERED: LORazepam 2 MG/1 ML VIAL IV PRN (15:55)
[2021-10-25] MEDS ORDERED: ONDANSETRON 4 MG OD TAB SL PRN (15:55)
[2021-10-25] MEDS ORDERED: MoRPHine SULFATE 2 MG/ML CARP IV PRN (15:55)
[2021-10-25] MEDS ORDERED: GLYCOPYRROLATE 0.2 MG/ML VIAL IV PRN (15:55)
[2021-10-25] MEDS ORDERED: ONDANSETRON INJ 2 MG/ML 2 ML VIAL IV PRN (15:55)
--- NOTE | 2021-10-25 16:36 | Death Pronouncement Note ---
Date of Service October 25, 2021 Pronouncement Note Admission Date October 25, 2021 Preliminary Cause of (1) Multifocal pneumonia: Additional Data Confirmation of : no pulse, no respirations and no heart sounds Pronouncement Performed By: Attending Physician Family: at bedside Attending physician: Bar Menard MD Supervising Physician Co-Signing Physician Notes condolences extended to patient's son Celestino at the bedside
--- NOTE | 2021-10-25 16:36 | Discharge Summary ---
Date of Service October 25, 2021 Admission HPI Per Admitting Provider This is a 86 yo F with PMhx of Chronic A. fib, history of aspiration pneumonia, sacral ulcer, multiple sclerosis, chronic pain, urinary retention, hypothyroidism, hyponatremia, hypomagnesemia, history of endocarditis who presented to the ER after undergoing cardiac arrest and resuscitation in the field. Son reports she had a fever last night however did not think much of it, as this has happened on and off before with her hx of MS. Fever of 101 last night around 9 pm. She ate a late dinner at 10-11 pm, and then proceeded to take her HS meds at 0100 and went to bed. Around 0500 the son woke up because of hear ing her possibly talking to herself. He realized that she was working to breath and sounded like there was phlegm in her throat. He attempted to get her to swallow but to no avail. Pt then within 10 minutes slowly stopped breathing and he attempted compressions while she was in bed. He called 911 and they instructed him to move her to the floor and then proceeded to do more compressions. EMS arrived soon thereafter on scene and the patient was in a PEA rhythm. They provided CPR and 3 mg IV epinephrine as well as endotracheal intubation with ROSC. She was transported to the ED for evaluation. She was given two 0.1 mg doses of IV epinephrine in route. She has no spontaneous breathing on her arrival.There are no pupil reflexes or gag reflex. Pt is currently being maintained on norepi gtt and with the attempt to wean her off, BP again drops to systolic of 80s. The son at bedside reports that he is just "not ready" and states he hasn't called his brother, who is living in [place]. Goals of care discussion was held with him at bedside and although he knows her quality of life was poor prior to this: bedbound, hasn't walked in 20 years, sacral decubitus ulceration that is nonhealing, and multiple episodes of aspiration pneumonia. He at this time want me to call the ICU. Discussed with the middle school volleyball coach [employer] kindergarten teacher who agrees that this patient would have good outcomes in the event that she would code again. Will further discuss with the family regarding transition to comfort care this morning. Admission Exam (Per Admitting) Constitutional Physical Exam: General: sedated and intubated on norepinephrine gtt, under bear huggar due to hypothermia Head: Normocephalic, atraumatic ENT: no pupil reflex, glazed eyes, intubated, mucous membranes dry Chest: Diffuse coarse breath sounds on intubation and secretions Cardiac: Regular rate and rhythm, no murmur, no JVD, weak peripheral pulses Abdominal: NABS x 4 quadrants, soft, nondistended, aldana catheter in place Extremities: Diffuse atrophy, ecchymosis of the lower extremities and feet are blue, + peripheral edema of feet bilaterally, no erythema Psych: Normal mood and affect Neuro:sedated and intubated, strength cannot be assessed, no pupil reflex, no gag reflex Discharge Data Consultations 10/25/21 09:27 ED Decision to Admit Stat 10/25/21 12:22 Consult Music Writer Routine Hospital Course (1) Multifocal pneumonia: per [facility] Karen Villatoro's notes with addendum: (1) Cardiac arrest: (2) Acidosis, lactic: (3) Multifocal pneumonia: (4) Elevated troponin: (5) Anoxic brain injury: Plan: - Admit to ICU - Goals of care discussion was held with the son at bedside, currently he wants us to continue with current management and maintain the patient on the drips as he is "just not ready". He has not yet discussed his mothers issues with his brother who lives in [place]. We discussed quality of life, poor prognosis, prolonging life with artificial means, anoxic brain injury, etc at bedside. Discussion was also held with the ICU regarding patient's outcome and they are in agreement with our team there is a very poor prognosis. -We will continue to discuss with the patient's son who is at bedside throughout the day regarding transition to comfort care. - S/p cardiac arrest, PEA, epi push x3 in the field, underwent CPR for at least 30 minutes with ROSC. Unfortunately, the patient likely suffered anoxic brain injury with lack of reflexes including pupil response and gag reflex. - Lactic acidosis with 10.4-->9.0, ABG, pH 7.01, PCO2 = 63, PO2 = 220, HCO3 = 16 initially - Troponin 0 0.22, will trend - Follow blood culture, urine culture - Now maintained on ventilator, norepinephrine drip and started on vancomycin and cefepime. We will continue these for now - continue bear anna marie, aldana cath is chronic due to MS, she is colonized with bacteria, no urinary sx per the son - Imaging studies reviewed showing multifocal pna vs contusions from chest compressions 430pm Levophed increased but patient's BP continued to decreased Music Writer team contacted the patient's son- requested for terminal extubation patient pronounced 410pm patient's son Celestino at the bedside (6) Stage III pressure ulcer of right buttock: (7) Osteomyelitis: (8) Multiple sclerosis:
[2021-10-25] MEDS ORDERED: HEPARIN SOD 5,000 UNIT/0.5 ML VIAL SQ SCH (21:00)
== END 2021-10-25 18:40 | disposition expired | DRG 296 ==
LOC: ED 06:48 → 1E 11:07